=== PATIENT | female | born 1975 | race Two or more races ===

== ENCOUNTER 2017-05-03 15:35 | Inpatient (IN) | payer OTHER ==
[2017-05-03 17:49] VITALS: BMI 26.9
--- NOTE | 2017-05-03 19:00 | HP ---
Admission [facility] Chief Complaint: "I am here for rehab, I want to get better. I wan to be normal be off all off this stuff." Allergies/Adverse Reactions: Allergies Allergy/AdvReac Type Severity Reaction Status Date / Time divalproex sodium Allergy Severe Difficulty Verified 05/03/17 17:43 [From Depakote] Breathing pregabalin [From Lyrica] Allergy Severe Rash Verified 03/25/15 13:06 tramadol Allergy Severe Verified 03/25/15 13:06 History of Present Illness: 41 yo female with hx cocaine and nicotine dependence and occasional IV heroin dependence is here seeking rehab. PMHX: Fibromyalgia, Trigeminal neuralgia, Sciatica right lower extremity , Hep C, depression, asthma, Bipolar, mood disorder, anxiety, panic attacks. Last detox completed at [facility] 04/29/17. Denies hx of overdose. Reports last psychiatric admission was 4 months ago for suicide attempt by trying to attempt suicide. Patient currently denies suicide homicidal ideation. Longest period of sobriety 8 months. Currently attends out patient [facility] currently on 180 mg, last medicated . Exam Limitations: No Limitations - Ebola screening Have you traveled outside of the country in the last 21 days: No Have you had contact with anyone from an Ebola affected area: No Have you been sick,other than usual withdrawal symptoms: No Do you have a fever: No - Review of Systems Constitutional: Changes in sleep EENT: reports: Blurred Vision (wears glasses) Respiratory: reports: Wheezing Cardiac: reports: No Symptoms Reported GI: reports: Constipated, Poor Fluid Intake : reports: No Symptoms Reported Musculoskeletal: reports: No Symptoms Reported Integumentary: reports: No Symptoms Reported Neuro: reports: Seizure (last seizure 8 months ago) Endocrine: reports: No Symptoms Reported Hematology: reports: Anemia Psychiatric: reports: Orientated x3, Anxious Other Systems: Reviewed and Negative Patient History - Patient Medical History Hx Anemia: Yes (ON SUPLEMWNTS) Hx Asthma: Yes (Pt is on MDI) Hx Chronic Obstructive Pulmonary Disease (COPD): No Hx Cancer: No Hx Cardiac Disorders: No Hx Congestive Heart Failure: No Hx Hypertension: Yes (pt has a hx of HTN but is not meds.GOT OFF THE MED BY HER PMD PER PT.) Hx Hypercholesterolemia: No Hx Pacemaker: No HX Cerebrovascular Accident: No Hx Seizures: Yes (klonopin related seizure 8 months ago ) Hx Dementia: No Hx Diabetes: No Hx Gastrointestinal Disorders: No Hx Liver Disease: Yes (Hep C ) Hx Genitourinary Disorders: No Hx Sexually Transmitted Disorders: No Hx Renal Disease (ESRD): No Hx Thyroid Disease: No Hx Human Immunodeficiency Virus (HIV): No (NEGATIVE HX) Hx Hepatitis C: No Hx Depression: Yes Hx Suicide Attempt: Yes (Pt tried to overdose at age 17 yrs.) Hx Bipolar Disorder: Yes Hx Schizophrenia: No - Patient Surgical History Past Surgical History: Yes Hx Neurologic Surgery: No Hx Cataract Extraction: No Hx Cardiac Surgery: No Hx Lung Surgery: No Hx Breast Surgery: No Hx Breast Biopsy: No Hx Abdominal Surgery: No Hx Appendectomy: No Hx Cholecystectomy: No Hx Genitourinary Surgery: No Hx Section: No Hx Orthopedic Surgery: No Hx Hysterectomy: No Other Surgical History: Pt had sx for a pilonidal cyst. Anesthesia Reaction: No - PPD History Previous Implant?: Yes Documented Results: Negative w/proof Date: 03/27/15 PPD to be Administered?: Yes - Reproductive History Patient is a Female of Child Bearing Age (11 -55 yrs old): Yes Last Menstrual Period: 04/26/17 Patient : No - Smoking Cessation Smoking history: Current every day smoker Have you smoked in the past 12 months: Yes Aproximately how many cigarettes per day: 20 Hx Chewing Tobacco Use: No Initiated information on smoking cessation: Yes 'Breaking Loose' booklet given: 05/03/17 - Substances Abused Cocaine Route: Inhalation Frequency: Daily Amount used: $40-50 Age of first use: 39 Date of Last Use: 05/01/17 Family Disease History - Family Disease History Family Disease History: Diabetes: Mother (HTN), CA: Grandparent (GFATHER- ), Other: Father (HTN,LIVER CIRRHOSIS,DEPRESSION,DRUG ADDICTION- ), Mother Admission Physical Exam [facility] - Vital Signs Vital Signs: Vital Signs - 24 hr 05/03/17 17:43 Temperature 98.4 F Pulse Rate 61 Respiratory 18 Rate Blood Pressure 131/81 - Physical General Appearance: Yes: No Apparent Distress, Nourished, Appropriately Dressed , Anxious HEENTM: Yes: EOMI, Hearing grossly Normal, Normal ENT Inspection, Normocephalic , Normal Voice, Pharynx Normal, Tm's normal Respiratory: Yes: Chest Non-Tender, Lungs Clear, Normal Breath Sounds, No Respiratory Distress, No Accessory Muscle Use Neck: Yes: No masses,lesions,Nodules, Trachea in good position Breast: Yes: Breast Exam Deferred Cardiology: Yes: Regular Rhythm, Regular Rate Abdominal: Yes: Normal Bowel Sounds, Non Tender, Flat, Soft Genitourinary: Yes: Within Normal Limits Back: Yes: Normal Inspection Musculoskeletal: Yes: full range of Motion, Gait Steady, Pelvis Stable Extremities: Yes: Normal Capillary Refill, Normal Inspection, Normal Range of Motion, Non-Tender Neurological: Yes: 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 manager II-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 NML intact, Fully Oriented, Alert, Motor Strength 5/5, Normal Mood/Affect Integumentary: Yes: Normal Color, Dry, Warm Lymphatic: Yes: Within Normal Limits - Diagnostic (1) Anemia Current Visit: Yes Status: Chronic Qualifiers: Anemia type: unspecified type Qualified Code(s): D64.9 - Anemia, unspecified (2) Fibromyalgia Current Visit: Yes Status: Chronic (3) Trigeminal neuralgia Current Visit: Yes Status: Chronic (4) Sciatica of right side Current Visit: Yes Status: Chronic (5) Difficulty sleeping Current Visit: Yes Status: Acute (6) Psychiatric disorder Current Visit: Yes Status: Suspected (7) HTN (hypertension) Current Visit: Yes Status: Chronic Qualifiers: Hypertension type: essential hypertension Qualified Code(s): I10 - Essential (primary) hypertension (8) Asthma Current Visit: Yes Status: Chronic Qualifiers: Asthma severity: moderate Asthma complication type: uncomplicated Qualified Code(s): J45.20 - Mild intermittent asthma, uncomplicated (9) Cocaine dependence, uncomplicated Current Visit: Yes Status: Chronic (10) Methadone maintenance therapy patient Current Visit: Yes Status: Chronic Comment: on 180 mg Methadone, dose pending verification (11) Nicotine dependence Current Visit: Yes Status: Chronic Qualifiers: Nicotine product type: cigarettes Substance use status: uncomplicated Qualified Code(s): F17.210 - Nicotine dependence, cigarettes, uncomplicated (12) Constipation Current Visit: Yes Status: Acute [facility] Breath Alcohol Content Breath Alcohol Content: 0 Urine Pregancy Test - Result Urine Test Results: Negative- NO Line Present Urine Drug Screen - Results Drug Screen Negative: No Urine Drug Screen Results: EMILIO-Cocaine, BZO-Benzodiazepines, MTD-Methadone, TCA- Tricyclic Antidepress Inpatient Rehab Admission - Initial Determination Are CD services needed?: Yes Free of communicable disease: Yes Not in need of hospitalization: Yes - Rehab Admission Criteria Previous failed treatment: Yes Poor recovery environment: Yes Comorbidities: Yes Lacks judgement: Yes Patient is meeting Inpatient Rehab admission criteria:: Yes
[2017-05-03] MEDS ORDERED: LOPERAMIDE HCL 2 MG CAPSULE PO PRN (19:17)
[2017-05-03] MEDS ORDERED: guaiFENesin/D-METHORPHAN HB 10 ML UNIT-DOSE CUPS PO PRN (19:17)
[2017-05-03] MEDS ORDERED: P-EPHED 60MG/TRIPROLIDI 2.5MG TABLET PO PRN (19:17)
[2017-05-03] MEDS ORDERED: MENTHOL/PHENOL 1 EACH UD MM PRN (19:17)
[2017-05-03] MEDS ORDERED: MAGNESIUM CITRATE 300 ML BOTTLE PO PRN (19:17)
[2017-05-03] MEDS ORDERED: ALBUTEROL SO4 18 GM HFA INHALER IH PRN (19:18)
[2017-05-03] MEDS ORDERED: ALBUTEROL SO4 2.5/IPRATROPIUM 0.5 INH SOL 3 ML VIAL.NEB. NEB PRN (19:26)
[2017-05-03] MEDS ORDERED: TUBERCULIN PPD 5 TU/0.1ML VIAL ID ONE (22:25)
[2017-05-03 22:40] LABS: URINE APPEARANCE SLCLOUDY; URINE BILIRUBIN NEGATIVE (NEGATIVE); URINE BLOOD NEGATIVE (NEGATIVE); URINE COLOR DKYELLOW; URINE GLUCOSE (UA) NEGATIVE (NEGATIVE); URINE KETONE NEGATIVE (NEGATIVE); URINE LEUK ESTERASE TRACE (NEGATIVE); URINE NITRITE NEGATIVE (NEGATIVE); URINE PROTEIN NEGATIVE (NEGATIVE)
[2017-05-03 23:00] LABS: EPI CELLS RARE /HPF (FEW); URINE MUCUS MANY
[2017-05-03] MEDS: levETIRAcetam 500 MG TABLET (FP) PO SCH (23:21)
[2017-05-03] MEDS: QUEtiapine FUMARATE 300 MG TABLET PO SCH (23:21)
[2017-05-03] MEDS: MIRTAZAPINE 30 MG TABLET (FP) PO SCH (23:22)
[2017-05-03] MEDS: DOCUSATE SODIUM 100 MG CAPSULE (FP) PO SCH (23:22)
[2017-05-03] MEDS: NICOTINE POLACRILEX 2 MG GUM BC PRN (23:23)
[2017-05-03] MEDS: BUDESONIDE/FORMETEROL FUMARATE 160/4.5 mcg INHALER IH SCH (23:23)
[2017-05-03] MEDS: THIAMINE HCL 100 MG TABLET (FP) PO SCH (23:24)
[2017-05-04] MEDS: DOCUSATE SODIUM 100 MG CAPSULE (FP) PO SCH ×3 (06:25→21:05)
[2017-05-04] MEDS ORDERED: METHADONE HCL 40 MG DISPERSABLE TABLET PO ONE (07:34)
[2017-05-04] MEDS ORDERED: METHADONE 160 MG, METHADONE 10 MG PO ONE (09:00)
[2017-05-04] MEDS ORDERED: PT OWN MED DRAWER 7, Y5N ONE ×3 (09:03→21:08)
[2017-05-04] MEDS: levETIRAcetam 500 MG TABLET (FP) PO SCH ×2 (09:53→21:05)
[2017-05-04] MEDS: PRENATAL VITAMINS W/ FOLIC ACID TABLET (FP) PO SCH (09:53)
[2017-05-04] MEDS: NICOTINE 21 MG/24 HOURS TOPICAL PATCH TD SCH (09:53)
[2017-05-04] MEDS: NICOTINE POLACRILEX 2 MG GUM BC PRN ×4 (09:54→21:07)
[2017-05-04 10:25] LABS: HEMATOCRIT 34.2 % (32.4-45.2); HEMOGLOBIN 11.6 GM/dL (10.7-15.3); MCH 31.3 pg (25.7-33.7); MCHC 33.9 g/dl (32.0-36.0); MEAN CELL VOLUME 92.5 fl (80-96); MEAN PLT VOLUME 8.9 fl (7.5-11.1); PLATELET COUNT 239 K/MM3 (134-434); RDW 14.7 % (11.6-15.6); WHITE BLOOD COUNT 3.7 K/mm3 (4.0-10.0)
[2017-05-04 10:27] LABS: CHLORIDE 107 mmol/L (98-107); POTASSIUM 4.3 mmol/L (3.5-5.1); SODIUM 139 mmol/L (136-145)
[2017-05-04 10:42] LABS: ALBUMIN 3.6 g/dl (3.4-5.0); ALK PHOS 45 U/L (45-117); ANION GAP 5 (8-16); BILIRUBIN,TOTAL 0.4 mg/dL (0.2-1.0); BLOOD UREA NITROGEN 12 mg/dL (7-18); CALCIUM 8.5 mg/dL (8.5-10.1); CO2 27 mmol/L (21-32); CREATININE 0.8 mg/dL (0.55-1.02); GLUCOSE,RANDOM 99 mg/dL (74-106); SGOT/AST 37 U/L (15-37); SGPT/ALT 55 U/L (12-78); TOT PROT 6.8 g/dl (6.4-8.2)
[2017-05-04] MEDS: BUDESONIDE/FORMETEROL FUMARATE 160/4.5 mcg INHALER IH SCH ×2 (10:56→21:07)
--- NOTE | 2017-05-04 12:01 | EKG ---
Test Reason : Blood Pressure : / mmHG Vent. Rate : 058 BPM Atrial Rate : 058 BPM P-R Int : 116 ms QRS Dur : 096 ms QT Int : 472 ms P-R-T Axes : 047 052 048 degrees QTc Int : 463 ms SINUS BRADYCARDIA OTHERWISE NORMAL ECG NO PREVIOUS ECGS AVAILABLE Confirmed by MD Nicanor, Catrachito ([id number]) on 05/04/2017 12:01:02 PM Referred By: Confirmed By:Catrachito Vick MD
[2017-05-04] MEDS: MAG HYDROX/AL HYDROX/SIMETH 30 ML UNIT-DOSE CUP PO PRN (15:52)
[2017-05-04] MEDS: QUEtiapine FUMARATE 300 MG TABLET PO SCH (21:04)
[2017-05-04] MEDS: MIRTAZAPINE 30 MG TABLET (FP) PO SCH (21:08)
[2017-05-04] MEDS: THIAMINE HCL 100 MG TABLET (FP) PO SCH (21:08)
[2017-05-04] MEDS ORDERED: MIRTAZAPINE 30 MG TABLET (FP) PO SCH (22:00)
[2017-05-04] MEDS ORDERED: QUEtiapine FUMARATE 300 MG TABLET PO SCH (22:00)
[2017-05-05] MEDS: MAG HYDROX/AL HYDROX/SIMETH 30 ML UNIT-DOSE CUP PO PRN ×2 (01:35→09:37)
[2017-05-05] MEDS ORDERED: METHADONE HCL 10 MG TABLET ONE (04:07)
[2017-05-05] MEDS ORDERED: METHADONE HCL 40 MG DISPERSABLE TABLET ONE (04:08)
[2017-05-05] MEDS ORDERED: METHADONE 160 MG, METHADONE 10 MG PO ONE (06:00)
[2017-05-05] MEDS: DOCUSATE SODIUM 100 MG CAPSULE (FP) PO SCH ×3 (06:26→21:54)
[2017-05-05] MEDS: NICOTINE POLACRILEX 2 MG GUM BC PRN ×4 (06:28→17:43)
[2017-05-05] MEDS ORDERED: METHADONE HCL 10 MG TABLET PO ONE (07:35)
[2017-05-05] MEDS ORDERED: PT OWN MED DRAWER 7, Y5N ONE ×3 (09:21→21:57)
--- NOTE | 2017-05-05 09:46 | HP ---
Psychiatrist Admission - Data Date of interview: 05/05/17 Admission source: [facility] Identifying data: This is the first admission to [address] [place] [address] for this 41 years old female mother of 2 ,domiciled,unemployed. Medical History: Significant for Anemia,Fibromialgia. Psychiatric History: Patient is poor historia,reports being dx with Bipolar disorder about 5-6 years ago.She reports 2 psychiatric hospitalizations a few years ago due to severe depression.last psychiatric admission was 4 months ago due to suicidal attempt.She reports first suicidal attempt (DOD) at 17 years old.She stopped to see her psychiatrsit and obtained psychotropic medications from her PCP until recently.Patient is staill complaining of anxiety,mood swings ,difficulties to fall asleep.Current medications:Seroquel 300 mg po hs and Remeron 45 mg po hs,Clonopin 1 mg po prn for anxiety. Physical/Sexual Abuse/Trauma History: not willing to discuss at this time Vital Signs: Vital Signs - 24 hr 05/05/17 05/05/17 03:30 07:29 Temperature 98.1 F Pulse Rate 74 Respiratory 16 18 Rate Blood Pressure 105/64 Allergies/Adverse Reactions: Allergies Allergy/AdvReac Type Severity Reaction Status Date / Time divalproex sodium Allergy Severe Difficulty Verified 05/03/17 17:43 [From Depakote] Breathing pregabalin [From Lyrica] Allergy Severe Rash Verified 03/25/15 13:06 tramadol Allergy Severe Verified 03/25/15 13:06 Date of last physical exam: 05/03/17 Concur with the findings of this exam: Yes - Substance Abuse/Tx History Hx Alcohol Use: No Hx Substance Use: Yes (benzo since 37 yo,12 mg daily,cocaine since 31,heroin since 36 yo,4 bags da) Substance Use Type: Alcohol, Cocaine, Heroin, Tranquilizers Hx Substance Use Treatment: Yes (,last det 04/29/17 [facility]) Mental Status Exam - Mental Status Exam Alert and Oriented to: Time, Place, Person Cognitive Function: Grossly Intact Patient Appearance: Unkempt Mood: Nervous Affect: Labile Patient Behavior: Cooperative Speech Pattern: Clear Voice Loudness: Normal Thought Process: Goal Oriented Thought Disorder: Not Present Hallucinations: Denies Suicidal Ideation: Denies Homicidal Ideation: Denies Insight/Judgement: Fair Sleep: Difficulty falling asleep Appetite: Good Muscle strength/Tone: Normal Psychiatric Findings - Problem List ([place] 1, 2,3) (1) Anemia Current Visit: Yes Status: Chronic Qualifiers: Anemia type: unspecified type Qualified Code(s): D64.9 - Anemia, unspecified (2) Asthma Current Visit: Yes Status: Chronic Qualifiers: Asthma severity: moderate Asthma complication type: uncomplicated (3) Fibromyalgia Current Visit: Yes Status: Chronic (4) HTN (hypertension) Current Visit: Yes Status: Chronic Qualifiers: Hypertension type: essential hypertension Qualified Code(s): I10 - Essential (primary) hypertension (5) Methadone maintenance therapy patient Current Visit: Yes Status: Chronic Comment: on 180 mg Methadone, dose pending verification (6) Cocaine dependence Current Visit: Yes Status: Chronic (7) Bipolar II disorder Current Visit: Yes Status: Chronic (8) Opioid dependence on agonist therapy Current Visit: Yes Status: Chronic - Initial Treatment Plan Initial Treatment Plan: Continue Seroquel 300 mg po hs,Remeron 45 mg po hs,add Belsomra 10 mg po hs prn for insomnia.Will monitor progress.
[2017-05-05] MEDS: PRENATAL VITAMINS W/ FOLIC ACID TABLET (FP) PO SCH (10:23)
[2017-05-05] MEDS: levETIRAcetam 500 MG TABLET (FP) PO SCH ×2 (10:23→21:54)
[2017-05-05] MEDS: NICOTINE 21 MG/24 HOURS TOPICAL PATCH TD SCH (10:23)
[2017-05-05] MEDS: BUDESONIDE/FORMETEROL FUMARATE 160/4.5 mcg INHALER IH SCH ×2 (10:24→21:57)
[2017-05-05] MEDS: MAGNESIUM HYDROX 2400MG/30ML ORAL SUSPENSION 30 ML CUP PO PRN (11:58)
[2017-05-05] MEDS: RANITIDINE HCL 150 MG TABLET (FP) PO SCH ×2 (13:36→21:54)
[2017-05-05] MEDS: COLLOIDAL OATMEAL 1 BAR EACH TP PRN (13:38)
[2017-05-05] MEDS: FLUTICASONE PROP 0.05% 16 GM NASAL SPRAY NS SCH (15:17)
[2017-05-05] MEDS: hydrOXYzine PAMOATE 50 MG CAPSULE (FP) PO PRN (17:44)
[2017-05-05] MEDS: THIAMINE HCL 100 MG TABLET (FP) PO SCH (21:54)
[2017-05-05] MEDS: QUEtiapine FUMARATE 300 MG TABLET PO SCH (21:58)
[2017-05-05] MEDS: MIRTAZAPINE 30 MG TABLET (FP) PO SCH (21:59)
[2017-05-05] MEDS: SUVOREXANT 10 MG TABLET PO PRN (21:59)
[2017-05-06] MEDS ORDERED: METHADONE HCL 10 MG TABLET PO SCH (06:00)
[2017-05-06] MEDS ORDERED: METHADONE HCL 40 MG DISPERSABLE TABLET ONE (06:19)
[2017-05-06] MEDS ORDERED: METHADONE HCL 10 MG TABLET ONE (06:19)
[2017-05-06] MEDS: METHADONE 160 MG, METHADONE 20 MG PO SCH (06:23)
[2017-05-06] MEDS: DOCUSATE SODIUM 100 MG CAPSULE (FP) PO SCH ×3 (06:24→21:31)
[2017-05-06] MEDS: NICOTINE POLACRILEX 2 MG GUM BC PRN ×6 (06:25→21:34)
[2017-05-06] MEDS: hydrOXYzine PAMOATE 50 MG CAPSULE (FP) PO PRN ×3 (08:44→17:03)
[2017-05-06] MEDS: FLUTICASONE PROP 0.05% 16 GM NASAL SPRAY NS SCH (10:08)
[2017-05-06] MEDS: levETIRAcetam 500 MG TABLET (FP) PO SCH ×2 (10:09→21:32)
[2017-05-06] MEDS: NICOTINE 21 MG/24 HOURS TOPICAL PATCH TD SCH (10:09)
[2017-05-06] MEDS: BUDESONIDE/FORMETEROL FUMARATE 160/4.5 mcg INHALER IH SCH ×2 (10:10→22:38)
[2017-05-06] MEDS: PRENATAL VITAMINS W/ FOLIC ACID TABLET (FP) PO SCH (10:10)
[2017-05-06] MEDS: RANITIDINE HCL 150 MG TABLET (FP) PO SCH ×2 (10:10→21:31)
[2017-05-06] MEDS: THIAMINE HCL 100 MG TABLET (FP) PO SCH (21:31)
[2017-05-06] MEDS: QUEtiapine FUMARATE 300 MG TABLET PO SCH (21:31)
[2017-05-06] MEDS: MIRTAZAPINE 30 MG TABLET (FP) PO SCH (21:32)
[2017-05-06] MEDS: SODIUM CHLORIDE NASAL SPRAY 44 ML BOTTLE NS PRN (21:33)
[2017-05-06] MEDS: SUVOREXANT 10 MG TABLET PO PRN (21:36)
[2017-05-06] MEDS: IBUPROFEN 400 MG TABLET (FP) PO PRN (22:38)
[2017-05-07] MEDS ORDERED: METHADONE HCL 10 MG TABLET ONE (05:58)
[2017-05-07] MEDS ORDERED: METHADONE HCL 40 MG DISPERSABLE TABLET ONE (05:59)
[2017-05-07] MEDS: DOCUSATE SODIUM 100 MG CAPSULE (FP) PO SCH ×3 (06:20→21:37)
[2017-05-07] MEDS: hydrOXYzine PAMOATE 50 MG CAPSULE (FP) PO PRN ×4 (06:20→20:08)
[2017-05-07] MEDS: NICOTINE POLACRILEX 2 MG GUM BC PRN ×4 (06:20→20:08)
[2017-05-07] MEDS: METHADONE 160 MG, METHADONE 20 MG PO SCH (06:21)
[2017-05-07] MEDS ORDERED: PT OWN MED DRAWER 7, Y5N ONE ×2 (08:47→10:35)
[2017-05-07] MEDS: RANITIDINE HCL 150 MG TABLET (FP) PO SCH ×2 (10:31→21:37)
[2017-05-07] MEDS: levETIRAcetam 500 MG TABLET (FP) PO SCH ×2 (10:31→21:37)
[2017-05-07] MEDS: BUDESONIDE/FORMETEROL FUMARATE 160/4.5 mcg INHALER IH SCH ×2 (10:31→21:35)
[2017-05-07] MEDS: NICOTINE 21 MG/24 HOURS TOPICAL PATCH TD SCH (10:31)
[2017-05-07] MEDS: PRENATAL VITAMINS W/ FOLIC ACID TABLET (FP) PO SCH (10:31)
[2017-05-07] MEDS: SODIUM CHLORIDE NASAL SPRAY 44 ML BOTTLE NS PRN ×2 (10:35→21:35)
[2017-05-07] MEDS: FLUTICASONE PROP 0.05% 16 GM NASAL SPRAY NS SCH (10:41)
[2017-05-07] MEDS: MAG HYDROX/AL HYDROX/SIMETH 30 ML UNIT-DOSE CUP PO PRN (11:16)
[2017-05-07] MEDS: IBUPROFEN 400 MG TABLET (FP) PO PRN (20:06)
[2017-05-07] MEDS: MIRTAZAPINE 30 MG TABLET (FP) PO SCH (21:35)
[2017-05-07] MEDS: SUVOREXANT 10 MG TABLET PO PRN (21:35)
[2017-05-07] MEDS: QUEtiapine FUMARATE 300 MG TABLET PO SCH (21:37)
[2017-05-07] MEDS: THIAMINE HCL 100 MG TABLET (FP) PO SCH (21:37)
[2017-05-08] MEDS ORDERED: METHADONE HCL 10 MG TABLET ONE (03:27)
[2017-05-08] MEDS ORDERED: METHADONE HCL 40 MG DISPERSABLE TABLET ONE (03:28)
[2017-05-08] MEDS: DOCUSATE SODIUM 100 MG CAPSULE (FP) PO SCH ×3 (06:16→21:03)
[2017-05-08] MEDS: hydrOXYzine PAMOATE 50 MG CAPSULE (FP) PO PRN ×4 (06:16→21:08)
[2017-05-08] MEDS: METHADONE 160 MG, METHADONE 20 MG PO SCH (06:17)
[2017-05-08] MEDS: NICOTINE POLACRILEX 2 MG GUM BC PRN ×5 (06:17→21:07)
[2017-05-08] MEDS: SODIUM CHLORIDE NASAL SPRAY 44 ML BOTTLE NS PRN ×2 (10:23→21:07)
[2017-05-08] MEDS: FLUTICASONE PROP 0.05% 16 GM NASAL SPRAY NS SCH (10:23)
[2017-05-08] MEDS: NICOTINE 21 MG/24 HOURS TOPICAL PATCH TD SCH (10:23)
[2017-05-08] MEDS: PRENATAL VITAMINS W/ FOLIC ACID TABLET (FP) PO SCH (10:24)
[2017-05-08] MEDS: RANITIDINE HCL 150 MG TABLET (FP) PO SCH ×2 (10:24→21:03)
[2017-05-08] MEDS: levETIRAcetam 500 MG TABLET (FP) PO SCH ×2 (10:24→21:03)
[2017-05-08] MEDS: BUDESONIDE/FORMETEROL FUMARATE 160/4.5 mcg INHALER IH SCH ×2 (10:24→21:03)
[2017-05-08] MEDS: IBUPROFEN 400 MG TABLET (FP) PO PRN (16:59)
[2017-05-08] MEDS: COLLOIDAL OATMEAL 1 BAR EACH TP PRN (17:00)
[2017-05-08] MEDS: MAG HYDROX/AL HYDROX/SIMETH 30 ML UNIT-DOSE CUP PO PRN (17:06)
[2017-05-08] MEDS: QUEtiapine FUMARATE 300 MG TABLET PO SCH (21:03)
[2017-05-08] MEDS: THIAMINE HCL 100 MG TABLET (FP) PO SCH (21:03)
[2017-05-08] MEDS: SUVOREXANT 10 MG TABLET PO PRN (21:06)
[2017-05-08] MEDS: MIRTAZAPINE 30 MG TABLET (FP) PO SCH (21:09)
[2017-05-09] MEDS ORDERED: METHADONE HCL 10 MG TABLET ONE (03:56)
[2017-05-09] MEDS ORDERED: METHADONE HCL 40 MG DISPERSABLE TABLET ONE (03:56)
[2017-05-09] MEDS: METHADONE 160 MG, METHADONE 20 MG PO SCH (06:35)
[2017-05-09] MEDS: hydrOXYzine PAMOATE 50 MG CAPSULE (FP) PO PRN ×3 (06:36→17:08)
[2017-05-09] MEDS: NICOTINE POLACRILEX 2 MG GUM BC PRN ×5 (06:36→21:25)
[2017-05-09] MEDS: DOCUSATE SODIUM 100 MG CAPSULE (FP) PO SCH ×3 (06:36→21:21)
[2017-05-09] MEDS: IBUPROFEN 400 MG TABLET (FP) PO PRN (07:13)
[2017-05-09] MEDS: MAGNESIUM HYDROX 2400MG/30ML ORAL SUSPENSION 30 ML CUP PO PRN (07:14)
[2017-05-09] MEDS ORDERED: levETIRAcetam 500 MG TABLET (FP) PO ONE (07:17)
--- NOTE | 2017-05-09 07:18 | PN ---
[facility] Progress Note Note: give keppra 500 mg po now for keppra level of 6.9
[2017-05-09] MEDS ORDERED: PT OWN MED DRAWER 7, Y5N ONE (08:55)
[2017-05-09] MEDS: levETIRAcetam 500 MG TABLET (FP) PO SCH ×2 (10:16→21:21)
[2017-05-09] MEDS: PRENATAL VITAMINS W/ FOLIC ACID TABLET (FP) PO SCH (10:16)
[2017-05-09] MEDS: BUDESONIDE/FORMETEROL FUMARATE 160/4.5 mcg INHALER IH SCH ×2 (10:17→21:22)
[2017-05-09] MEDS: RANITIDINE HCL 150 MG TABLET (FP) PO SCH ×2 (10:17→21:22)
[2017-05-09] MEDS: NICOTINE 21 MG/24 HOURS TOPICAL PATCH TD SCH (10:18)
[2017-05-09] MEDS: SODIUM CHLORIDE NASAL SPRAY 44 ML BOTTLE NS PRN ×2 (10:18→21:25)
[2017-05-09] MEDS: FLUTICASONE PROP 0.05% 16 GM NASAL SPRAY NS SCH (10:19)
[2017-05-09] MEDS: ACETAMINOPHEN 325 MG TABLET (FP) PO PRN (11:23)
[2017-05-09] MEDS ORDERED: SUVOREXANT 10 MG TABLET PO PRN (12:18)
[2017-05-09] MEDS: MAG HYDROX/AL HYDROX/SIMETH 30 ML UNIT-DOSE CUP PO PRN (17:37)
[2017-05-09] MEDS: THIAMINE HCL 100 MG TABLET (FP) PO SCH (21:21)
[2017-05-09] MEDS: QUEtiapine FUMARATE 300 MG TABLET PO SCH (21:21)
[2017-05-09] MEDS: MIRTAZAPINE 30 MG TABLET (FP) PO SCH (21:22)
[2017-05-09] MEDS: SUVOREXANT 10 MG TABLET PO PRN (21:24)
[2017-05-10] MEDS: hydrOXYzine PAMOATE 50 MG CAPSULE (FP) PO PRN ×4 (01:13→17:09)
[2017-05-10] MEDS: NICOTINE POLACRILEX 2 MG GUM BC PRN ×5 (01:14→21:12)
[2017-05-10] MEDS ORDERED: METHADONE HCL 10 MG TABLET ONE (03:15)
[2017-05-10] MEDS ORDERED: METHADONE HCL 40 MG DISPERSABLE TABLET ONE (03:16)
[2017-05-10] MEDS: METHADONE 160 MG, METHADONE 20 MG PO SCH (06:20)
[2017-05-10] MEDS: DOCUSATE SODIUM 100 MG CAPSULE (FP) PO SCH ×3 (06:21→21:09)
[2017-05-10] MEDS: IBUPROFEN 400 MG TABLET (FP) PO PRN ×2 (06:21→18:49)
[2017-05-10] MEDS ORDERED: PT OWN MED DRAWER 7, Y5N ONE (08:44)
[2017-05-10] MEDS: PRENATAL VITAMINS W/ FOLIC ACID TABLET (FP) PO SCH (09:16)
[2017-05-10] MEDS: RANITIDINE HCL 150 MG TABLET (FP) PO SCH ×2 (09:16→21:10)
[2017-05-10] MEDS: levETIRAcetam 500 MG TABLET (FP) PO SCH ×2 (09:16→21:10)
[2017-05-10] MEDS: NICOTINE 21 MG/24 HOURS TOPICAL PATCH TD SCH (09:17)
[2017-05-10] MEDS: BUDESONIDE/FORMETEROL FUMARATE 160/4.5 mcg INHALER IH SCH ×2 (09:17→21:13)
[2017-05-10] MEDS: FLUTICASONE PROP 0.05% 16 GM NASAL SPRAY NS SCH (09:18)
[2017-05-10] MEDS: THIAMINE HCL 100 MG TABLET (FP) PO SCH (21:09)
[2017-05-10] MEDS: QUEtiapine FUMARATE 300 MG TABLET PO SCH (21:10)
[2017-05-10] MEDS: MIRTAZAPINE 30 MG TABLET (FP) PO SCH (21:10)
[2017-05-10] MEDS: SUVOREXANT 10 MG TABLET PO PRN (21:12)
[2017-05-11] MEDS: hydrOXYzine PAMOATE 50 MG CAPSULE (FP) PO PRN ×3 (04:42→16:00)
[2017-05-11] MEDS: NICOTINE POLACRILEX 2 MG GUM BC PRN ×2 (04:43→06:49)
[2017-05-11] MEDS ORDERED: METHADONE HCL 40 MG DISPERSABLE TABLET ONE (05:59)
[2017-05-11] MEDS ORDERED: METHADONE HCL 10 MG TABLET ONE (05:59)
[2017-05-11] MEDS: DOCUSATE SODIUM 100 MG CAPSULE (FP) PO SCH ×3 (06:12→21:46)
[2017-05-11] MEDS: METHADONE 160 MG, METHADONE 20 MG PO SCH (06:13)
[2017-05-11] MEDS: MAGNESIUM HYDROX 2400MG/30ML ORAL SUSPENSION 30 ML CUP PO PRN (06:49)
[2017-05-11] MEDS ORDERED: PT OWN MED DRAWER 7, Y5N ONE (09:07)
[2017-05-11] MEDS: NICOTINE 21 MG/24 HOURS TOPICAL PATCH TD SCH (09:46)
[2017-05-11] MEDS: PRENATAL VITAMINS W/ FOLIC ACID TABLET (FP) PO SCH (09:46)
[2017-05-11] MEDS: BUDESONIDE/FORMETEROL FUMARATE 160/4.5 mcg INHALER IH SCH ×2 (09:46→21:47)
[2017-05-11] MEDS: RANITIDINE HCL 150 MG TABLET (FP) PO SCH ×2 (09:46→21:45)
[2017-05-11] MEDS: SODIUM CHLORIDE NASAL SPRAY 44 ML BOTTLE NS PRN ×2 (09:47→21:47)
[2017-05-11] MEDS: levETIRAcetam 500 MG TABLET (FP) PO SCH ×2 (09:47→21:45)
[2017-05-11] MEDS: COLLOIDAL OATMEAL 1 BAR EACH TP PRN (09:49)
[2017-05-11] MEDS: FLUTICASONE PROP 0.05% 16 GM NASAL SPRAY NS SCH (09:49)
[2017-05-11] MEDS: NICOTINE POLACRILEX 4 MG GUM BUC PRN ×4 (12:30→21:47)
[2017-05-11] MEDS: IBUPROFEN 400 MG TABLET (FP) PO PRN (12:36)
[2017-05-11] MEDS: ACETAMINOPHEN 325 MG TABLET (FP) PO PRN ×2 (15:58→21:22)
--- NOTE | 2017-05-11 16:04 | PN ---
[facility] Progress Note (SOAP) Subjective: patietn c/o rash underarms, worried she is Objective: 05/11/17 16:03 Vital Signs - 24 hr 05/11/17 05/11/17 05/11/17 00:30 03:30 06:11 Temperature 97.8 F Pulse Rate 71 Respiratory 17 18 18 Rate Blood Pressure 111/70 round dermatitisunder both arms Assessment: 05/11/17 16:04 prenancy test neg, contact dermatitis - hydrocortisone cream
[2017-05-11] MEDS: THIAMINE HCL 100 MG TABLET (FP) PO SCH (21:44)
[2017-05-11] MEDS: MIRTAZAPINE 30 MG TABLET (FP) PO SCH (21:45)
[2017-05-11] MEDS: QUEtiapine FUMARATE 300 MG TABLET PO SCH (21:45)
[2017-05-12] MEDS: NICOTINE POLACRILEX 4 MG GUM BUC PRN ×4 (03:18→17:26)
[2017-05-12] MEDS: hydrOXYzine PAMOATE 50 MG CAPSULE (FP) PO PRN ×3 (03:18→14:56)
[2017-05-12] MEDS ORDERED: METHADONE HCL 40 MG DISPERSABLE TABLET ONE (03:34)
[2017-05-12] MEDS ORDERED: METHADONE HCL 10 MG TABLET ONE (03:34)
[2017-05-12] MEDS: METHADONE 160 MG, METHADONE 20 MG PO SCH (06:18)
[2017-05-12] MEDS: IBUPROFEN 400 MG TABLET (FP) PO PRN ×2 (06:19→19:38)
[2017-05-12] MEDS: DOCUSATE SODIUM 100 MG CAPSULE (FP) PO SCH ×3 (06:19→21:55)
[2017-05-12] MEDS: FLUTICASONE PROP 0.05% 16 GM NASAL SPRAY NS SCH (10:17)
[2017-05-12] MEDS: NICOTINE 21 MG/24 HOURS TOPICAL PATCH TD SCH (10:17)
[2017-05-12] MEDS: PRENATAL VITAMINS W/ FOLIC ACID TABLET (FP) PO SCH (10:18)
[2017-05-12] MEDS: RANITIDINE HCL 150 MG TABLET (FP) PO SCH ×2 (10:18→21:56)
[2017-05-12] MEDS: BUDESONIDE/FORMETEROL FUMARATE 160/4.5 mcg INHALER IH SCH ×2 (10:18→21:57)
[2017-05-12] MEDS: levETIRAcetam 500 MG TABLET (FP) PO SCH ×2 (10:18→21:56)
[2017-05-12] MEDS: ACETAMINOPHEN 325 MG TABLET (FP) PO PRN (10:20)
--- NOTE | 2017-05-12 14:14 | PN ---
Psychiatric Progress Note Vital Signs: Vital Signs Period Temp Pulse Resp BP Sys/Wesley Pulse Ox Last 24 Hr 97.8 F 73 16-18 121/62 Date of Session: 05/12/17 Chief Complaint:: Abebe still depressed and feeling down." Current Medications: Active Medications Generic Name Dose Route Start Last Admin Trade Name Freq PRN Reason Stop Dose Admin Acetaminophen 650 mg 05/03/17 19:17 05/12/17 10:20 Tylenol - PO 650 mg Q4H PRN Administration FEVER Al Hydroxide/Mg Hydroxide 30 ml 05/03/17 19:17 05/09/17 17:37 Mylanta Oral Suspension - PO 30 ml Q6H PRN Administration DYSPEPSIA Albuterol Sulfate 2 puff 05/03/17 19:18 Ventolin Hfa Inhaler - IH Q4H PRN SHORT OF BREATH/WHEEZING Albuterol/Ipratropium 1 amp 05/03/17 19:26 Duoneb - NEB Q6H PRN SHORTNESS OF BREATH Budesonide/Formoterol Fumarate 1 puff 05/03/17 22:00 05/12/17 10:18 Symbicort 160/4.5mcg - IH 1 puff BID SANDY Administration Colloidal Oatmeal 1 applic 05/05/17 12:38 05/11/17 09:49 Aveeno Soap - TP 1 bar DAILY PRN Administration HYGEINE Docusate Sodium 100 mg 05/03/17 22:00 05/12/17 13:05 Colace - PO 100 mg TID SANDY Administration Escitalopram Oxalate 5 mg 05/12/17 14:00 Lexapro - PO DAILY SANDY Eucalyptus/Menthol/Phenol/Sorbitol 1 each 05/03/17 19:17 Cepastat Lozenge - MM Q4H PRN SORE THROAT Fluticasone Propionate 2 spray 05/05/17 13:15 05/12/17 10:17 Flonase - NS Not Given DAILY SANDY Guaifenesin 10 ml 05/03/17 19:17 Robitussin Dm - PO Q6H PRN COUGH Hydrocortisone 1 applic 05/11/17 16:04 Hytone 0.5% Ointment - TP DAILY PRN FOR ITCHING Hydroxyzine Pamoate 50 mg 05/03/17 19:17 05/12/17 10:20 Vistaril - PO 50 mg Q4H PRN Administration AGITATION Ibuprofen 400 mg 05/03/17 19:17 05/12/17 06:19 Motrin - PO 400 mg Q6H PRN Administration Pain level 4-6 Levetiracetam 500 mg 05/03/17 22:00 05/12/17 10:18 Keppra - PO 500 mg BID SANDY Administration Loperamide HCl 4 mg 05/03/17 19:17 Imodium - PO Q6H PRN DIARRHEA Magnesium Citrate 300 ml 05/03/17 19:17 05/06/17 08:46 Citroma - PO 300 ml Q48H PRN Administration CONSTIPATION Magnesium Hydroxide 30 ml 05/03/17 19:17 05/11/17 06:49 Milk Of Magnesia - PO 30 ml DAILY PRN Administration CONSTIPATION Methadone HCl 160 mg/ 180 mg 05/06/17 06:00 05/12/17 06:18 Methadone HCl 20 mg PO 180 mg DAILY@0600 SANDY Administration Mirtazapine 45 mg 05/03/17 23:15 05/11/17 21:45 Remeron - PO 45 mg HS SANDY Administration Nicotine 21 mg 05/04/17 10:00 05/12/17 10:17 Nicoderm Patch - TD 21 mg DAILY SANDY Administration Nicotine Polacrilex 4 mg 05/11/17 07:54 05/12/17 13:05 Nicorette Gum - BUC 4 mg Q2H PRN Administration NICOTINE REPLACEMENT RX Multivit/Folic Acid/Iron 1 tab 05/04/17 10:00 05/12/17 10:18 Vitamins (Sjr) - PO 1 tab DAILY SANDY Administration Pseudoephedrine/Triprolidine 1 combo 05/03/17 19:17 Actifed - PO TID PRN NASAL CONGESTION Quetiapine Fumarate 300 mg 05/05/17 22:00 05/11/17 21:45 Seroquel - PO 300 mg HS SANDY Administration Ranitidine HCl 150 mg 05/05/17 13:15 05/12/17 10:18 Zantac - PO 150 mg BID SANDY Administration Sodium Chloride 2 spray 05/06/17 09:36 05/11/17 21:47 [place] Nasal [place] - NS 2 spray BID PRN Administration NASAL CONGESTION Thiamine HCl 100 mg 05/03/17 22:00 05/11/17 21:44 Vitamin B1 - PO 100 mg HS SANDY Administration Current Side Effect: No Lab tests ordered: No Lab tests reviewed: Yes Provider note:: Chart was revuewed,patient was seen today to address her issues -ongoing sleeping difficulties,depression,mood instability.Properties of Lexapro and other antidepressants has been discussed including side effects and benefits as well as dose adjustment.Start Lexapro 5 mg po daily,Continue Seroquel 300 mg po hs,Remeron 45 mg po hs,Belsomra 10 mg po hs prn for insomnia. Supportive therapy provided. Total face to face time:: 25 Mental Status Exam - Mental Status Exam Alert and Oriented to: Time, Place, Person Cognitive Function: Grossly Intact Patient Appearance: Well Groomed Mood: Depressed, Sad Affect: Mood Congruent, Labile Patient Behavior: Cooperative Speech Pattern: Clear Voice Loudness: Normal Thought Process: Goal Oriented Thought Disorder: Not Present Hallucinations: Denies Homicidal Ideation: Denies Insight/Judgement: Fair Sleep: Difficulty falling asleep Appetite: Good Muscle strength/Tone: Normal Gait/Station: Normal Psychiatric Treatment Plan - Problem List (1) Anemia Current Visit: Yes Qualifiers: Anemia type: unspecified type Qualified Code(s): D64.9 - Anemia, unspecified (2) Asthma Current Visit: Yes Qualifiers: Asthma severity: moderate Asthma complication type: uncomplicated (3) Fibromyalgia Current Visit: Yes (4) HTN (hypertension) Current Visit: Yes Qualifiers: Hypertension type: essential hypertension Qualified Code(s): I10 - Essential (primary) hypertension (5) Methadone maintenance therapy patient Current Visit: Yes Comment: on 180 mg Methadone, dose pending verification (6) Cocaine dependence Current Visit: Yes (7) Bipolar II disorder Current Visit: Yes (8) Opioid dependence on agonist therapy Current Visit: Yes
[2017-05-12] MEDS: ESCITALOPRAM OXALATE 10 MG TABLET (FP) PO SCH (14:54)
[2017-05-12] MEDS: THIAMINE HCL 100 MG TABLET (FP) PO SCH (21:55)
[2017-05-12] MEDS: MIRTAZAPINE 30 MG TABLET (FP) PO SCH (21:56)
[2017-05-12] MEDS: QUEtiapine FUMARATE 300 MG TABLET PO SCH (21:56)
[2017-05-12] MEDS: SUVOREXANT 10 MG TABLET PO PRN (21:58)
[2017-05-13] MEDS ORDERED: METHADONE HCL 10 MG TABLET ONE (03:28)
[2017-05-13] MEDS ORDERED: METHADONE HCL 40 MG DISPERSABLE TABLET ONE (03:28)
[2017-05-13] MEDS: METHADONE 160 MG, METHADONE 20 MG PO SCH (06:25)
[2017-05-13] MEDS: DOCUSATE SODIUM 100 MG CAPSULE (FP) PO SCH ×3 (06:27→21:42)
[2017-05-13] MEDS: hydrOXYzine PAMOATE 50 MG CAPSULE (FP) PO PRN ×3 (06:28→17:12)
[2017-05-13] MEDS: NICOTINE POLACRILEX 4 MG GUM BUC PRN ×5 (06:28→21:44)
[2017-05-13] MEDS: levETIRAcetam 500 MG TABLET (FP) PO SCH ×2 (09:36→21:42)
[2017-05-13] MEDS: NICOTINE 21 MG/24 HOURS TOPICAL PATCH TD SCH (09:36)
[2017-05-13] MEDS: PRENATAL VITAMINS W/ FOLIC ACID TABLET (FP) PO SCH (09:36)
[2017-05-13] MEDS: HYDROCORTISONE 0.5% TOPICAL OINTMENT TUBE TP PRN (09:37)
[2017-05-13] MEDS: RANITIDINE HCL 150 MG TABLET (FP) PO SCH ×2 (09:37→21:42)
[2017-05-13] MEDS: FLUTICASONE PROP 0.05% 16 GM NASAL SPRAY NS SCH (09:37)
[2017-05-13] MEDS: BUDESONIDE/FORMETEROL FUMARATE 160/4.5 mcg INHALER IH SCH ×2 (09:37→21:45)
[2017-05-13] MEDS: ESCITALOPRAM OXALATE 10 MG TABLET (FP) PO SCH (10:13)
[2017-05-13] MEDS ORDERED: PT OWN MED DRAWER 7, Y5N ONE (17:34)
[2017-05-13] MEDS: SODIUM CHLORIDE NASAL SPRAY 44 ML BOTTLE NS PRN (17:38)
[2017-05-13] MEDS: COLLOIDAL OATMEAL 1 BAR EACH TP PRN (18:28)
[2017-05-13] MEDS: THIAMINE HCL 100 MG TABLET (FP) PO SCH (21:42)
[2017-05-13] MEDS: QUEtiapine FUMARATE 300 MG TABLET PO SCH (21:42)
[2017-05-13] MEDS: SUVOREXANT 10 MG TABLET PO PRN (21:43)
[2017-05-13] MEDS: MIRTAZAPINE 15 MG TABLET (FP) PO SCH (21:44)
[2017-05-14] MEDS ORDERED: METHADONE HCL 40 MG DISPERSABLE TABLET ONE (03:16)
[2017-05-14] MEDS ORDERED: METHADONE HCL 10 MG TABLET ONE (03:16)
[2017-05-14] MEDS: METHADONE 160 MG, METHADONE 20 MG PO SCH (06:06)
[2017-05-14] MEDS: IBUPROFEN 400 MG TABLET (FP) PO PRN (06:07)
[2017-05-14] MEDS: DOCUSATE SODIUM 100 MG CAPSULE (FP) PO SCH ×3 (06:07→21:09)
[2017-05-14] MEDS: hydrOXYzine PAMOATE 50 MG CAPSULE (FP) PO PRN ×3 (06:07→14:35)
[2017-05-14] MEDS: NICOTINE POLACRILEX 4 MG GUM BUC PRN ×4 (06:08→17:06)
[2017-05-14] MEDS: NICOTINE 21 MG/24 HOURS TOPICAL PATCH TD SCH (10:15)
[2017-05-14] MEDS: ESCITALOPRAM OXALATE 10 MG TABLET (FP) PO SCH (10:16)
[2017-05-14] MEDS: levETIRAcetam 500 MG TABLET (FP) PO SCH ×2 (10:17→21:09)
[2017-05-14] MEDS: PRENATAL VITAMINS W/ FOLIC ACID TABLET (FP) PO SCH (10:17)
[2017-05-14] MEDS: RANITIDINE HCL 150 MG TABLET (FP) PO SCH ×2 (10:17→21:10)
[2017-05-14] MEDS: BUDESONIDE/FORMETEROL FUMARATE 160/4.5 mcg INHALER IH SCH ×2 (10:18→21:13)
[2017-05-14] MEDS: FLUTICASONE PROP 0.05% 16 GM NASAL SPRAY NS SCH (10:18)
[2017-05-14] MEDS: SODIUM CHLORIDE NASAL SPRAY 44 ML BOTTLE NS PRN (10:18)
[2017-05-14] MEDS: MIRTAZAPINE 15 MG TABLET (FP) PO SCH (21:09)
[2017-05-14] MEDS: THIAMINE HCL 100 MG TABLET (FP) PO SCH (21:10)
[2017-05-14] MEDS: QUEtiapine FUMARATE 300 MG TABLET PO SCH (21:10)
[2017-05-14] MEDS: SUVOREXANT 10 MG TABLET PO PRN (21:12)
[2017-05-14] MEDS ORDERED: PT OWN MED DRAWER 7, Y5N ONE (21:14)
[2017-05-15] MEDS ORDERED: METHADONE HCL 10 MG TABLET ONE (05:56)
[2017-05-15] MEDS ORDERED: METHADONE HCL 40 MG DISPERSABLE TABLET ONE (05:57)
[2017-05-15] MEDS: hydrOXYzine PAMOATE 50 MG CAPSULE (FP) PO PRN ×4 (06:15→20:10)
[2017-05-15] MEDS: METHADONE 160 MG, METHADONE 20 MG PO SCH (06:15)
[2017-05-15] MEDS: DOCUSATE SODIUM 100 MG CAPSULE (FP) PO SCH ×3 (06:15→21:43)
[2017-05-15] MEDS ORDERED: PT OWN MED DRAWER 7, Y5N ONE (08:58)
[2017-05-15] MEDS: BUDESONIDE/FORMETEROL FUMARATE 160/4.5 mcg INHALER IH SCH ×2 (10:30→21:45)
[2017-05-15] MEDS: RANITIDINE HCL 150 MG TABLET (FP) PO SCH ×2 (10:30→21:43)
[2017-05-15] MEDS: levETIRAcetam 500 MG TABLET (FP) PO SCH ×2 (10:30→21:43)
[2017-05-15] MEDS: PRENATAL VITAMINS W/ FOLIC ACID TABLET (FP) PO SCH (10:30)
[2017-05-15] MEDS: ESCITALOPRAM OXALATE 10 MG TABLET (FP) PO SCH (10:30)
[2017-05-15] MEDS: HYDROCORTISONE 0.5% TOPICAL OINTMENT TUBE TP PRN (10:31)
[2017-05-15] MEDS: NICOTINE 21 MG/24 HOURS TOPICAL PATCH TD SCH (10:31)
[2017-05-15] MEDS: FLUTICASONE PROP 0.05% 16 GM NASAL SPRAY NS SCH (10:32)
[2017-05-15] MEDS: NICOTINE POLACRILEX 4 MG GUM BUC PRN ×3 (10:32→20:11)
[2017-05-15] MEDS: MAGNESIUM HYDROX 2400MG/30ML ORAL SUSPENSION 30 ML CUP PO PRN (15:56)
[2017-05-15] MEDS: MIRTAZAPINE 15 MG TABLET (FP) PO SCH (21:43)
[2017-05-15] MEDS: QUEtiapine FUMARATE 300 MG TABLET PO SCH (21:43)
[2017-05-15] MEDS: THIAMINE HCL 100 MG TABLET (FP) PO SCH (21:43)
[2017-05-15] MEDS: SUVOREXANT 10 MG TABLET PO PRN (21:45)
[2017-05-16] MEDS: ACETAMINOPHEN 325 MG TABLET (FP) PO PRN ×2 (05:21→21:49)
[2017-05-16] MEDS ORDERED: METHADONE HCL 10 MG TABLET ONE (05:51)
[2017-05-16] MEDS ORDERED: METHADONE HCL 40 MG DISPERSABLE TABLET ONE (05:51)
[2017-05-16] MEDS: DOCUSATE SODIUM 100 MG CAPSULE (FP) PO SCH ×3 (06:08→21:50)
[2017-05-16] MEDS: METHADONE 160 MG, METHADONE 20 MG PO SCH (06:08)
[2017-05-16] MEDS: hydrOXYzine PAMOATE 50 MG CAPSULE (FP) PO PRN ×3 (06:09→17:02)
[2017-05-16] MEDS: NICOTINE POLACRILEX 4 MG GUM BUC PRN ×4 (07:12→17:03)
[2017-05-16] MEDS ORDERED: PT OWN MED DRAWER 7, Y5N ONE (09:03)
[2017-05-16] MEDS: RANITIDINE HCL 150 MG TABLET (FP) PO SCH ×2 (10:17→21:50)
[2017-05-16] MEDS: FLUTICASONE PROP 0.05% 16 GM NASAL SPRAY NS SCH (10:17)
[2017-05-16] MEDS: PRENATAL VITAMINS W/ FOLIC ACID TABLET (FP) PO SCH (10:17)
[2017-05-16] MEDS: levETIRAcetam 500 MG TABLET (FP) PO SCH ×2 (10:17→21:50)
[2017-05-16] MEDS: BUDESONIDE/FORMETEROL FUMARATE 160/4.5 mcg INHALER IH SCH ×2 (10:18→21:51)
[2017-05-16] MEDS: NICOTINE 21 MG/24 HOURS TOPICAL PATCH TD SCH (10:18)
[2017-05-16] MEDS: ESCITALOPRAM OXALATE 10 MG TABLET (FP) PO SCH (10:19)
[2017-05-16] MEDS: SUVOREXANT 10 MG TABLET PO SCH (21:49)
[2017-05-16] MEDS: THIAMINE HCL 100 MG TABLET (FP) PO SCH (21:49)
[2017-05-16] MEDS: QUEtiapine FUMARATE 300 MG TABLET PO SCH (21:50)
[2017-05-16] MEDS: MIRTAZAPINE 15 MG TABLET (FP) PO SCH (21:50)
[2017-05-17] MEDS: NICOTINE POLACRILEX 4 MG GUM BUC PRN ×4 (05:40→17:05)
[2017-05-17] MEDS: ACETAMINOPHEN 325 MG TABLET (FP) PO PRN ×2 (05:40→13:56)
[2017-05-17] MEDS ORDERED: METHADONE HCL 10 MG TABLET ONE (05:54)
[2017-05-17] MEDS ORDERED: METHADONE HCL 40 MG DISPERSABLE TABLET ONE (05:54)
[2017-05-17] MEDS: METHADONE 160 MG, METHADONE 20 MG PO SCH (06:13)
[2017-05-17] MEDS: DOCUSATE SODIUM 100 MG CAPSULE (FP) PO SCH ×3 (06:14→21:31)
[2017-05-17] MEDS: hydrOXYzine PAMOATE 50 MG CAPSULE (FP) PO PRN ×3 (06:15→21:31)
[2017-05-17] MEDS: PRENATAL VITAMINS W/ FOLIC ACID TABLET (FP) PO SCH (10:17)
[2017-05-17] MEDS: ESCITALOPRAM OXALATE 10 MG TABLET (FP) PO SCH (10:17)
[2017-05-17] MEDS: levETIRAcetam 500 MG TABLET (FP) PO SCH ×2 (10:18→21:31)
[2017-05-17] MEDS: NICOTINE 21 MG/24 HOURS TOPICAL PATCH TD SCH (10:18)
[2017-05-17] MEDS: BUDESONIDE/FORMETEROL FUMARATE 160/4.5 mcg INHALER IH SCH ×2 (10:18→21:33)
[2017-05-17] MEDS: RANITIDINE HCL 150 MG TABLET (FP) PO SCH ×2 (10:18→21:31)
[2017-05-17] MEDS: FLUTICASONE PROP 0.05% 16 GM NASAL SPRAY NS SCH (10:18)
[2017-05-17] MEDS ORDERED: PT OWN MED DRAWER 7, Y5N ONE ×2 (10:20→10:51)
[2017-05-17] MEDS: SODIUM CHLORIDE NASAL SPRAY 44 ML BOTTLE NS PRN (10:21)
--- NOTE | 2017-05-17 17:08 | PN ---
Psychiatric Progress Note Vital Signs: Vital Signs Period Temp Pulse Resp BP Sys/Wesley Pulse Ox Last 24 Hr 98.2 F 71 17-18 108/67 Date of Session: 05/17/17 Chief Complaint:: Dishcarge visit Current Medications: Active Medications Generic Name Dose Route Start Last Admin Trade Name Freq PRN Reason Stop Dose Admin Acetaminophen 650 mg 05/03/17 19:17 05/17/17 13:56 Tylenol - PO 650 mg Q4H PRN Administration FEVER Al Hydroxide/Mg Hydroxide 30 ml 05/03/17 19:17 05/09/17 17:37 Mylanta Oral Suspension - PO 30 ml Q6H PRN Administration DYSPEPSIA Albuterol Sulfate 2 puff 05/03/17 19:18 Ventolin Hfa Inhaler - IH Q4H PRN SHORT OF BREATH/WHEEZING Albuterol/Ipratropium 1 amp 05/03/17 19:26 Duoneb - NEB Q6H PRN SHORTNESS OF BREATH Budesonide/Formoterol Fumarate 1 puff 05/03/17 22:00 05/17/17 10:18 Symbicort 160/4.5mcg - IH 1 puff BID SANDY Administration Colloidal Oatmeal 1 applic 05/05/17 12:38 05/13/17 18:28 Aveeno Soap - TP 1 bar DAILY PRN Administration HYGEINE Docusate Sodium 100 mg 05/03/17 22:00 05/17/17 13:57 Colace - PO 100 mg TID SANDY Administration Escitalopram Oxalate 5 mg 05/12/17 14:45 05/17/17 10:17 Lexapro - PO 5 mg DAILY SANDY Administration Eucalyptus/Menthol/Phenol/Sorbitol 1 each 05/03/17 19:17 Cepastat Lozenge - MM Q4H PRN SORE THROAT Fluticasone Propionate 2 spray 05/05/17 13:15 05/17/17 10:18 Flonase - NS Not Given DAILY SANDY Guaifenesin 10 ml 05/03/17 19:17 Robitussin Dm - PO Q6H PRN COUGH Hydrocortisone 1 applic 05/11/17 16:04 05/15/17 10:31 Hytone 0.5% Ointment - TP 1 applic DAILY PRN Administration FOR ITCHING Hydroxyzine Pamoate 50 mg 05/03/17 19:17 05/17/17 13:56 Vistaril - PO 50 mg Q4H PRN Administration AGITATION Ibuprofen 400 mg 05/03/17 19:17 05/14/17 06:07 Motrin - PO 400 mg Q6H PRN Administration Pain level 4-6 Levetiracetam 500 mg 05/03/17 22:00 05/17/17 10:18 Keppra - PO 500 mg BID SANDY Administration Loperamide HCl 4 mg 05/03/17 19:17 Imodium - PO Q6H PRN DIARRHEA Magnesium Citrate 300 ml 05/03/17 19:17 05/06/17 08:46 Citroma - PO 300 ml Q48H PRN Administration CONSTIPATION Magnesium Hydroxide 30 ml 05/03/17 19:17 05/15/17 15:56 Milk Of Magnesia - PO 30 ml DAILY PRN Administration CONSTIPATION Methadone HCl 160 mg/ 180 mg 05/06/17 06:00 05/17/17 06:13 Methadone HCl 20 mg PO 180 mg DAILY@0600 SANDY Administration Mirtazapine 45 mg 05/13/17 22:00 05/16/17 21:50 Remeron - PO 45 mg HS SANDY Administration Nicotine 21 mg 05/04/17 10:00 05/17/17 10:18 Nicoderm Patch - TD 21 mg DAILY SANDY Administration Nicotine Polacrilex 4 mg 05/11/17 07:54 05/17/17 13:57 Nicorette Gum - BUC 4 mg Q2H PRN Administration NICOTINE REPLACEMENT RX Multivit/Folic Acid/Iron 1 tab 05/04/17 10:00 05/17/17 10:17 Vitamins (Sjr) - PO 1 tab DAILY SANDY Administration Pseudoephedrine/Triprolidine 1 combo 05/03/17 19:17 Actifed - PO TID PRN NASAL CONGESTION Quetiapine Fumarate 300 mg 05/05/17 22:00 05/16/17 21:50 Seroquel - PO 300 mg HS SANDY Administration Ranitidine HCl 150 mg 05/05/17 13:15 05/17/17 10:18 Zantac - PO 150 mg BID SANDY Administration Sodium Chloride 2 spray 05/06/17 09:36 05/17/17 10:21 [place] Nasal [place] - NS 2 spray BID PRN Administration NASAL CONGESTION Thiamine HCl 100 mg 05/03/17 22:00 05/16/17 21:49 Vitamin B1 - PO 100 mg HS SANDY Administration Current Side Effect: No Lab tests ordered: No Lab tests reviewed: Yes Provider note:: Patient will complete this program tomorrow 05/18/17.She has met her treatment goals and will continue to address her issues on outpatient basis.Patient reports finding that current medications help to cope with anxiety ,depression,mood instability. Psychiatric Treatment Plan - Problem List (1) Anemia Current Visit: Yes Qualifiers: Anemia type: unspecified type Qualified Code(s): D64.9 - Anemia, unspecified (2) Asthma Current Visit: Yes Qualifiers: Asthma severity: moderate Asthma complication type: uncomplicated (3) Fibromyalgia Current Visit: Yes (4) HTN (hypertension) Current Visit: Yes Qualifiers: Hypertension type: essential hypertension Qualified Code(s): I10 - Essential (primary) hypertension (5) Methadone maintenance therapy patient Current Visit: Yes Comment: on 180 mg Methadone, dose pending verification (6) Cocaine dependence Current Visit: Yes (7) Bipolar II disorder Current Visit: Yes (8) Opioid dependence on agonist therapy Current Visit: Yes
[2017-05-17] MEDS: QUEtiapine FUMARATE 300 MG TABLET PO SCH (21:31)
[2017-05-17] MEDS: MIRTAZAPINE 15 MG TABLET (FP) PO SCH (21:31)
[2017-05-17] MEDS: SUVOREXANT 10 MG TABLET PO SCH (21:31)
[2017-05-17] MEDS: THIAMINE HCL 100 MG TABLET (FP) PO SCH (21:32)
[2017-05-18] MEDS ORDERED: METHADONE HCL 10 MG TABLET ONE (03:22)
[2017-05-18] MEDS ORDERED: METHADONE HCL 40 MG DISPERSABLE TABLET ONE (03:23)
[2017-05-18] MEDS: METHADONE 160 MG, METHADONE 20 MG PO SCH (06:07)
[2017-05-18] MEDS: hydrOXYzine PAMOATE 50 MG CAPSULE (FP) PO PRN (06:08)
[2017-05-18] MEDS: DOCUSATE SODIUM 100 MG CAPSULE (FP) PO SCH (06:08)
[2017-05-18] MEDS: NICOTINE POLACRILEX 4 MG GUM BUC PRN (06:09)
[2017-05-18 06:45] VITALS: BP 117/70; PULSE 80; TEMP 98.1
[2017-05-18] MEDS ORDERED: PT OWN MED DRAWER 7, Y5N ONE (08:51)
[2017-05-18] MEDS: NICOTINE 21 MG/24 HOURS TOPICAL PATCH TD SCH (09:07)
[2017-05-18] MEDS: levETIRAcetam 500 MG TABLET (FP) PO SCH (09:08)
[2017-05-18] MEDS: BUDESONIDE/FORMETEROL FUMARATE 160/4.5 mcg INHALER IH SCH (09:08)
[2017-05-18] MEDS: RANITIDINE HCL 150 MG TABLET (FP) PO SCH (09:08)
[2017-05-18] MEDS: ESCITALOPRAM OXALATE 10 MG TABLET (FP) PO SCH (09:09)
[2017-05-18] MEDS: PRENATAL VITAMINS W/ FOLIC ACID TABLET (FP) PO SCH (09:09)
[2017-05-18] MEDS: ACETAMINOPHEN 325 MG TABLET (FP) PO PRN (09:11)
== END 2017-05-18 09:30 | disposition home or self-care (01) | DRG 772 ==
LOC: YASAS 15:35 → Y3E 18:41
PROVIDERS: ADMIT Psychiatry & Neurology Psychiatry; ATTEND Psychiatry & Neurology Psychiatry
PROC: HZ42ZZZ Group Counseling for Substance Abuse Treatment, Cognitive-Behavioral (ICD-10-PCS; principal; 2017-05-03)
DX: F10.20 Alcohol dependence, uncomplicated (principal); F13.20 Sedative, hypnotic or anxiolytic dependence, uncomplicated; F10.230 Alcohol dependence with withdrawal, uncomplicated; F14.20 Cocaine dependence, uncomplicated; F31.81 Bipolar II disorder; I10 Essential (primary) hypertension; J45.909 Unspecified asthma, uncomplicated; D64.9 Anemia, unspecified; M79.7 Fibromyalgia
CPT/HCPCS: 36415; 80053; 81003; 81015; 85027; 86593; 87389; 93005; 93010

== ENCOUNTER 2018-09-23 15:50 | Inpatient (IN) | payer OTHER ==
--- NOTE | 2018-09-23 21:41 | HP ---
CIWA Score Nausea/Vomitin-No Nausea/No Vomiting Muscle Tremors: None Anxiety: 1-Mildly Anxious Agitation: 1-Slight > Activity Paroxysmal Sweats: No Perspiration Orientation: 1-Uncertain about Date Tacttile Disturbances: 0-None Auditory Disturbances: 0-None Visual Disturbances: 1-Very Mild Sensitivity Headache: 1-Very Mild CIWA-Ar Total Score: 5 - Admission Criteria OASAS Guidelines: Admission for Medically Managed Detox: Requires at least one of the followin. CIWA greater than 12 2. Seizures within the past 24 hours 3. Delirium tremens within the past 24 hours 4. Hallucinations within the past 24 hours 5. Acute intervention needed for co occurring medical disorder 6. Acute intervention needed for co occurring psychiatric disorder 7. Severe withdrawal that cannot be handled at a lower level of care (continued vomiting, continued diarrhea, abnormal vital signs) requiring intravenous medication and/or fluids 8. Patient presents the following: Acute intervention needed for co-occurring med or psych disorder Admission Criteria Met: Admission criteria met Admission ROS S - [facility] Chief Complaint: c/o worsening withdrawal sx's. seeking detox Allergies/Adverse Reactions: Allergies Allergy/AdvReac Type Severity Reaction Status Date / Time divalproex sodium Allergy Severe Difficulty Verified 09/23/18 18:56 [From Depakote] Breathing pregabalin [From Lyrica] Allergy Severe Rash Verified 09/23/18 18:56 tramadol Allergy Severe Verified 09/23/18 18:56 History of Present Illness: 43 y.o. female with hx/o alcoholism, opioid and cocaine dependence here for detox. client is self referred. previous admissions noted. [facility] is on [facility] mg daily. ldm today pending verification. she reports she drinking alcohol daily. last drink a few hours ago due to onset of withdrawal sx's. 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 denies any significant period of clean time except when in txment. client reports relapsing approx a 1week later after last admission which was in rehab due to of spouse. deies si/hi/avh. domiciled, welfare, denies legals pmhx- fibromyalgia, trigeminal nerve pain, seizure psych-bipolar, depression, anxiety Exam Limitations: No Limitations - Ebola screening Have you traveled outside of the country in the last 21 days: No Have you had contact with anyone from an Ebola affected area: No Have you been sick,other than usual withdrawal symptoms: No Do you have a fever: No - Review of Systems Constitutional: Chills, Loss of Appetite, Malaise, Night Sweats, Changes in sleep EENT: reports: No Symptoms Reported Respiratory: reports: No Symptoms reported Cardiac: reports: No Symptoms Reported GI: reports: Poor Appetite : reports: No Symptoms Reported Musculoskeletal: reports: Joint Pain Integumentary: reports: Flushing Neuro: reports: Headache, Seizure (hx/o) Endocrine: reports: No Symptoms Reported Hematology: reports: Anemia Psychiatric: reports: Orientated x3, Agitated (irritable), Depressed (denies si/ hi) Other Systems: Reviewed and Negative Patient History - Patient Medical History Hx Anemia: Yes Hx Asthma: Yes Hx Chronic Obstructive Pulmonary Disease (COPD): No Hx Cancer: No Hx Cardiac Disorders: No Hx Congestive Heart Failure: No Hx Hypertension: No Hx Hypercholesterolemia: No Hx Pacemaker: No HX Cerebrovascular Accident: No Hx Seizures: Yes (ON SEIZURE MEDICATION) Hx Dementia: No Hx Diabetes: No Hx Gastrointestinal Disorders: No Hx Liver Disease: Yes (Hep C ) Hx Genitourinary Disorders: No Hx Sexually Transmitted Disorders: No Hx Renal Disease (ESRD): No Hx Thyroid Disease: No Hx Human Immunodeficiency Virus (HIV): No Hx Hepatitis C: No Hx Depression: Yes Hx Suicide Attempt: Yes (X2 CUTTING WRIST) Hx Bipolar Disorder: Yes Hx Schizophrenia: No Other Medical History: trigeminal nerve pain, - Patient Surgical History Past Surgical History: Yes Hx Neurologic Surgery: No Hx Cataract Extraction: No Hx Cardiac Surgery: No Hx Lung Surgery: No Hx Breast Surgery: No Hx Breast Biopsy: No Hx Abdominal Surgery: No Hx Appendectomy: No Hx Cholecystectomy: No Hx Genitourinary Surgery: No Hx Section: No Hx Orthopedic Surgery: No Hx Hysterectomy: No Other Surgical History: Pt had sx for a pilonidal cyst. Anesthesia Reaction: No - PPD History Previous Implant?: Yes Documented Results: Negative w/proof Implanted On Prior [facility] Admission?: Yes Date: 05/05/17 Results: 0mm PPD to be Administered?: Yes - Reproductive History Patient is a Female of Child Bearing Age (11 -55 yrs old): Yes Last Menstrual Period: 04/26/17 (irreg does not recall last lmp) LMP comment: depo Patient : Yes (neg [facility]) - Smoking Cessation Smoking history: Current every day smoker Have you smoked in the past 12 months: Yes Aproximately how many cigarettes per day: 20 Cigars Per Day: 0 Hx Chewing Tobacco Use: No Initiated information on smoking cessation: Yes 'Breaking Loose' booklet given: 09/23/18 - Substance & Tx. History Hx Alcohol Use: Yes Hx Substance Use: Yes Substance Use Type: Alcohol, Cocaine, Prescribed (mmtp) Hx Substance Use Treatment: Yes ([facility]) - Substances abused Cocaine Substance route: Smoking Frequency: Daily Amount used: 5 bags Age of first use: 41 Date of last use: 09/23/18 Alcohol Substance route: Oral Frequency: Daily Amount used: 1pint of vodka Age of first use: 40 Date of last use: 09/23/18 Family Disease History - Family Disease History Family Disease History: Diabetes: Mother (HTN), CA: Grandparent (GFATHER- ), Other: Father (HTN,LIVER CIRRHOSIS,DEPRESSION,DRUG ADDICTION- ), Mother Admission Physical Exam [facility] - Vital Signs Vital Signs: Vital Signs - 24 hr 09/23/18 18:55 Temperature 97.7 F Pulse Rate 66 Respiratory 16 Rate Blood Pressure 132/77 - Physical General Appearance: Yes: Mild Distress, Irritable, Anxious HEENTM: Yes: EOMI, Normocephalic, Normal Voice, ALICE, Pharynx Normal, Other ( dry mucus membranes) Respiratory: Yes: Chest Non-Tender, Lungs Clear, Normal Breath Sounds, No Respiratory Distress, No Accessory Muscle Use Neck: Yes: No masses,lesions,Nodules, Supple, Trachea in good position Breast: Yes: Breast Exam Deferred Cardiology: Yes: Regular Rhythm, Regular Rate, S1, S2 Abdominal: Yes: Non Tender, Soft, Increased Bowel Sounds Genitourinary: Yes: Within Normal Limits Back: Yes: Normal Inspection Musculoskeletal: Yes: full range of Motion, Gait Steady Extremities: Yes: Normal Capillary Refill, Normal Range of Motion, Non-Tender Neurological: Yes: Fully Oriented, Alert, Motor Strength 5/5, Depressed Affect Integumentary: Yes: Dry, Cold, Other (scattered bruising to ble) Lymphatic: Yes: Within Normal Limits - Diagnostic (1) Difficulty sleeping Current Visit: No Status: Acute (2) Asthma Current Visit: No Status: Chronic Qualifiers: Asthma severity: moderate Asthma complication type: uncomplicated (3) Bipolar II disorder Current Visit: No Status: Chronic (4) Cocaine dependence, uncomplicated Current Visit: No Status: Chronic (5) Fibromyalgia Current Visit: No Status: Chronic (6) HTN (hypertension) Current Visit: No Status: Chronic Qualifiers: Hypertension type: essential hypertension Qualified Code(s): I10 - Essential (primary) hypertension (7) History of anemia Current Visit: No Status: Chronic (8) Methadone maintenance therapy patient Current Visit: No Status: Chronic Comment: on 180 mg Methadone, dose pending verification (9) Nicotine dependence Current Visit: No Status: Chronic Qualifiers: Nicotine product type: cigarettes Substance use status: uncomplicated Qualified Code(s): F17.210 - Nicotine dependence, cigarettes, uncomplicated (10) Trigeminal neuralgia Current Visit: No Status: Chronic (11) At risk for dehydration due to poor fluid intake Current Visit: Yes Status: Acute (12) Dry mucous membranes Current Visit: Yes Status: Acute Cleared for Admission S - Detox or Rehab [facility] Level of Care: Medically Managed Detox Regimen/Protocol: Librium Claeared for Rehab Admission: No Breathalyzer - Breathalyzer Breathalyzer: 0 Urine Drug Screen - Test Device Lot number: [id number] Expiration date: 06/29/19 - Control Is test valid?: Yes - Results Drug screen NEGATIVE: No (TCA) Urine drug screen results: EMILIO-Cocaine, MOP-Opiates, MTD-Methadone Inpatient Rehab Admission - Rehab Decision to Admit Inpatient rehab admission?: No
[2018-09-23] MEDS ORDERED: MAGNESIUM HYDROX 2400MG/30ML ORAL SUSPENSION 30 ML CUP PO PRN (21:47)
[2018-09-23] MEDS ORDERED: BISMUTH SUBSALICYLATE 524 MG/30 ML UD PO PRN (21:47)
[2018-09-23] MEDS ORDERED: DICYCLOMINE HCL 10 MG CAPSULE PO PRN (21:47)
[2018-09-23] MEDS ORDERED: chlordiazePOXIDE HCL 25 MG CAPSULE PO PRN (21:47)
[2018-09-23] MEDS ORDERED: guaiFENesin 200 MG/10 ML 10 ML UNIT-DOSE CUPS PO PRN (21:47)
[2018-09-23] MEDS ORDERED: MENTHOL/PHENOL 1 EACH UD MM PRN (21:47)
[2018-09-23] MEDS ORDERED: MAGNESIUM CITRATE 300 ML BOTTLE PO PRN (21:47)
[2018-09-23] MEDS ORDERED: ONDANSETRON *ODT* 4 MG TABLET SL PRN (21:47)
[2018-09-23] MEDS ORDERED: ACETAMINOPHEN 325 MG TABLET (FP) PO PRN (21:47)
[2018-09-23] MEDS ORDERED: ALBUTEROL SO4 2.5/IPRATROPIUM 0.5 INH SOL 3 ML VIAL.NEB. NEB PRN (21:50)
[2018-09-23] MEDS: MELATONIN 5 MG TABLETS PO PRN (22:55)
[2018-09-23] MEDS: levETIRAcetam 500 MG TABLET (FP) PO SCH (22:55)
[2018-09-23] MEDS: THIAMINE HCL 100 MG TABLET (FP) PO SCH (22:56)
[2018-09-23] MEDS: chlordiazePOXIDE HCL 25 MG CAPSULE PO SCH (22:56)
[2018-09-23] MEDS: BUDESONIDE/FORMETEROL FUMARATE 160/4.5 mcg INHALER IH SCH (23:02)
[2018-09-23] MEDS: hydrOXYzine PAMOATE 25 MG CAPSULE (FP) PO PRN (23:06)
[2018-09-23] MEDS: ALBUTEROL SO4 8 GM HFA INHALER IH PRN (23:06)
[2018-09-24] MEDS: chlordiazePOXIDE HCL 25 MG CAPSULE PO SCH ×4 (05:50→22:12)
[2018-09-24] MEDS: levETIRAcetam 500 MG TABLET (FP) PO SCH ×2 (10:07→22:13)
[2018-09-24] MEDS: NICOTINE 21 MG/24 HOURS TOPICAL PATCH TD SCH (10:07)
[2018-09-24] MEDS: PRENATAL VITAMINS W/ FOLIC ACID TABLET (FP) PO SCH (10:07)
[2018-09-24] MEDS: BUDESONIDE/FORMETEROL FUMARATE 160/4.5 mcg INHALER IH SCH ×2 (10:07→23:49)
[2018-09-24 10:49] LABS: URINE APPEARANCE TURBID; URINE BILIRUBIN NEGATIVE (NEGATIVE); URINE COLOR DK YELLOW; URINE GLUCOSE (UA) NEGATIVE (NEGATIVE); URINE KETONE NEGATIVE (NEGATIVE); URINE LEUK ESTERASE NEGATIVE (NEGATIVE); URINE NITRITE NEGATIVE (NEGATIVE); URINE PROTEIN TRACE (NEGATIVE); URINE UROBILINOGEN 0.2 mg/dL (0.2-1.0)
[2018-09-24] MEDS ORDERED: METHADONE HCL 10 MG TABLET PO ONE (12:13)
--- NOTE | 2018-09-24 12:19 | PN ---
[facility] Progress Note Note: As per RN, unable to verify methadone dose 190mg po daily as [facility] at [facility] via [phone]. Methadone 20mg po once ordered and nursing staff will verify 09/25/18. Explained to pt and pt agreed to wait for her dose to be verified tomorrow.
--- NOTE | 2018-09-24 12:52 | PN ---
S CIWA - CIWA Score Nausea/Vomitin-No Nausea/No Vomiting Muscle Tremors: 2 Anxiety: 3 Agitation: 0-Normal Activity Paroxysmal Sweats: 3 Orientation: 0-Oriented Tacttile Disturbances: 0-None Auditory Disturbances: 0-None Visual Disturbances: 0-None Headache: 2-Mild CIWA-Ar Total Score: 10 [facility] Progress Note (SOAP) Subjective: c/o sweats, anxiety, headache, and shakes. Objective: 09/24/18 12:51 Vital Signs 09/24/18 09/24/18 06:00 09:38 Temperature 98.1 F 97.9 F Pulse Rate 56 L 66 Respiratory 18 18 Rate Blood Pressure 102/67 137/73 Labs pending. Assessment: AOX3, in no respiratory distress. Full ROM, ambulating in the unit. Withdrawal symptoms. Plan: continue detox.
[2018-09-24 13:08] LABS: HEMATOCRIT 32.3 % (32.4-45.2); HEMOGLOBIN 10.9 GM/dL (10.7-15.3); MCH 31.5 pg (25.7-33.7); MCHC 33.7 g/dl (32.0-36.0); MEAN CELL VOLUME 93.4 fl (80-96); MEAN PLT VOLUME 8.8 fl (7.5-11.1); PLATELET COUNT 236 K/MM3 (134-434); RBC 3.46 M/mm3 (3.60-5.2); RDW 14.6 % (11.6-15.6); WHITE BLOOD COUNT 4.7 K/mm3 (4.0-10.0)
[2018-09-24 13:15] LABS: ALBUMIN 3.5 g/dl (3.4-5.0); BILIRUBIN,TOTAL 0.3 mg/dL (0.2-1); BLOOD UREA NITROGEN 11.5 mg/dL (7-18); CREATININE 0.8 mg/dL (0.55-1.3); POTASSIUM 3.9 mmol/L (3.5-5.1); TOT PROT 6.9 g/dl (6.4-8.2)
[2018-09-24] MEDS: P-EPHED 60MG/TRIPROLIDI 2.5MG TABLET PO PRN (13:48)
[2018-09-24] MEDS: METHOCARBAMOL 500 MG TABLET PO PRN (13:49)
[2018-09-24] MEDS: IBUPROFEN 400 MG TABLET (FP) PO PRN (17:33)
[2018-09-24] MEDS: NICOTINE POLACRILEX 2 MG GUM BUC PRN ×2 (17:36→22:14)
--- NOTE | 2018-09-24 17:47 | CONSULT ---
[facility] Psychiatric Consult - Data Date of interview: 09/24/18 Admission source: [facility] Identifying data: Readmission to [facility] for this 43 y/o female self- referred for detoxification (cocaine, alcohol). Interviewed at [address] [place] [address]. Patient is single, a mother of two, domiciled, unemployed and supported by relatives. Substance Abuse History: Confirmed by patient in this interview. Details in current [facility] report as follows : Smoking history: Current every day smoker. Have you smoked in the past 12 months: Yes. Aproximately how many cigarettes per day: 20. Cigars Per Day: 0. Hx Chewing Tobacco Use: No. Initiated information on smoking cessation: Yes. 'Breaking Loose' booklet given: . - Substance & Tx. History. Hx Alcohol Use: Yes. Hx Substance Use: Yes. Substance Use Type: Alcohol, Cocaine, Prescribed (mmtp). Hx Substance Use Treatment: Yes ([facility]). - Substances abused. Cocaine. Substance route: Smoking. Frequency: Daily. Amount used: 5 bags. Age of first use: 41. Date of last use: 09/23/18. Alcohol. Substance route: Oral. Frequency: Daily. Amount used: 1pint of vodka. Age of first use: 40. Date of last use: 09/23/18 Medical History: Remarkable for a history of anenia, bronchial asthma, hypertension, fibromyalgia, antecedent of surgery for excision of pilonidal cyst and a history of withdrawal-related seizures. Psychiatric History: Patient endorses a history of 2-3 psychiatric hospitalizations ([facility], [facility]). Reportedly diagnosed with Bipolar Disorder. Ms Hylton is currently seeing a private psychiatrist, Dr Adamson in [facility], for medication management (remeron 45 mg/hs + seroquel 300 mg/bid + klonopin 2 mg/tid + gabapentin 600 mg/tid). Confirmed by refills of 09/02 + 09/19/18 at [facility]. Patient admits to three suicde attempts (self-mutilation). Physical/Sexual Abuse/Trauma History: Patient denies. Additional Comment: Urine drug screen results: EMILIO-Cocaine, MOP-Opiates, MTD- Methadone. Noted. Mental Status Exam - Mental Status Exam Alert and Oriented to: Time, Place, Person Cognitive Function: Good Patient Appearance: Well Groomed (overweight) Mood: Nervous, Anxious Affect: Mood Congruent Patient Behavior: Fatigued, Appropriate, Cooperative Speech Pattern: Clear, Appropriate Voice Loudness: Normal Thought Process: Goal Oriented Thought Disorder: Not Present Hallucinations: Denies Suicidal Ideation: Denies Homicidal Ideation: Denies Insight/Judgement: Poor Sleep: Poorly, Difficulty falling asleep Appetite: Good Gait/Station: Normal Psychiatric Findings - Problem List ([facility] 1, 2,3) (1) Alcohol dependence Current Visit: Yes Status: Chronic (2) Cocaine dependence Current Visit: Yes Status: Chronic (3) Nicotine dependence Current Visit: Yes Status: Chronic Qualifiers: Nicotine product type: cigarettes Substance use status: uncomplicated Qualified Code(s): F17.210 - Nicotine dependence, cigarettes, uncomplicated (4) Bipolar II disorder Current Visit: Yes Status: Chronic Comment: As per self-report. (5) Insomnia Current Visit: Yes Status: Chronic - Initial Treatment Plan Initial Treatment Plan: Psychoeducation. Sleep hygiene. Detoxification. Resumed : seroquel 300 mg po hs (reduced for prevention of oversedation) + remeron 15 mg po hs (also reduced to reduced potential for hypotension). Patient is made aware. Side effects/benefits discussed. Patient gave verbal consent to MD. MARROQUIN meetings. Observation.
[2018-09-24] MEDS: THIAMINE HCL 100 MG TABLET (FP) PO SCH (22:13)
[2018-09-24] MEDS: QUEtiapine FUMARATE 300 MG TABLET PO SCH (22:13)
[2018-09-24] MEDS: MIRTAZAPINE 15 MG TABLET (FP) PO SCH (22:13)
[2018-09-24] MEDS: ALBUTEROL SO4 8 GM HFA INHALER IH PRN (22:15)
[2018-09-25] MEDS: ACETAMINOPHEN 325 MG TABLET (FP) PO PRN (04:48)
[2018-09-25] MEDS: P-EPHED 60MG/TRIPROLIDI 2.5MG TABLET PO PRN ×2 (04:49→14:30)
[2018-09-25] MEDS: chlordiazePOXIDE HCL 25 MG CAPSULE PO SCH ×4 (05:40→22:19)
[2018-09-25] MEDS: NICOTINE POLACRILEX 2 MG GUM BUC PRN ×4 (05:43→22:21)
[2018-09-25] MEDS ORDERED: METHADONE HCL 10 MG TABLET PO ONE (08:52)
[2018-09-25] MEDS: PRENATAL VITAMINS W/ FOLIC ACID TABLET (FP) PO SCH (10:18)
[2018-09-25] MEDS: levETIRAcetam 500 MG TABLET (FP) PO SCH ×2 (10:18→22:19)
[2018-09-25] MEDS: BUDESONIDE/FORMETEROL FUMARATE 160/4.5 mcg INHALER IH SCH ×2 (10:18→22:18)
[2018-09-25] MEDS: NICOTINE 21 MG/24 HOURS TOPICAL PATCH TD SCH (10:18)
[2018-09-25] MEDS: hydrOXYzine PAMOATE 25 MG CAPSULE (FP) PO PRN (10:18)
[2018-09-25] MEDS: METHOCARBAMOL 500 MG TABLET PO PRN ×2 (10:19→17:04)
[2018-09-25] MEDS: MAG HYDROX/AL HYDROX/SIMETH 30 ML UNIT-DOSE CUP PO PRN (12:21)
--- NOTE | 2018-09-25 16:32 | PN ---
[facility] Progress Note (SOAP) Subjective: Headache, nausea, interrupted sleep Objective: 09/25/18 16:31 Last Vital Signs Temp Pulse Resp BP Pulse Ox 98.2 F 66 18 112/69 09/25/18 13:45 09/25/18 13:45 09/25/18 13:45 09/25/18 13:45 Laboratory Tests 09/24/18 09/24/18 09/24/18 08:50 10:40 10:40 WBC 4.7 RBC 3.46 L Hgb 10.9 Hct 32.3 L MCV 93.4 MCH 31.5 MCHC 33.7 RDW 14.6 Plt Count 236 MPV 8.8 Sodium 140 Potassium 3.9 Chloride 109 H Carbon Dioxide 25 Anion Gap 5 L BUN 11.5 Creatinine 0.8 Est GFR (CKD-EPI)AfAm 106.13 Est GFR (CKD-EPI)NonAf 91.57 Random Glucose 110 H Calcium 9.0 Total Bilirubin 0.3 AST 20 ALT 41 Alkaline Phosphatase 51 Total Protein 6.9 Albumin 3.5 Urine Color Dk yellow Urine Appearance Turbid Urine pH 5.0 Ur Specific [place] 1.044 H Urine Protein Trace Urine Glucose (UA) Negative Urine Ketones Negative Urine Blood Negative Urine Nitrite Negative Urine Bilirubin Negative Urine Urobilinogen 0.2 Ur Leukocyte Esterase Negative RPR Titer 09/24/18 10:40 WBC RBC Hgb Hct MCV MCH MCHC RDW Plt Count MPV Sodium Potassium Chloride Carbon Dioxide Anion Gap BUN Creatinine Est GFR (CKD-EPI)AfAm Est GFR (CKD-EPI)NonAf Random Glucose Calcium Total Bilirubin AST ALT Alkaline Phosphatase Total Protein Albumin Urine Color Urine Appearance Urine pH Ur Specific [place] Urine Protein Urine Glucose (UA) Urine Ketones Urine Blood Urine Nitrite Urine Bilirubin Urine Urobilinogen Ur Leukocyte Esterase RPR Titer Nonreactive Labs reviewed Assessment: 09/25/18 16:32 Withdrawal sxs Plan: Continue detox Encouraged PO water hydration
[2018-09-25] MEDS: MIRTAZAPINE 15 MG TABLET (FP) PO SCH (22:18)
[2018-09-25] MEDS: THIAMINE HCL 100 MG TABLET (FP) PO SCH (22:19)
[2018-09-25] MEDS: QUEtiapine FUMARATE 300 MG TABLET PO SCH (22:19)
[2018-09-26] MEDS ORDERED: chlordiazePOXIDE HCL 10 MG CAPSULE PO PRN
[2018-09-26] MEDS: hydrOXYzine PAMOATE 25 MG CAPSULE (FP) PO PRN (01:27)
[2018-09-26] MEDS: METHOCARBAMOL 500 MG TABLET PO PRN ×2 (01:27→15:06)
[2018-09-26] MEDS: IBUPROFEN 400 MG TABLET (FP) PO PRN (01:28)
[2018-09-26] MEDS: NICOTINE POLACRILEX 2 MG GUM BUC PRN ×6 (01:29→22:27)
[2018-09-26] MEDS: P-EPHED 60MG/TRIPROLIDI 2.5MG TABLET PO PRN (01:29)
[2018-09-26] MEDS: chlordiazePOXIDE HCL 10 MG CAPSULE PO SCH ×4 (05:28→22:24)
[2018-09-26] MEDS: ACETAMINOPHEN 325 MG TABLET (FP) PO PRN (05:28)
[2018-09-26] MEDS ORDERED: METHADONE HCL 10 MG TABLET PO ONE (08:24)
[2018-09-26] MEDS ORDERED: METHADONE 160 MG, METHADONE 30 MG PO ONE (08:45)
[2018-09-26] MEDS ORDERED: METHADONE HCL 10 MG TABLET ONE (08:57)
[2018-09-26] MEDS ORDERED: METHADONE HCL 40 MG DISPERSABLE TABLET ONE (08:58)
[2018-09-26] MEDS: NICOTINE 21 MG/24 HOURS TOPICAL PATCH TD SCH (09:02)
[2018-09-26] MEDS: levETIRAcetam 500 MG TABLET (FP) PO SCH ×2 (09:02→22:25)
[2018-09-26] MEDS: PRENATAL VITAMINS W/ FOLIC ACID TABLET (FP) PO SCH (09:03)
[2018-09-26] MEDS: MAG HYDROX/AL HYDROX/SIMETH 30 ML UNIT-DOSE CUP PO PRN ×2 (09:04→15:05)
[2018-09-26] MEDS: BUDESONIDE/FORMETEROL FUMARATE 160/4.5 mcg INHALER IH SCH ×2 (10:34→22:26)
[2018-09-26] MEDS: RANITIDINE HCL 150 MG TABLET (FP) PO SCH ×2 (12:09→22:23)
[2018-09-26] MEDS ORDERED: GABAPENTIN 100 MG CAPSULE (FP) PO SCH (14:00)
--- NOTE | 2018-09-26 14:27 | PN ---
[facility] CIWA - CIWA Score Nausea/Vomitin-No Nausea/No Vomiting Muscle Tremors: 2 Anxiety: 2 Agitation: 2 Paroxysmal Sweats: 2 Orientation: 0-Oriented Tacttile Disturbances: 0-None Auditory Disturbances: 0-None Visual Disturbances: 0-None Headache: 0-None Present CIWA-Ar Total Score: 8 [facility] Progress Note (SOAP) Subjective: acid reflux interrupted sleep body aches nerve pain face and joints Objective: 09/26/18 14:28 Vital Signs Temperature 97.7 F 09/26/18 13:30 Pulse Rate 76 09/26/18 13:30 Respiratory Rate 20 09/26/18 13:30 Blood Pressure 105/60 09/26/18 13:30 O2 Sat by Pulse Oximetry (%) aaox3 ambulating no acute distress Assessment: 09/26/18 14:28 withdrawal sx Plan: continue detox increase fluids zantac 150mg bid gabapentin 100mg tid and pt has an order for gabapentin for 600mg and it was confirmed with her outside pharmacy. pt will continue with 100mg tid dose while under our care. pt agreed.
[2018-09-26] MEDS: SODIUM CHLORIDE NASAL SPRAY 44 ML BOTTLE NS PRN (16:29)
[2018-09-26] MEDS: MIRTAZAPINE 15 MG TABLET (FP) PO SCH (22:23)
[2018-09-26] MEDS: GABAPENTIN 100 MG CAPSULE (FP) PO SCH (22:25)
[2018-09-26] MEDS: QUEtiapine FUMARATE 300 MG TABLET PO SCH (22:25)
[2018-09-26] MEDS: THIAMINE HCL 100 MG TABLET (FP) PO SCH (22:25)
[2018-09-26] MEDS: MELATONIN 5 MG TABLETS PO PRN (22:26)
[2018-09-26] MEDS: ALBUTEROL SO4 8 GM HFA INHALER IH PRN (22:26)
[2018-09-27] MEDS ORDERED: METHADONE HCL 10 MG TABLET ONE (05:23)
[2018-09-27] MEDS ORDERED: METHADONE HCL 40 MG DISPERSABLE TABLET ONE (05:23)
[2018-09-27] MEDS ORDERED: METHADONE HCL 40 MG DISPERSABLE TABLET PO SCH (06:00)
[2018-09-27] MEDS: GABAPENTIN 100 MG CAPSULE (FP) PO SCH ×3 (06:01→22:09)
[2018-09-27] MEDS: METHADONE 160 MG, METHADONE 30 MG PO SCH (06:01)
[2018-09-27] MEDS: chlordiazePOXIDE HCL 10 MG CAPSULE PO SCH ×2 (06:02→17:46)
[2018-09-27] MEDS: NICOTINE POLACRILEX 2 MG GUM BUC PRN ×4 (06:02→22:11)
[2018-09-27] MEDS: levETIRAcetam 500 MG TABLET (FP) PO SCH ×2 (10:28→22:10)
[2018-09-27] MEDS: PRENATAL VITAMINS W/ FOLIC ACID TABLET (FP) PO SCH (10:28)
[2018-09-27] MEDS: RANITIDINE HCL 150 MG TABLET (FP) PO SCH ×2 (10:28→22:09)
[2018-09-27] MEDS: NICOTINE 21 MG/24 HOURS TOPICAL PATCH TD SCH (10:29)
[2018-09-27] MEDS: BUDESONIDE/FORMETEROL FUMARATE 160/4.5 mcg INHALER IH SCH ×2 (10:29→22:10)
[2018-09-27] MEDS: P-EPHED 60MG/TRIPROLIDI 2.5MG TABLET PO PRN ×2 (10:30→17:46)
[2018-09-27] MEDS: SODIUM CHLORIDE NASAL SPRAY 44 ML BOTTLE NS PRN (10:30)
--- NOTE | 2018-09-27 11:32 | PN ---
S CIWA - CIWA Score Nausea/Vomitin-No Nausea/No Vomiting Muscle Tremors: 2 Anxiety: 1-Mildly Anxious Agitation: 1-Slight > Activity Paroxysmal Sweats: 1-Minimal Palms Moist Orientation: 0-Oriented Tacttile Disturbances: 0-None Auditory Disturbances: 0-None Visual Disturbances: 0-None Headache: 0-None Present CIWA-Ar Total Score: 5 [facility] Progress Note (SOAP) Subjective: acid reflux Objective: 09/27/18 11:31 Vital Signs Temperature 99.0 F 09/27/18 09:23 Pulse Rate 76 09/27/18 09:23 Respiratory Rate 18 09/27/18 09:23 Blood Pressure 105/60 09/27/18 09:23 O2 Sat by Pulse Oximetry (%) aaox3 ambulating no acute distress Assessment: 09/27/18 11:31 mild withdrawal sx Plan: continue detox increase fluids d/c in am
[2018-09-27] MEDS ORDERED: POLYETHYLENE GLYCOL 3350 119 GM BTL PO ONE (14:39)
[2018-09-27] MEDS: ACETAMINOPHEN 325 MG TABLET (FP) PO PRN (17:46)
[2018-09-27] MEDS: MELATONIN 5 MG TABLETS PO PRN (22:09)
[2018-09-27] MEDS: MIRTAZAPINE 15 MG TABLET (FP) PO SCH (22:10)
[2018-09-27] MEDS: THIAMINE HCL 100 MG TABLET (FP) PO SCH (22:10)
[2018-09-27] MEDS: QUEtiapine FUMARATE 300 MG TABLET PO SCH (22:11)
[2018-09-27] MEDS: POLYETHYLENE GLYCOL 3350 119 GM BTL PO SCH (22:11)
[2018-09-28] MEDS ORDERED: METHADONE HCL 10 MG TABLET ONE (04:56)
[2018-09-28] MEDS ORDERED: METHADONE HCL 40 MG DISPERSABLE TABLET ONE (04:56)
[2018-09-28] MEDS ORDERED: chlordiazePOXIDE HCL 10 MG CAPSULE PO ONE (05:00)
[2018-09-28] MEDS: METHADONE 160 MG, METHADONE 30 MG PO SCH (06:12)
[2018-09-28] MEDS: GABAPENTIN 100 MG CAPSULE (FP) PO SCH ×2 (06:15→13:30)
[2018-09-28] MEDS: ACETAMINOPHEN 325 MG TABLET (FP) PO PRN (06:15)
[2018-09-28] MEDS: P-EPHED 60MG/TRIPROLIDI 2.5MG TABLET PO PRN ×2 (06:18→12:22)
[2018-09-28] MEDS: MAG HYDROX/AL HYDROX/SIMETH 30 ML UNIT-DOSE CUP PO PRN (08:09)
--- NOTE | 2018-09-28 09:45 | DS ---
[facility] Detox Discharge Summary Admission Date: 09/23/18 Discharge Date: 09/28/18 - History Present History: Alcohol Dependence, Cocaine Dependence, Sedative Dependence - Physical Exam Results Vital Signs: Vital Signs Temperature 98.1 F 09/28/18 09:34 Pulse Rate 85 09/28/18 09:34 Respiratory Rate 16 09/28/18 09:34 Blood Pressure 122/66 09/28/18 09:34 O2 Sat by Pulse Oximetry (%) Pertinent Admission Physical Exam Findings: pt arrived in withdrawals Laboratory Tests 09/24/18 09/24/18 09/24/18 08:50 10:40 10:40 WBC 4.7 RBC 3.46 L Hgb 10.9 Hct 32.3 L MCV 93.4 MCH 31.5 MCHC 33.7 RDW 14.6 Plt Count 236 MPV 8.8 Sodium 140 Potassium 3.9 Chloride 109 H Carbon Dioxide 25 Anion Gap 5 L BUN 11.5 Creatinine 0.8 Est GFR (CKD-EPI)AfAm 106.13 Est GFR (CKD-EPI)NonAf 91.57 Random Glucose 110 H Calcium 9.0 Total Bilirubin 0.3 AST 20 ALT 41 Alkaline Phosphatase 51 Total Protein 6.9 Albumin 3.5 Urine Color Dk yellow Urine Appearance Turbid Urine pH 5.0 Ur Specific [place] 1.044 H Urine Protein Trace Urine Glucose (UA) Negative Urine Ketones Negative Urine Blood Negative Urine Nitrite Negative Urine Bilirubin Negative Urine Urobilinogen 0.2 Ur Leukocyte Esterase Negative RPR Titer 09/24/18 10:40 WBC RBC Hgb Hct MCV MCH MCHC RDW Plt Count MPV Sodium Potassium Chloride Carbon Dioxide Anion Gap BUN Creatinine Est GFR (CKD-EPI)AfAm Est GFR (CKD-EPI)NonAf Random Glucose Calcium Total Bilirubin AST ALT Alkaline Phosphatase Total Protein Albumin Urine Color Urine Appearance Urine pH Ur Specific [place] Urine Protein Urine Glucose (UA) Urine Ketones Urine Blood Urine Nitrite Urine Bilirubin Urine Urobilinogen Ur Leukocyte Esterase RPR Titer Nonreactive today pt is aaox3 ambulating no s/s of withdrawal sx - Treatment Hospital Course: Detox Protocol Followed, Detoxed Safely, Responded well, Discharged Condition Good, Rehab Referral Accepted Patient has Accepted a Rehab Referral to: referral to [facility] rehab - Medication Discharge Medications: Ambulatory Orders Quetiapine Fumarate [Seroquel -] 600 mg PO HS #60 tablet 01/25/16 hydrOXYzine PAMOATE [Vistaril -] 50 mg PO DAILY 05/03/17 Mirtazapine [Remeron -] 45 mg PO HS #30 tablet 05/17/17 Albuterol Sulfate Inhaler - [Ventolin HFA Inhaler -] 2 puff IH Q4H PRN #1 inhaler 05/18/17 Budesonide/Formeterol Fumarate [SYMBICORT 160/4.5mcg -] 1 puff IH BID #1 inhaler 05/18/17 Escitalopram Oxalate [Lexapro -] 5 mg PO DAILY #30 tablet 05/18/17 levETIRAcetam [Keppra -] 500 mg PO BID #60 tablet 05/18/17 Clonazepam [Klonopin] 2 mg PO TID 09/23/18 Quetiapine Fumarate [Seroquel -] 300 mg PO HS #30 tablet 09/23/18 Spiriva Respimat 1 puff PO BID 09/23/18 - Diagnosis (1) Alcohol dependence Current Visit: Yes Status: Chronic Qualifiers: Substance use status: uncomplicated Qualified Code(s): F10.20 - Alcohol dependence, uncomplicated (2) Bipolar II disorder Current Visit: Yes Status: Chronic (3) Cocaine dependence Current Visit: Yes Status: Chronic Qualifiers: Substance use status: uncomplicated Qualified Code(s): F14.20 - Cocaine dependence, uncomplicated (4) Insomnia Current Visit: Yes Status: Chronic (5) Nicotine dependence Current Visit: Yes Status: Chronic Qualifiers: Nicotine product type: cigarettes Substance use status: uncomplicated Qualified Code(s): F17.210 - Nicotine dependence, cigarettes, uncomplicated (6) Opioid dependence on agonist therapy Current Visit: Yes Status: Chronic (7) Constipation Current Visit: No Status: Acute (8) Sedative/hypnotic withdrawal without complication Current Visit: Yes Status: Chronic (9) Asthma Current Visit: No Status: Chronic Qualifiers: Asthma severity: moderate Asthma complication type: uncomplicated (10) Fibromyalgia Current Visit: Yes Status: Chronic (11) HTN (hypertension) Current Visit: Yes Status: Chronic Qualifiers: Hypertension type: essential hypertension Qualified Code(s): I10 - Essential (primary) hypertension (12) Methadone maintenance therapy patient Current Visit: Yes Status: Chronic (13) Psychiatric disorder Current Visit: No Status: Suspected - AMA Did Patient Leave Against Medical Advice: No
[2018-09-28] MEDS: RANITIDINE HCL 150 MG TABLET (FP) PO SCH ×2 (10:13→10:15)
[2018-09-28] MEDS: levETIRAcetam 500 MG TABLET (FP) PO SCH (10:14)
[2018-09-28] MEDS: POLYETHYLENE GLYCOL 3350 119 GM BTL PO SCH (10:14)
[2018-09-28] MEDS: PRENATAL VITAMINS W/ FOLIC ACID TABLET (FP) PO SCH (10:14)
[2018-09-28] MEDS: NICOTINE 21 MG/24 HOURS TOPICAL PATCH TD SCH (10:14)
[2018-09-28] MEDS: BUDESONIDE/FORMETEROL FUMARATE 160/4.5 mcg INHALER IH SCH (10:14)
[2018-09-28] MEDS: METHOCARBAMOL 500 MG TABLET PO PRN (10:15)
[2018-09-28 13:22] VITALS: BP 100/70; PULSE 73; TEMP 97.7
== END 2018-09-28 13:36 | disposition other institution (70) | DRG 773 ==
LOC: YASAS 15:50 → Y6N 22:22
PROVIDERS: ADMIT Surgery; ATTEND Surgery
PROC: HZ2ZZZZ Detoxification Services for Substance Abuse Treatment (ICD-10-PCS; principal; 2018-09-23)
DX: F10.230 Alcohol dependence with withdrawal, uncomplicated (principal); F11.20 Opioid dependence, uncomplicated; F14.20 Cocaine dependence, uncomplicated; F17.210 Nicotine dependence, cigarettes, uncomplicated; F31.81 Bipolar II disorder; F99 Mental disorder, not otherwise specified; G50.0 Trigeminal neuralgia; I10 Essential (primary) hypertension; G47.00 Insomnia, unspecified; K59.00 Constipation, unspecified; J45.909 Unspecified asthma, uncomplicated; M79.7 Fibromyalgia; D64.9 Anemia, unspecified; G40.909 Epilepsy, unspecified, not intractable, without status epilepticus; R63.8 Other symptoms and signs concerning food and fluid intake; R68.2 Dry mouth, unspecified; Z91.5 Personal history of self-harm
CPT/HCPCS: 36415; 80053; 81003; 85027; 86593; Q0162

== ENCOUNTER 2018-09-28 15:13 | Inpatient (IN) | payer OTHER ==
[2018-09-28] MEDS ORDERED: guaiFENesin 200 MG/10 ML 10 ML UNIT-DOSE CUPS PO PRN (15:48)
[2018-09-28] MEDS ORDERED: LOPERAMIDE HCL 2 MG CAPSULE PO PRN (15:48)
--- NOTE | 2018-09-28 15:48 | HP ---
[facility] Rehab Assess/Revision - Admission History Admitted to Rehab from: [facility] - Findings Detox History & Physical reviewed: Yes Concur with findings: Yes Inpatient Rehab Admission - Rehab Decision to Admit Inpatient rehab admission?: Yes - Initial Determination Are CD services needed?: Yes Free of communicable disease: Yes Not in need of hospitalization: Yes - Rehab Admission Criteria Previous failed treatment: Yes Poor recovery environment: Yes Comorbidities: Yes Lacks judgement: Yes Patient is meeting Inpatient Rehab admission criteria:: Yes
[2018-09-28 16:52] VITALS: BMI 27.6
--- NOTE | 2018-09-28 16:55 | CONSULT ---
[facility] Psychiatric Consult - Data Date of interview: 09/28/18 Admission source: Transfer from [address] [place] [address].
--- NOTE | 2018-09-28 19:28 | PN ---
[facility] Progress Note Note: Psychiatry Attending's note : Called by LAWRENCE Bowles to enter medications orders. Ms Hylton is now at [facility]. Patient is already known to this expert medical writer. See my note of 09/24/18. Mild anxiety endorsed by patient. Otherwise mental status is stable. Ms Hylton is asking for clonazepam. Prescribed by her psychiatrist in the community. Will address this issue with medical staff. In the meantime, will resume seroquel 300 mg po hs. Patient is in agreement with this intervention.
[2018-09-28] MEDS: BUDESONIDE/FORMETEROL FUMARATE 160/4.5 mcg INHALER IH SCH (21:34)
[2018-09-28] MEDS: THIAMINE HCL 100 MG TABLET (FP) PO SCH (21:34)
[2018-09-28] MEDS: QUEtiapine FUMARATE 300 MG TABLET PO SCH (21:34)
[2018-09-28] MEDS: levETIRAcetam 500 MG TABLET (FP) PO SCH (21:35)
[2018-09-28] MEDS: MIRTAZAPINE 15 MG TABLET (FP) PO SCH (21:35)
[2018-09-28] MEDS: hydrOXYzine PAMOATE 50 MG CAPSULE (FP) PO PRN (21:36)
[2018-09-28] MEDS: MELATONIN 5 MG TABLETS PO PRN (21:36)
[2018-09-28] MEDS: NICOTINE POLACRILEX 4 MG GUM BUC PRN (21:38)
[2018-09-28] MEDS ORDERED: SPIRIVA RESPIMAT PO SCH (22:00)
[2018-09-28] MEDS ORDERED: SPIRIVA RESPIMAT IH SCH (22:00)
[2018-09-29] MEDS: NICOTINE POLACRILEX 4 MG GUM BUC PRN ×6 (02:56→21:39)
[2018-09-29] MEDS ORDERED: METHADONE HCL 40 MG DISPERSABLE TABLET PO SCH (06:00)
[2018-09-29] MEDS ORDERED: METHADONE HCL 10 MG TABLET ONE (06:04)
[2018-09-29] MEDS ORDERED: METHADONE HCL 40 MG DISPERSABLE TABLET ONE (06:04)
[2018-09-29] MEDS: METHADONE 160 MG, METHADONE 30 MG PO SCH (06:21)
[2018-09-29] MEDS: IBUPROFEN 400 MG TABLET (FP) PO PRN ×2 (06:22→21:36)
[2018-09-29] MEDS: P-EPHED 60MG/TRIPROLIDI 2.5MG TABLET PO PRN ×3 (06:22→21:37)
[2018-09-29] MEDS: hydrOXYzine PAMOATE 50 MG CAPSULE (FP) PO PRN ×4 (06:22→21:36)
[2018-09-29] MEDS ORDERED: PT OWN MED DRAWER 7, Y5N ONE ×2 (08:31→20:36)
[2018-09-29] MEDS: levETIRAcetam 500 MG TABLET (FP) PO SCH ×2 (09:44→21:32)
[2018-09-29] MEDS: NICOTINE 21 MG/24 HOURS TOPICAL PATCH TD SCH (09:44)
[2018-09-29] MEDS: PRENATAL VITAMINS W/ FOLIC ACID TABLET (FP) PO SCH (09:44)
[2018-09-29] MEDS: TIOTROPIUM BROMIDE 2.5 MCG (SPIRIVA) RESPIMAT INHALER IH SCH (09:45)
[2018-09-29] MEDS: BUDESONIDE/FORMETEROL FUMARATE 160/4.5 mcg INHALER IH SCH ×2 (09:45→21:33)
[2018-09-29] MEDS: MAG HYDROX/AL HYDROX/SIMETH 30 ML UNIT-DOSE CUP PO PRN (09:48)
[2018-09-29] MEDS ORDERED: ESCITALOPRAM OXALATE 10 MG TABLET (FP) PO SCH (10:00)
[2018-09-29] MEDS: GABAPENTIN 300 MG CAPSULE (FP) PO SCH ×2 (13:00→21:30)
[2018-09-29] MEDS: MIRTAZAPINE 15 MG TABLET (FP) PO SCH (21:30)
[2018-09-29] MEDS: THIAMINE HCL 100 MG TABLET (FP) PO SCH (21:32)
[2018-09-29] MEDS: QUEtiapine FUMARATE 300 MG TABLET PO SCH (21:32)
[2018-09-30] MEDS ORDERED: METHADONE HCL 10 MG TABLET ONE (03:04)
[2018-09-30] MEDS ORDERED: METHADONE HCL 40 MG DISPERSABLE TABLET ONE (03:04)
[2018-09-30] MEDS: METHADONE 160 MG, METHADONE 30 MG PO SCH (06:25)
[2018-09-30] MEDS: P-EPHED 60MG/TRIPROLIDI 2.5MG TABLET PO PRN ×2 (06:25→13:14)
[2018-09-30] MEDS: MAG HYDROX/AL HYDROX/SIMETH 30 ML UNIT-DOSE CUP PO PRN (06:25)
[2018-09-30] MEDS: GABAPENTIN 300 MG CAPSULE (FP) PO SCH ×3 (06:25→21:26)
[2018-09-30] MEDS: hydrOXYzine PAMOATE 50 MG CAPSULE (FP) PO PRN ×2 (06:25→13:11)
[2018-09-30] MEDS: NICOTINE POLACRILEX 4 MG GUM BUC PRN ×5 (06:29→21:29)
[2018-09-30] MEDS: COLLOIDAL OATMEAL 1 BAR EACH TP PRN (08:32)
[2018-09-30] MEDS: PRENATAL VITAMINS W/ FOLIC ACID TABLET (FP) PO SCH (09:46)
[2018-09-30] MEDS: NICOTINE 21 MG/24 HOURS TOPICAL PATCH TD SCH (09:46)
[2018-09-30] MEDS: levETIRAcetam 500 MG TABLET (FP) PO SCH ×2 (09:46→21:26)
[2018-09-30] MEDS: BUDESONIDE/FORMETEROL FUMARATE 160/4.5 mcg INHALER IH SCH ×2 (09:47→21:27)
[2018-09-30] MEDS: TIOTROPIUM BROMIDE 2.5 MCG (SPIRIVA) RESPIMAT INHALER IH SCH (09:47)
[2018-09-30] MEDS ORDERED: PT OWN MED DRAWER 7, Y5N ONE ×2 (09:48→21:28)
[2018-09-30] MEDS: SODIUM CHLORIDE NASAL SPRAY 44 ML BOTTLE NS PRN ×2 (09:48→09:50)
[2018-09-30] MEDS: RANITIDINE HCL 150 MG TABLET (FP) PO SCH ×2 (10:41→21:26)
[2018-09-30] MEDS: IBUPROFEN 400 MG TABLET (FP) PO PRN (13:14)
--- NOTE | 2018-09-30 15:23 | CONSULT ---
[facility] Psychiatric Consult - Data Date of interview: 09/30/18 Admission source: Transfer from [address] [place] [address] Identifying data: Admission to [address] for this 43 y/o female who completed detoxification (cocaine, alcohol) on [address] [place] [address] and sought rehabilitation for consolidation of sobriety + management of bipolar disorder. Patient is single, a mother of two, domiciled, unemployed and supported by relatives. Substance Abuse History: Rediscussed in this session. Details as follows : Smoking history: Current every day smoker. Have you smoked in the past 12 months: Yes. Aproximately how many cigarettes per day: 20. Cigars Per Day: 0. Hx Chewing Tobacco Use: No. Initiated information on smoking cessation: Yes. 'Breaking Loose' booklet given: 09/23/18. - Substance & Tx. History. Hx Alcohol Use: Yes. Hx Substance Use: Yes. Substance Use Type: Alcohol, Cocaine , Prescribed (mmtp). Hx Substance Use Treatment: Yes ([facility]). - Substances abused. Cocaine. Substance route: Smoking. Frequency: Daily. Amount used : 5 bags. Age of first use: 41. Date of last use: 09/23/18. Alcohol. Substance route: Oral. Frequency: Daily. Amount used: 1pint of vodka. Age of first use: 40. Date of last use: 09/23/18 Medical History: Remarkable for a history of anemia, bronchial asthma, hypertension, fibromyalgia, antecedent of surgery for excision of pilonidal cyst and a history of withdrawal-related seizures. Psychiatric History: No additional information since encounter of 09/24/18. Patient endorses a history of 2-3 psychiatric hospitalizations ([facility], [facility]). Reportedly diagnosed with Bipolar Disorder. Ms Hylton is currently seeing a private psychiatrist, Dr Adamson in [facility], for medication management (remeron 45 mg/hs + seroquel 300 mg/bid + klonopin 2 mg/ tid + gabapentin 600 mg/tid). Confirmed by refills of 09/02 + 09/19/18 at [facility]. Patient admits to three suicde attempts (self-mutilation). Physical/Sexual Abuse/Trauma History: Patient denies. Additional Comment: Urine drug screen results: EMILIO-Cocaine, MOP-Opiates, MTD- Methadone. Noted on admission from [facility]. Mental Status Exam - Mental Status Exam Alert and Oriented to: Time, Place, Person Cognitive Function: Good Patient Appearance: Well Groomed Mood: Nervous, Anxious Affect: Appropriate, Normal Range Patient Behavior: Restless, Cooperative Speech Pattern: Clear, Appropriate Voice Loudness: Normal Thought Process: Intact, Goal Oriented Thought Disorder: Not Present Hallucinations: Denies Suicidal Ideation: Denies Homicidal Ideation: Denies Insight/Judgement: Fair Sleep: Fair Appetite: Good Gait/Station: Normal Psychiatric Findings - Problem List (Gordon 1, 2,3) (1) Alcohol dependence Current Visit: Yes Status: Chronic (2) Opioid dependence on agonist therapy Current Visit: Yes Status: Chronic (3) Benzodiazepine dependence Current Visit: Yes Status: Suspected (4) Cocaine dependence Current Visit: Yes Status: Chronic Qualifiers: Substance use status: uncomplicated Qualified Code(s): F14.20 - Cocaine dependence, uncomplicated (5) Nicotine dependence Current Visit: Yes Status: Chronic Qualifiers: Nicotine product type: cigarettes Substance use status: uncomplicated Qualified Code(s): F17.210 - Nicotine dependence, cigarettes, uncomplicated (6) Bipolar II disorder Current Visit: Yes Status: Chronic Comment: As per self-report. (7) Insomnia Current Visit: Yes Status: Chronic - Initial Treatment Plan Initial Treatment Plan: Case revisited with medical PUBLIC HEALTH ANALYST [place]. In view of long standing exposure to a benzodiazepine (6 mg/day of clonazepam prescribed by patient's OPD psychiatrist, continuation of that medication is warranted for prevention of complications; taper suggested). Psychoeducation. Sleep hygiene. Motivational counseling for maintenance of sobriety. Support. AA/NA meetings. Psychotherapy. Clonazepam is resumed at a lesser dose (0.5 mg po tid). Side effects/benefits discussed with patient. Medical team is monitoring the patient for recurrence of seizures. Ms Hylton is agreeable with this plan of care. Gave verbal consent to MD. Chavarria.
--- NOTE | 2018-09-30 15:58 | PN ---
[facility] Progress Note Note: Patient is 43 year old female initially admitted to detox for Alcohol withdrawal symptoms and is currently on MMTP. Patient also has h/o seizure disorder and states she seized in past after not taking Klonipin. Seizures currently treated by [facility]. Patient seen by Dr. Smyth for consultation for anxiety and medication reconciliation. DUR below shows Patient has active prescription for Klonipin 2mg TID with last prescription date 09/01/2018. After consultation with Dr. Smyth, psychiatrist recommended that patient should be maintained on lower dose of Klonipin 0.5mg TID to reduce risk of seizure reoccurrence and to manage symptoms of anxiety. Power Plant Operator spoke with patient whom states she feels anxious and restless since admission to rehab. Patient denies SI/HI but was pacing during conversation in room. Power Plant Operator agrees with recommendation to continue lower dose of klonipin and medication ordered. Dr. Wilson updated on patient status and agrees with plan of care. Others' Prescriptions Patient Name: Marisela Hylton Date: 1975 Address: [address] [place] [address] Sex: Female Rx Written Rx Dispensed Drug Quantity Days Supply Prescriber Name 09/01/2018 09/02/2018 clonazepam 2 mg tablet 90 30 Juan Diego Chappell MD 07/30/2018 08/01/2018 clonazepam 2 mg tablet 90 30 Juan Diego Chappell MD 07/02/2018 07/02/2018 clonazepam 2 mg tablet 90 30 Juan Diego Chappell MD 06/04/2018 06/06/2018 clonazepam 2 mg tablet 90 30 Juan Diego Chappell MD 05/12/2018 05/12/2018 clonazepam 1 mg tablet 60 30 José Mackay MD 03/03/2018 03/15/2018 clonazepam 1 mg tablet 60 30 Woody Leary 02/18/2018 03/02/2018 clonazepam 1 mg tablet 28 14 Ifeoma Meyer MD 01/26/2018 02/01/2018 clonazepam 1 mg tablet 60 30 Pacannuayan, Sarah 12/08/2017 12/08/2017 clonazepam 1 mg tablet 60 30 Pacannuayan, Sarah 07/13/2017 10/16/2017 lyrica 25 mg capsule 90 30 José Mackay MD Patient Name: Marisela Hylton Vital Signs (72 hours) 09/29/18 09/29/18 09/29/18 00:30 03:30 07:12 Temperature 98.5 F Pulse Rate 78 Respiratory 18 18 18 Rate Blood Pressure 104/64 09/30/18 09/30/18 09/30/18 00:30 03:30 07:26 Temperature 97.5 F L Pulse Rate 93 H Respiratory 18 18 20 Rate Blood Pressure 106/69
[2018-09-30] MEDS: THIAMINE HCL 100 MG TABLET (FP) PO SCH (21:25)
[2018-09-30] MEDS: clonazePAM 0.5 MG TABLET PO SCH (21:25)
[2018-09-30] MEDS: MIRTAZAPINE 15 MG TABLET (FP) PO SCH (21:26)
[2018-09-30] MEDS: MAGNESIUM HYDROX 2400MG/30ML ORAL SUSPENSION 30 ML CUP PO PRN (21:29)
[2018-09-30] MEDS: QUEtiapine FUMARATE 300 MG TABLET PO SCH (21:29)
[2018-10-01] MEDS: NICOTINE POLACRILEX 4 MG GUM BUC PRN ×6 (02:17→21:40)
[2018-10-01] MEDS ORDERED: METHADONE HCL 10 MG TABLET ONE (04:11)
[2018-10-01] MEDS ORDERED: METHADONE HCL 40 MG DISPERSABLE TABLET ONE (04:11)
[2018-10-01] MEDS: clonazePAM 0.5 MG TABLET PO SCH ×3 (06:01→21:37)
[2018-10-01] MEDS: METHADONE 160 MG, METHADONE 30 MG PO SCH (06:02)
[2018-10-01] MEDS: GABAPENTIN 300 MG CAPSULE (FP) PO SCH ×3 (06:02→21:38)
[2018-10-01] MEDS: levETIRAcetam 500 MG TABLET (FP) PO SCH ×2 (09:32→21:38)
[2018-10-01] MEDS: NICOTINE 21 MG/24 HOURS TOPICAL PATCH TD SCH (09:32)
[2018-10-01] MEDS: RANITIDINE HCL 150 MG TABLET (FP) PO SCH ×2 (09:32→21:37)
[2018-10-01] MEDS: PRENATAL VITAMINS W/ FOLIC ACID TABLET (FP) PO SCH (09:32)
[2018-10-01] MEDS: ALBUTEROL SO4 8 GM HFA INHALER IH PRN (09:34)
[2018-10-01] MEDS: hydrOXYzine PAMOATE 50 MG CAPSULE (FP) PO PRN ×2 (09:36→16:51)
[2018-10-01] MEDS: BUDESONIDE/FORMETEROL FUMARATE 160/4.5 mcg INHALER IH SCH ×2 (10:47→22:23)
[2018-10-01] MEDS: TIOTROPIUM BROMIDE 2.5 MCG (SPIRIVA) RESPIMAT INHALER IH SCH (10:47)
[2018-10-01] MEDS: MAGNESIUM CITRATE 300 ML BOTTLE PO PRN (13:53)
[2018-10-01] MEDS: IBUPROFEN 400 MG TABLET (FP) PO PRN (16:51)
[2018-10-01] MEDS: THIAMINE HCL 100 MG TABLET (FP) PO SCH (21:37)
[2018-10-01] MEDS: MIRTAZAPINE 15 MG TABLET (FP) PO SCH (21:37)
[2018-10-01] MEDS: QUEtiapine FUMARATE 300 MG TABLET PO SCH (21:38)
[2018-10-02] MEDS: hydrOXYzine PAMOATE 50 MG CAPSULE (FP) PO PRN ×3 (02:51→16:48)
[2018-10-02] MEDS: NICOTINE POLACRILEX 4 MG GUM BUC PRN ×4 (02:51→21:23)
[2018-10-02] MEDS ORDERED: METHADONE HCL 10 MG TABLET ONE (04:06)
[2018-10-02] MEDS ORDERED: METHADONE HCL 40 MG DISPERSABLE TABLET ONE (04:07)
[2018-10-02] MEDS: clonazePAM 0.5 MG TABLET PO SCH ×3 (06:14→21:20)
[2018-10-02] MEDS: METHADONE 160 MG, METHADONE 30 MG PO SCH (06:14)
[2018-10-02] MEDS: GABAPENTIN 300 MG CAPSULE (FP) PO SCH ×3 (06:14→21:22)
[2018-10-02] MEDS: levETIRAcetam 500 MG TABLET (FP) PO SCH ×2 (09:47→21:21)
[2018-10-02] MEDS: NICOTINE 21 MG/24 HOURS TOPICAL PATCH TD SCH (09:47)
[2018-10-02] MEDS: PRENATAL VITAMINS W/ FOLIC ACID TABLET (FP) PO SCH (09:47)
[2018-10-02] MEDS: RANITIDINE HCL 150 MG TABLET (FP) PO SCH ×2 (09:47→21:22)
[2018-10-02] MEDS: TIOTROPIUM BROMIDE 2.5 MCG (SPIRIVA) RESPIMAT INHALER IH SCH (09:49)
[2018-10-02] MEDS: MAGNESIUM HYDROX 2400MG/30ML ORAL SUSPENSION 30 ML CUP PO PRN (09:50)
[2018-10-02] MEDS ORDERED: PT OWN MED DRAWER 7, Y5N ONE (09:52)
[2018-10-02] MEDS: BUDESONIDE/FORMETEROL FUMARATE 160/4.5 mcg INHALER IH SCH ×2 (10:26→21:23)
[2018-10-02] MEDS: IBUPROFEN 400 MG TABLET (FP) PO PRN (13:09)
[2018-10-02] MEDS: MAG HYDROX/AL HYDROX/SIMETH 30 ML UNIT-DOSE CUP PO PRN (13:09)
[2018-10-02] MEDS: MIRTAZAPINE 15 MG TABLET (FP) PO SCH (21:21)
[2018-10-02] MEDS: THIAMINE HCL 100 MG TABLET (FP) PO SCH (21:21)
[2018-10-02] MEDS: QUEtiapine FUMARATE 300 MG TABLET PO SCH (21:23)
[2018-10-03] MEDS: IBUPROFEN 400 MG TABLET (FP) PO PRN (00:47)
[2018-10-03] MEDS: NICOTINE POLACRILEX 4 MG GUM BUC PRN ×8 (00:47→22:23)
[2018-10-03] MEDS: hydrOXYzine PAMOATE 50 MG CAPSULE (FP) PO PRN ×3 (00:47→16:42)
[2018-10-03] MEDS: MAG HYDROX/AL HYDROX/SIMETH 30 ML UNIT-DOSE CUP PO PRN ×2 (00:47→08:56)
[2018-10-03] MEDS ORDERED: METHADONE HCL 10 MG TABLET ONE (03:17)
[2018-10-03] MEDS ORDERED: METHADONE HCL 40 MG DISPERSABLE TABLET ONE (03:17)
[2018-10-03] MEDS: METHADONE 160 MG, METHADONE 30 MG PO SCH (06:13)
[2018-10-03] MEDS: GABAPENTIN 300 MG CAPSULE (FP) PO SCH ×3 (06:14→21:08)
[2018-10-03] MEDS: clonazePAM 0.5 MG TABLET PO SCH ×3 (06:14→21:07)
[2018-10-03] MEDS: MAGNESIUM HYDROX 2400MG/30ML ORAL SUSPENSION 30 ML CUP PO PRN (06:17)
[2018-10-03] MEDS: PRENATAL VITAMINS W/ FOLIC ACID TABLET (FP) PO SCH (09:41)
[2018-10-03] MEDS: levETIRAcetam 500 MG TABLET (FP) PO SCH ×2 (09:41→21:08)
[2018-10-03] MEDS: RANITIDINE HCL 150 MG TABLET (FP) PO SCH ×2 (09:41→21:08)
[2018-10-03] MEDS: NICOTINE 21 MG/24 HOURS TOPICAL PATCH TD SCH (09:41)
[2018-10-03] MEDS: TIOTROPIUM BROMIDE 2.5 MCG (SPIRIVA) RESPIMAT INHALER IH SCH (09:42)
[2018-10-03] MEDS: BUDESONIDE/FORMETEROL FUMARATE 160/4.5 mcg INHALER IH SCH ×2 (09:42→21:55)
[2018-10-03] MEDS: P-EPHED 60MG/TRIPROLIDI 2.5MG TABLET PO PRN (09:43)
[2018-10-03] MEDS: SODIUM CHLORIDE NASAL SPRAY 44 ML BOTTLE NS PRN (09:44)
[2018-10-03] MEDS: MAGNESIUM CITRATE 300 ML BOTTLE PO PRN (11:53)
[2018-10-03] MEDS: COLLOIDAL OATMEAL 1 BAR EACH TP PRN (13:23)
[2018-10-03] MEDS: ACETAMINOPHEN 325 MG TABLET (FP) PO PRN (16:42)
[2018-10-03] MEDS: ALBUTEROL SO4 8 GM HFA INHALER IH PRN (16:44)
[2018-10-03] MEDS: THIAMINE HCL 100 MG TABLET (FP) PO SCH (21:07)
[2018-10-03] MEDS: MIRTAZAPINE 15 MG TABLET (FP) PO SCH (21:08)
[2018-10-03] MEDS: QUEtiapine FUMARATE 300 MG TABLET PO SCH (21:54)
[2018-10-04] MEDS ORDERED: METHADONE HCL 10 MG TABLET ONE (04:14)
[2018-10-04] MEDS ORDERED: METHADONE HCL 40 MG DISPERSABLE TABLET ONE (04:14)
[2018-10-04] MEDS: GABAPENTIN 300 MG CAPSULE (FP) PO SCH ×3 (05:55→21:03)
[2018-10-04] MEDS: METHADONE 160 MG, METHADONE 30 MG PO SCH (05:55)
[2018-10-04] MEDS: clonazePAM 0.5 MG TABLET PO SCH ×3 (05:55→21:03)
[2018-10-04] MEDS: PRENATAL VITAMINS W/ FOLIC ACID TABLET (FP) PO SCH (09:56)
[2018-10-04] MEDS: levETIRAcetam 500 MG TABLET (FP) PO SCH ×2 (09:56→21:02)
[2018-10-04] MEDS: RANITIDINE HCL 150 MG TABLET (FP) PO SCH ×2 (09:56→21:05)
[2018-10-04] MEDS: NICOTINE 21 MG/24 HOURS TOPICAL PATCH TD SCH (09:56)
[2018-10-04] MEDS: hydrOXYzine PAMOATE 50 MG CAPSULE (FP) PO PRN ×4 (09:57→23:05)
[2018-10-04] MEDS: BUDESONIDE/FORMETEROL FUMARATE 160/4.5 mcg INHALER IH SCH ×2 (09:58→22:04)
[2018-10-04] MEDS: TIOTROPIUM BROMIDE 2.5 MCG (SPIRIVA) RESPIMAT INHALER IH SCH (09:59)
[2018-10-04] MEDS: NICOTINE POLACRILEX 4 MG GUM BUC PRN ×5 (09:59→23:03)
[2018-10-04] MEDS: MENTHOL/PHENOL 1 EACH UD MM PRN (11:55)
--- NOTE | 2018-10-04 14:13 | PN ---
[facility] Progress Note (SOAP) Subjective: Patient with raised lesions inner aspect of upper and lower lip. Denies hx of genital herpes, has unprotected sex. Denies pain, states that the lesions have been there for several days, but are increasing in number. RPR negative, last HIV test 04/2017. Objective: scattered postules on inner aspect of upper and lower lips. 10/04/18 14:16 Assessment: Herpes simplex 10/04/18 14:16 Plan: Valtrex ordered, HIV test ordered.
[2018-10-04] MEDS: IBUPROFEN 400 MG TABLET (FP) PO PRN (16:37)
[2018-10-04] MEDS: valACYclovir HCL 500 MG TABLET (FP) PO SCH (21:02)
[2018-10-04] MEDS: MIRTAZAPINE 15 MG TABLET (FP) PO SCH (21:04)
[2018-10-04] MEDS: THIAMINE HCL 100 MG TABLET (FP) PO SCH (21:05)
[2018-10-04] MEDS: QUEtiapine FUMARATE 300 MG TABLET PO SCH (21:05)
[2018-10-05] MEDS ORDERED: METHADONE HCL 10 MG TABLET ONE (05:10)
[2018-10-05] MEDS ORDERED: METHADONE HCL 40 MG DISPERSABLE TABLET ONE (05:11)
[2018-10-05] MEDS: METHADONE 160 MG, METHADONE 30 MG PO SCH (06:32)
[2018-10-05] MEDS: clonazePAM 0.5 MG TABLET PO SCH ×3 (06:33→21:02)
[2018-10-05] MEDS: GABAPENTIN 300 MG CAPSULE (FP) PO SCH ×3 (06:33→21:02)
[2018-10-05] MEDS: NICOTINE POLACRILEX 4 MG GUM BUC PRN ×4 (06:37→21:04)
[2018-10-05] MEDS: NICOTINE 21 MG/24 HOURS TOPICAL PATCH TD SCH (09:51)
[2018-10-05] MEDS: BUDESONIDE/FORMETEROL FUMARATE 160/4.5 mcg INHALER IH SCH ×2 (09:51→22:06)
[2018-10-05] MEDS: TIOTROPIUM BROMIDE 2.5 MCG (SPIRIVA) RESPIMAT INHALER IH SCH (09:51)
[2018-10-05] MEDS: RANITIDINE HCL 150 MG TABLET (FP) PO SCH ×2 (09:51→21:03)
[2018-10-05] MEDS: levETIRAcetam 500 MG TABLET (FP) PO SCH ×2 (09:51→21:03)
[2018-10-05] MEDS: hydrOXYzine PAMOATE 50 MG CAPSULE (FP) PO PRN ×3 (09:51→21:04)
[2018-10-05] MEDS: PRENATAL VITAMINS W/ FOLIC ACID TABLET (FP) PO SCH (09:51)
[2018-10-05] MEDS: valACYclovir HCL 500 MG TABLET (FP) PO SCH ×2 (09:51→21:03)
[2018-10-05] MEDS: MIRTAZAPINE 15 MG TABLET (FP) PO SCH (21:02)
[2018-10-05] MEDS: THIAMINE HCL 100 MG TABLET (FP) PO SCH (21:02)
[2018-10-05] MEDS: QUEtiapine FUMARATE 300 MG TABLET PO SCH (21:03)
[2018-10-06] MEDS ORDERED: METHADONE HCL 10 MG TABLET ONE (05:50)
[2018-10-06] MEDS ORDERED: METHADONE HCL 40 MG DISPERSABLE TABLET ONE (05:51)
[2018-10-06] MEDS: METHADONE 160 MG, METHADONE 30 MG PO SCH (05:52)
[2018-10-06] MEDS: GABAPENTIN 300 MG CAPSULE (FP) PO SCH ×3 (05:52→21:32)
[2018-10-06] MEDS: clonazePAM 0.5 MG TABLET PO SCH ×3 (05:52→21:32)
[2018-10-06] MEDS: NICOTINE POLACRILEX 4 MG GUM BUC PRN ×4 (06:07→21:34)
[2018-10-06] MEDS: RANITIDINE HCL 150 MG TABLET (FP) PO SCH ×2 (09:31→21:32)
[2018-10-06] MEDS: valACYclovir HCL 500 MG TABLET (FP) PO SCH ×2 (09:31→21:32)
[2018-10-06] MEDS: hydrOXYzine PAMOATE 50 MG CAPSULE (FP) PO PRN ×3 (09:31→21:34)
[2018-10-06] MEDS: NICOTINE 21 MG/24 HOURS TOPICAL PATCH TD SCH (09:31)
[2018-10-06] MEDS: levETIRAcetam 500 MG TABLET (FP) PO SCH ×2 (09:31→21:32)
[2018-10-06] MEDS: PRENATAL VITAMINS W/ FOLIC ACID TABLET (FP) PO SCH (09:32)
[2018-10-06] MEDS: ACETAMINOPHEN 325 MG TABLET (FP) PO PRN (09:32)
[2018-10-06] MEDS: TIOTROPIUM BROMIDE 2.5 MCG (SPIRIVA) RESPIMAT INHALER IH SCH (09:35)
[2018-10-06] MEDS: BUDESONIDE/FORMETEROL FUMARATE 160/4.5 mcg INHALER IH SCH ×2 (09:35→21:33)
[2018-10-06] MEDS ORDERED: PT OWN MED DRAWER 7, Y5N ONE (11:11)
[2018-10-06] MEDS: COLLOIDAL OATMEAL 1 BAR EACH TP PRN (11:12)
[2018-10-06] MEDS: MIRTAZAPINE 15 MG TABLET (FP) PO SCH (21:33)
[2018-10-06] MEDS: QUEtiapine FUMARATE 300 MG TABLET PO SCH (21:33)
[2018-10-06] MEDS: THIAMINE HCL 100 MG TABLET (FP) PO SCH (22:06)
[2018-10-07] MEDS ORDERED: METHADONE HCL 40 MG DISPERSABLE TABLET ONE (05:50)
[2018-10-07] MEDS ORDERED: METHADONE HCL 10 MG TABLET ONE (05:50)
[2018-10-07] MEDS: METHADONE 160 MG, METHADONE 30 MG PO SCH (06:14)
[2018-10-07] MEDS: clonazePAM 0.5 MG TABLET PO SCH ×3 (06:15→21:10)
[2018-10-07] MEDS: GABAPENTIN 300 MG CAPSULE (FP) PO SCH ×3 (06:15→21:12)
[2018-10-07] MEDS: MENTHOL/PHENOL 1 EACH UD MM PRN ×2 (06:17→10:06)
[2018-10-07] MEDS: NICOTINE POLACRILEX 4 MG GUM BUC PRN ×6 (06:18→21:13)
[2018-10-07] MEDS: RANITIDINE HCL 150 MG TABLET (FP) PO SCH ×2 (09:56→21:10)
[2018-10-07] MEDS: levETIRAcetam 500 MG TABLET (FP) PO SCH ×2 (09:56→21:10)
[2018-10-07] MEDS: PRENATAL VITAMINS W/ FOLIC ACID TABLET (FP) PO SCH (09:56)
[2018-10-07] MEDS: NICOTINE 21 MG/24 HOURS TOPICAL PATCH TD SCH (09:56)
[2018-10-07] MEDS: hydrOXYzine PAMOATE 50 MG CAPSULE (FP) PO PRN ×3 (09:56→21:10)
[2018-10-07] MEDS: valACYclovir HCL 500 MG TABLET (FP) PO SCH ×2 (09:56→21:11)
[2018-10-07] MEDS: ALBUTEROL SO4 8 GM HFA INHALER IH PRN (09:57)
[2018-10-07] MEDS: TIOTROPIUM BROMIDE 2.5 MCG (SPIRIVA) RESPIMAT INHALER IH SCH (09:57)
[2018-10-07] MEDS: SODIUM CHLORIDE NASAL SPRAY 44 ML BOTTLE NS PRN (09:57)
[2018-10-07] MEDS: P-EPHED 60MG/TRIPROLIDI 2.5MG TABLET PO PRN (10:06)
[2018-10-07] MEDS: BUDESONIDE/FORMETEROL FUMARATE 160/4.5 mcg INHALER IH SCH ×2 (10:33→21:13)
[2018-10-07] MEDS: ACETAMINOPHEN 325 MG TABLET (FP) PO PRN ×2 (11:54→17:06)
[2018-10-07] MEDS: MIRTAZAPINE 15 MG TABLET (FP) PO SCH (21:10)
[2018-10-07] MEDS: QUEtiapine FUMARATE 300 MG TABLET PO SCH (21:11)
[2018-10-07] MEDS: THIAMINE HCL 100 MG TABLET (FP) PO SCH (22:10)
[2018-10-08] MEDS ORDERED: METHADONE HCL 40 MG DISPERSABLE TABLET ONE (04:08)
[2018-10-08] MEDS ORDERED: METHADONE HCL 10 MG TABLET ONE (04:08)
[2018-10-08] MEDS: METHADONE 160 MG, METHADONE 30 MG PO SCH (05:58)
[2018-10-08] MEDS: GABAPENTIN 300 MG CAPSULE (FP) PO SCH ×3 (05:58→21:01)
[2018-10-08] MEDS: clonazePAM 0.5 MG TABLET PO SCH ×3 (05:58→21:01)
[2018-10-08] MEDS: MENTHOL/PHENOL 1 EACH UD MM PRN ×4 (06:00→18:27)
[2018-10-08] MEDS: valACYclovir HCL 500 MG TABLET (FP) PO SCH ×2 (10:36→21:02)
[2018-10-08] MEDS: hydrOXYzine PAMOATE 50 MG CAPSULE (FP) PO PRN ×3 (10:36→21:04)
[2018-10-08] MEDS: PRENATAL VITAMINS W/ FOLIC ACID TABLET (FP) PO SCH (10:36)
[2018-10-08] MEDS: TIOTROPIUM BROMIDE 2.5 MCG (SPIRIVA) RESPIMAT INHALER IH SCH (10:36)
[2018-10-08] MEDS: levETIRAcetam 500 MG TABLET (FP) PO SCH ×2 (10:36→21:02)
[2018-10-08] MEDS: RANITIDINE HCL 150 MG TABLET (FP) PO SCH ×2 (10:36→21:06)
[2018-10-08] MEDS: NICOTINE 21 MG/24 HOURS TOPICAL PATCH TD SCH (10:36)
[2018-10-08] MEDS: BUDESONIDE/FORMETEROL FUMARATE 160/4.5 mcg INHALER IH SCH ×2 (10:36→21:02)
[2018-10-08] MEDS: NICOTINE POLACRILEX 4 MG GUM BUC PRN ×4 (10:37→21:07)
[2018-10-08] MEDS: P-EPHED 60MG/TRIPROLIDI 2.5MG TABLET PO PRN ×2 (14:12→21:04)
[2018-10-08] MEDS: MAGNESIUM HYDROX 2400MG/30ML ORAL SUSPENSION 30 ML CUP PO PRN (18:26)
[2018-10-08] MEDS: MIRTAZAPINE 15 MG TABLET (FP) PO SCH (21:02)
[2018-10-08] MEDS: THIAMINE HCL 100 MG TABLET (FP) PO SCH (21:02)
[2018-10-08] MEDS: QUEtiapine FUMARATE 300 MG TABLET PO SCH (21:03)
[2018-10-09] MEDS ORDERED: METHADONE HCL 40 MG DISPERSABLE TABLET ONE (03:23)
[2018-10-09] MEDS ORDERED: METHADONE HCL 10 MG TABLET ONE (03:23)
[2018-10-09] MEDS: clonazePAM 0.5 MG TABLET PO SCH ×3 (06:01→21:26)
[2018-10-09] MEDS: GABAPENTIN 300 MG CAPSULE (FP) PO SCH ×3 (06:01→21:27)
[2018-10-09] MEDS: METHADONE 160 MG, METHADONE 30 MG PO SCH (06:02)
[2018-10-09] MEDS: MAGNESIUM HYDROX 2400MG/30ML ORAL SUSPENSION 30 ML CUP PO PRN (06:02)
[2018-10-09] MEDS: hydrOXYzine PAMOATE 50 MG CAPSULE (FP) PO PRN ×4 (06:02→21:27)
[2018-10-09] MEDS: NICOTINE POLACRILEX 4 MG GUM BUC PRN ×6 (06:04→21:28)
[2018-10-09] MEDS: PRENATAL VITAMINS W/ FOLIC ACID TABLET (FP) PO SCH (09:36)
[2018-10-09] MEDS: NICOTINE 21 MG/24 HOURS TOPICAL PATCH TD SCH (09:36)
[2018-10-09] MEDS: RANITIDINE HCL 150 MG TABLET (FP) PO SCH ×2 (09:36→21:27)
[2018-10-09] MEDS: BUDESONIDE/FORMETEROL FUMARATE 160/4.5 mcg INHALER IH SCH ×2 (09:36→21:25)
[2018-10-09] MEDS: valACYclovir HCL 500 MG TABLET (FP) PO SCH ×2 (09:36→21:26)
[2018-10-09] MEDS: levETIRAcetam 500 MG TABLET (FP) PO SCH ×2 (09:36→21:26)
[2018-10-09] MEDS: TIOTROPIUM BROMIDE 2.5 MCG (SPIRIVA) RESPIMAT INHALER IH SCH (09:37)
[2018-10-09] MEDS: SODIUM CHLORIDE NASAL SPRAY 44 ML BOTTLE NS PRN (09:38)
[2018-10-09] MEDS: P-EPHED 60MG/TRIPROLIDI 2.5MG TABLET PO PRN ×2 (09:39→21:28)
[2018-10-09] MEDS: MIRTAZAPINE 15 MG TABLET (FP) PO SCH (21:26)
[2018-10-09] MEDS: THIAMINE HCL 100 MG TABLET (FP) PO SCH (21:26)
[2018-10-09] MEDS: QUEtiapine FUMARATE 300 MG TABLET PO SCH (21:27)
[2018-10-10] MEDS ORDERED: METHADONE HCL 10 MG TABLET ONE (02:47)
[2018-10-10] MEDS ORDERED: METHADONE HCL 40 MG DISPERSABLE TABLET ONE (02:47)
[2018-10-10] MEDS: COLLOIDAL OATMEAL 1 BAR EACH TP PRN (06:00)
[2018-10-10] MEDS: clonazePAM 0.5 MG TABLET PO SCH ×3 (06:01→21:31)
[2018-10-10] MEDS: METHADONE 160 MG, METHADONE 30 MG PO SCH (06:01)
[2018-10-10] MEDS: hydrOXYzine PAMOATE 50 MG CAPSULE (FP) PO PRN ×3 (06:01→16:55)
[2018-10-10] MEDS: GABAPENTIN 300 MG CAPSULE (FP) PO SCH ×3 (06:01→21:31)
[2018-10-10] MEDS: valACYclovir HCL 500 MG TABLET (FP) PO SCH ×2 (09:52→21:31)
[2018-10-10] MEDS: NICOTINE 21 MG/24 HOURS TOPICAL PATCH TD SCH (09:52)
[2018-10-10] MEDS: levETIRAcetam 500 MG TABLET (FP) PO SCH ×2 (09:52→21:30)
[2018-10-10] MEDS: RANITIDINE HCL 150 MG TABLET (FP) PO SCH ×2 (09:52→21:31)
[2018-10-10] MEDS: TIOTROPIUM BROMIDE 2.5 MCG (SPIRIVA) RESPIMAT INHALER IH SCH (09:52)
[2018-10-10] MEDS: PRENATAL VITAMINS W/ FOLIC ACID TABLET (FP) PO SCH (09:52)
[2018-10-10] MEDS: SODIUM CHLORIDE NASAL SPRAY 44 ML BOTTLE NS PRN (09:53)
[2018-10-10] MEDS: BUDESONIDE/FORMETEROL FUMARATE 160/4.5 mcg INHALER IH SCH ×2 (09:53→21:33)
[2018-10-10] MEDS: NICOTINE POLACRILEX 4 MG GUM BUC PRN ×4 (09:57→22:23)
[2018-10-10] MEDS: MENTHOL/PHENOL 1 EACH UD MM PRN ×2 (09:57→16:55)
[2018-10-10] MEDS: MIRTAZAPINE 15 MG TABLET (FP) PO SCH (21:30)
[2018-10-10] MEDS: ACETAMINOPHEN 325 MG TABLET (FP) PO PRN (21:31)
[2018-10-10] MEDS: QUEtiapine FUMARATE 300 MG TABLET PO SCH (21:31)
[2018-10-10] MEDS: THIAMINE HCL 100 MG TABLET (FP) PO SCH (21:32)
[2018-10-11] MEDS: NICOTINE POLACRILEX 4 MG GUM BUC PRN ×6 (03:50→21:03)
[2018-10-11] MEDS ORDERED: METHADONE HCL 40 MG DISPERSABLE TABLET ONE (04:29)
[2018-10-11] MEDS ORDERED: METHADONE HCL 10 MG TABLET ONE (04:29)
[2018-10-11] MEDS: hydrOXYzine PAMOATE 50 MG CAPSULE (FP) PO PRN ×4 (05:51→21:02)
[2018-10-11] MEDS: clonazePAM 0.5 MG TABLET PO SCH ×3 (05:52→21:01)
[2018-10-11] MEDS: GABAPENTIN 300 MG CAPSULE (FP) PO SCH ×3 (05:52→21:02)
[2018-10-11] MEDS: METHADONE 160 MG, METHADONE 30 MG PO SCH (05:52)
--- NOTE | 2018-10-11 09:52 | PN ---
[facility] Progress Note Note: Pt states she is not sleeping at night. Is on seroquel- but still only getting 6 hours of sleep/night. Pt has MH consult- pending from yesterday.
[2018-10-11] MEDS: PRENATAL VITAMINS W/ FOLIC ACID TABLET (FP) PO SCH (10:02)
[2018-10-11] MEDS: RANITIDINE HCL 150 MG TABLET (FP) PO SCH ×2 (10:02→21:03)
[2018-10-11] MEDS: NICOTINE 21 MG/24 HOURS TOPICAL PATCH TD SCH (10:02)
[2018-10-11] MEDS: valACYclovir HCL 500 MG TABLET (FP) PO SCH ×2 (10:02→21:03)
[2018-10-11] MEDS: levETIRAcetam 500 MG TABLET (FP) PO SCH ×2 (10:02→21:02)
[2018-10-11] MEDS: TIOTROPIUM BROMIDE 2.5 MCG (SPIRIVA) RESPIMAT INHALER IH SCH (10:03)
[2018-10-11] MEDS ORDERED: PT OWN MED DRAWER 7, Y5N ONE (10:04)
[2018-10-11] MEDS: MENTHOL/PHENOL 1 EACH UD MM PRN (10:05)
[2018-10-11] MEDS: P-EPHED 60MG/TRIPROLIDI 2.5MG TABLET PO PRN (10:06)
[2018-10-11] MEDS: BUDESONIDE/FORMETEROL FUMARATE 160/4.5 mcg INHALER IH SCH ×2 (10:25→21:04)
[2018-10-11] MEDS: MIRTAZAPINE 15 MG TABLET (FP) PO SCH (21:01)
[2018-10-11] MEDS: ACETAMINOPHEN 325 MG TABLET (FP) PO PRN (21:02)
[2018-10-11] MEDS: THIAMINE HCL 100 MG TABLET (FP) PO SCH (21:03)
[2018-10-11] MEDS: QUEtiapine FUMARATE 300 MG TABLET PO SCH (21:06)
[2018-10-12] MEDS ORDERED: METHADONE HCL 40 MG DISPERSABLE TABLET ONE (04:33)
[2018-10-12] MEDS ORDERED: METHADONE HCL 10 MG TABLET ONE (04:33)
[2018-10-12] MEDS: clonazePAM 0.5 MG TABLET PO SCH ×3 (05:53→21:00)
[2018-10-12] MEDS: GABAPENTIN 300 MG CAPSULE (FP) PO SCH ×3 (05:53→21:00)
[2018-10-12] MEDS: NICOTINE POLACRILEX 4 MG GUM BUC PRN ×5 (05:53→21:03)
[2018-10-12] MEDS: hydrOXYzine PAMOATE 50 MG CAPSULE (FP) PO PRN ×4 (05:53→21:01)
[2018-10-12] MEDS: METHADONE 160 MG, METHADONE 30 MG PO SCH (05:54)
[2018-10-12] MEDS: TIOTROPIUM BROMIDE 2.5 MCG (SPIRIVA) RESPIMAT INHALER IH SCH (09:27)
[2018-10-12] MEDS: BUDESONIDE/FORMETEROL FUMARATE 160/4.5 mcg INHALER IH SCH ×2 (09:27→22:17)
[2018-10-12] MEDS: ALBUTEROL SO4 8 GM HFA INHALER IH PRN (09:27)
[2018-10-12] MEDS ORDERED: PT OWN MED DRAWER 7, Y5N ONE (09:30)
[2018-10-12] MEDS: MAGNESIUM HYDROX 2400MG/30ML ORAL SUSPENSION 30 ML CUP PO PRN (09:31)
[2018-10-12] MEDS: PRENATAL VITAMINS W/ FOLIC ACID TABLET (FP) PO SCH (09:31)
[2018-10-12] MEDS: valACYclovir HCL 500 MG TABLET (FP) PO SCH ×2 (09:31→21:01)
[2018-10-12] MEDS: NICOTINE 21 MG/24 HOURS TOPICAL PATCH TD SCH (09:31)
[2018-10-12] MEDS: RANITIDINE HCL 150 MG TABLET (FP) PO SCH ×2 (09:31→21:00)
[2018-10-12] MEDS: levETIRAcetam 500 MG TABLET (FP) PO SCH ×2 (09:31→21:01)
[2018-10-12] MEDS: SODIUM CHLORIDE NASAL SPRAY 44 ML BOTTLE NS PRN (09:31)
[2018-10-12] MEDS: MENTHOL/PHENOL 1 EACH UD MM PRN (09:32)
[2018-10-12] MEDS: P-EPHED 60MG/TRIPROLIDI 2.5MG TABLET PO PRN ×2 (09:32→15:04)
[2018-10-12] MEDS: ACETAMINOPHEN 325 MG TABLET (FP) PO PRN (17:17)
[2018-10-12] MEDS: MIRTAZAPINE 15 MG TABLET (FP) PO SCH (21:00)
[2018-10-12] MEDS: THIAMINE HCL 100 MG TABLET (FP) PO SCH (21:00)
[2018-10-12] MEDS: QUEtiapine FUMARATE 300 MG TABLET PO SCH (21:01)
[2018-10-12] MEDS: MELATONIN 5 MG TABLETS PO PRN (21:02)
[2018-10-13] MEDS ORDERED: METHADONE HCL 40 MG DISPERSABLE TABLET ONE (06:04)
[2018-10-13] MEDS ORDERED: METHADONE HCL 10 MG TABLET ONE (06:04)
[2018-10-13] MEDS: clonazePAM 0.5 MG TABLET PO SCH ×3 (06:06→21:00)
[2018-10-13] MEDS: P-EPHED 60MG/TRIPROLIDI 2.5MG TABLET PO PRN (06:06)
[2018-10-13] MEDS: hydrOXYzine PAMOATE 50 MG CAPSULE (FP) PO PRN ×4 (06:06→21:00)
[2018-10-13] MEDS: METHADONE 160 MG, METHADONE 30 MG PO SCH (06:07)
[2018-10-13] MEDS: GABAPENTIN 300 MG CAPSULE (FP) PO SCH ×3 (06:10→21:00)
[2018-10-13] MEDS: NICOTINE POLACRILEX 4 MG GUM BUC PRN ×4 (06:11→21:02)
[2018-10-13] MEDS ORDERED: PT OWN MED DRAWER 7, Y5N ONE (08:49)
[2018-10-13] MEDS: levETIRAcetam 500 MG TABLET (FP) PO SCH ×2 (09:32→21:00)
[2018-10-13] MEDS: TIOTROPIUM BROMIDE 2.5 MCG (SPIRIVA) RESPIMAT INHALER IH SCH (09:32)
[2018-10-13] MEDS: RANITIDINE HCL 150 MG TABLET (FP) PO SCH ×2 (09:32→21:00)
[2018-10-13] MEDS: BUDESONIDE/FORMETEROL FUMARATE 160/4.5 mcg INHALER IH SCH ×2 (09:32→21:38)
[2018-10-13] MEDS: NICOTINE 21 MG/24 HOURS TOPICAL PATCH TD SCH (09:32)
[2018-10-13] MEDS: valACYclovir HCL 500 MG TABLET (FP) PO SCH ×2 (09:33→21:00)
[2018-10-13] MEDS: PRENATAL VITAMINS W/ FOLIC ACID TABLET (FP) PO SCH (09:34)
[2018-10-13] MEDS: MENTHOL/PHENOL 1 EACH UD MM PRN (09:35)
--- NOTE | 2018-10-13 10:40 | PN ---
[facility] Progress Note (SOAP) Subjective: Pt is a 43 y/o female admitted to rehab, completed treatment and scheduled for discharge tomorrow. Pt met with her counselor and has been referred to [facility] for CD aftercare/mmtp on [address], [place]. Pt reports she has a primary care provider, Dr. José Mackay at [facility] and has appointments for primary care on 11/06/18 and for liver clinic on 11/08/18. Pt denies s/h/i. Objective: 10/13/18 10:37 Vital Signs - 24 hr 10/13/18 10/13/18 10/13/18 00:30 03:30 06:59 Temperature 98.8 F Pulse Rate 92 H Respiratory 18 18 20 Rate Blood Pressure 111/64 Laboratory Tests 09/29/18 10/05/18 10/05/18 08:35 07:00 08:30 POC Glucometer Levetiracetam 8.0 L HIV 1&2 Ag/Ab, 4th Gen Non reactive HIV 1&2 Antibody Screen Cancelled HIV P24 Antigen Cancelled 10/06/18 10/07/18 05:48 06:11 POC Glucometer 99 107 Levetiracetam HIV 1&2 Ag/Ab, 4th Gen HIV 1&2 Antibody Screen HIV P24 Antigen Home Medications Medication Instructions Recorded hydrOXYzine PAMOATE [Vistaril -] 50 mg PO DAILY 05/03/17 Mirtazapine [Remeron -] 45 mg PO HS #30 tablet 05/17/17 Albuterol Sulfate Inhaler - 2 puff IH Q4H PRN #1 inhaler 05/18/17 [Ventolin HFA Inhaler -] Budesonide/Formeterol Fumarate 1 puff IH BID #1 inhaler 05/18/17 [SYMBICORT 160/4.5mcg -] levETIRAcetam [Keppra -] 500 mg PO BID #60 tablet 05/18/17 Clonazepam [Klonopin] 2 mg PO TID 09/23/18 Spiriva Respimat 1 puff PO BID 09/23/18 Quetiapine Fumarate [Seroquel -] 300 mg PO BID 09/28/18 General:Alert o x 3. Well nourished , well developed female. Cardiac:s1 s2, rrr Lungs:cta,mikie, Abdomen:soft, +bs,nt,nd Extremities/Skin:No edema/cyanosis;wnl Assessment: 10/13/18 10:39 Medically stable [facility] Inpatient Services Medical - Diagnosis (1) Alcohol dependence Qualifiers: Substance use status: uncomplicated Qualified Code(s): F10.20 - Alcohol dependence, uncomplicated Current Visit: Yes Status: Chronic (2) Cocaine dependence Qualifiers: Substance use status: uncomplicated Qualified Code(s): F14.20 - Cocaine dependence, uncomplicated Current Visit: Yes Status: Chronic (3) Nicotine dependence Qualifiers: Nicotine product type: cigarettes Substance use status: uncomplicated Qualified Code(s): F17.210 - Nicotine dependence, cigarettes, uncomplicated Current Visit: Yes Status: Chronic (4) Asthma Qualifiers: Asthma severity: moderate Asthma complication type: uncomplicated Current Visit: Yes Status: Chronic (5) Fibromyalgia Current Visit: Yes Status: Chronic (6) HTN (hypertension) Qualifiers: Hypertension type: essential hypertension Qualified Code(s): I10 - Essential (primary) hypertension Current Visit: Yes Status: Chronic (7) Methadone maintenance therapy patient Current Visit: Yes Status: Chronic (8) Psychiatric disorder Current Visit: Yes Status: Chronic Initialized on 10/13/18 10:40 - END OF NOTE Plan: D/c pt tomorrow Follow up with CD aftercare as recommended. Follow up with Primary care provider Dr. José Mackay within 1-2 weeks/or as scheduled after discharge.
[2018-10-13] MEDS: IBUPROFEN 400 MG TABLET (FP) PO PRN (11:52)
--- NOTE | 2018-10-13 15:26 | PN ---
[facility] Progress Note Note: Patient is scheduled for discharge tomorrow. Scripts for 30 days supply of medications(Seroquel 300 mg/hs, Remeron 45 mg/hs)will be electronically transmitted to [facility] at [address] [place] [address]
[2018-10-13] MEDS: MIRTAZAPINE 15 MG TABLET (FP) PO SCH (20:59)
[2018-10-13] MEDS: QUEtiapine FUMARATE 300 MG TABLET PO SCH (21:00)
[2018-10-13] MEDS: THIAMINE HCL 100 MG TABLET (FP) PO SCH (21:00)
[2018-10-14] MEDS ORDERED: METHADONE HCL 40 MG DISPERSABLE TABLET ONE (05:03)
[2018-10-14] MEDS ORDERED: METHADONE HCL 10 MG TABLET ONE (05:03)
[2018-10-14] MEDS ORDERED: PT OWN MED DRAWER 7, Y5N ONE (05:47)
[2018-10-14] MEDS: hydrOXYzine PAMOATE 50 MG CAPSULE (FP) PO PRN (05:48)
[2018-10-14] MEDS: METHADONE 160 MG, METHADONE 30 MG PO SCH (05:48)
[2018-10-14] MEDS: GABAPENTIN 300 MG CAPSULE (FP) PO SCH (05:48)
[2018-10-14] MEDS: NICOTINE POLACRILEX 4 MG GUM BUC PRN (05:48)
[2018-10-14] MEDS: clonazePAM 0.5 MG TABLET PO SCH (05:48)
[2018-10-14 07:58] VITALS: BP 130/68; PULSE 79; TEMP 94.6
[2018-10-14] MEDS: TIOTROPIUM BROMIDE 2.5 MCG (SPIRIVA) RESPIMAT INHALER IH SCH (09:16)
[2018-10-14] MEDS: NICOTINE 21 MG/24 HOURS TOPICAL PATCH TD SCH (09:16)
[2018-10-14] MEDS: RANITIDINE HCL 150 MG TABLET (FP) PO SCH (09:16)
[2018-10-14] MEDS: PRENATAL VITAMINS W/ FOLIC ACID TABLET (FP) PO SCH (09:16)
[2018-10-14] MEDS: levETIRAcetam 500 MG TABLET (FP) PO SCH (09:16)
[2018-10-14] MEDS: BUDESONIDE/FORMETEROL FUMARATE 160/4.5 mcg INHALER IH SCH (09:17)
--- NOTE | 2018-10-14 10:07 | PN ---
[facility] Progress Note Note: Patient treated by Dr. Juan Diego Chappell for anxiety and as per [facility] records was receiving Klonipin 2mg TID. During rehab admission, patient was seen by Dr. Smyth and doctor recommended patient be maintained on Klonipin 0.5mg tid due to hx of seizures. Dr. Wilson agreed with plan of care and medication was ordered. As per [facility]stop, last prescription filled 09/01/18. Patient has appt follow up with Dr. Chappell for next week 10/21/18. Patient ordered Klonipin 0.5mg TID #21/0 refills until patient is able to follow up with provider. Vital Signs Temperature 94.6 F L 10/14/18 06:30 Pulse Rate 79 10/14/18 06:30 Respiratory Rate 18 10/14/18 06:30 Blood Pressure 130/68 10/14/18 06:30 O2 Sat by Pulse Oximetry (%) Ambulatory Orders hydrOXYzine PAMOATE [Vistaril -] 50 mg PO DAILY 05/03/17 Albuterol Sulfate Inhaler - [Ventolin HFA Inhaler -] 2 puff IH Q4H PRN #1 inhaler 05/18/17 Budesonide/Formeterol Fumarate [SYMBICORT 160/4.5mcg -] 1 puff IH BID #1 inhaler 05/18/17 Clonazepam [Klonopin] 2 mg PO TID 09/23/18 Spiriva Respimat 1 puff PO BID 09/23/18 Mirtazapine [Remeron -] 45 mg PO HS #90 tablet 10/13/18 Quetiapine Fumarate [Seroquel -] 300 mg PO HS #30 tablet 10/13/18 levETIRAcetam [Keppra -] 500 mg PO BID #60 tablet 10/13/18 clonazePAM [Klonopin -] 0.5 mg PO TID #21 tablet MDD 1.5MG 10/14/18
== END 2018-10-14 09:25 | disposition home or self-care (01) | DRG 772 ==
LOC: YASAS 15:13 → Y3W 15:14
PROVIDERS: ADMIT Neuromusculoskeletal Medicine & OMM; ATTEND Neuromusculoskeletal Medicine & OMM
PROC: HZ42ZZZ Group Counseling for Substance Abuse Treatment, Cognitive-Behavioral (ICD-10-PCS; principal; 2018-09-28)
DX: F10.20 Alcohol dependence, uncomplicated (principal); F11.20 Opioid dependence, uncomplicated; F13.20 Sedative, hypnotic or anxiolytic dependence, uncomplicated; F14.20 Cocaine dependence, uncomplicated; F17.210 Nicotine dependence, cigarettes, uncomplicated; F99 Mental disorder, not otherwise specified; F31.81 Bipolar II disorder; I10 Essential (primary) hypertension; J45.909 Unspecified asthma, uncomplicated; M79.7 Fibromyalgia; B00.9 Herpesviral infection, unspecified; G47.00 Insomnia, unspecified
CPT/HCPCS: 36415; 80177; 82962; 87389

== ENCOUNTER 2019-05-03 13:51 | Inpatient (IN) | payer OTHER ==
--- NOTE | 2019-05-03 14:14 | [facility].RME ---
Substance Use & Tx History - Substance Use History Alcohol Substance amount: 1 pint vodka Frequency of use: Daily Substance route: Oral Date of Last Use: 05/03/19 Nicotine Substance amount: 1 pack Frequency of use: Daily Substance route: Smoking Date of Last Use: 05/03/19 Physical/Psych/Mental Status - Behavior General Behavior: Increased activity (restlessness, agitation) Eye Contact: Normal - Cooperativeness Cooperativeness: Cooperative - Thinking Thought Processes: Tight, Logical, Goal Directed Thought content: Future oriented - Physical Health Problems Is patient presently having any pain?: No Does patient presently have any injuries (include location): No Does patient currently have a fever: No Is patient : No CIWA Nausea/Vomitin-Mild Nausea/No Vomiting Muscle Tremors: 3 Anxiety: 3 Agitation: 3 Paroxysmal Sweats: 1-Minimal Palms Moist Orientation: 2-Disoriented Date<2 days Tacttile Disturbances: 0-None Auditory Disturbances: 0-None Visual Disturbances: 0-None Headache: 0-None Present (not yet in withdrawals due to last drink at 10:00am) CIWA-Ar Total Score: 13
[2019-05-03 16:59] VITALS: BMI 25.7
[2019-05-03] MEDS ORDERED: FLU VACCINE QUAD 60 MCG/0.5 ML (MDV 19-20) IM ONE (17:54)
--- NOTE | 2019-05-03 18:09 | HP ---
CIWA Score Nausea/Vomitin-No Nausea/No Vomiting Muscle Tremors: 3 Anxiety: 3 Agitation: 3 Paroxysmal Sweats: 1-Minimal Palms Moist Orientation: 2-Disoriented Date<2 days Tacttile Disturbances: 0-None Auditory Disturbances: 0-None Visual Disturbances: 0-None Headache: 3-Moderate (5/10) CIWA-Ar Total Score: 15 - Admission Criteria OASAS Guidelines: Admission for Medically Managed Detox: Requires at least one of the followin. CIWA greater than 12 2. Seizures within the past 24 hours 3. Delirium tremens within the past 24 hours 4. Hallucinations within the past 24 hours 5. Acute intervention needed for co occurring medical disorder 6. Acute intervention needed for co occurring psychiatric disorder 7. Severe withdrawal that cannot be handled at a lower level of care (continued vomiting, continued diarrhea, abnormal vital signs) requiring intravenous medication and/or fluids 8. Patient presents the following: CIWA greater than 12 Admission Criteria Met: Admission criteria met Admitting History and Physical - Past Medical History ...LMP: 04/26/17 ([facility] does not recall last lmp) ...: No - Smoking History Smoking history: Current every day smoker Have you smoked in the past 12 months: Yes Aproximately how many cigarettes per day: 20 - Alcohol/Substance Use Hx Alcohol Use: Yes Admission ROS [facility] Chief Complaint: C/O WITHDRAWAL SX'S Allergies/Adverse Reactions: Allergies Allergy/AdvReac Type Severity Reaction Status Date / Time divalproex sodium Allergy Severe Difficulty Verified 05/03/19 17:33 [From Depakote] Breathing pregabalin [From Lyrica] Allergy Severe Rash Verified 05/03/19 17:33 tramadol Allergy Severe Verified 05/03/19 17:33 History of Present Illness: 43 y.o. female with hx/o alcoholism, opioid and cocaine dependence here for detox. client is self referred. previous admissions noted. client is on mmtp at [facility] approach reports she is on 200 mg daily. ldm today pending verification. she reports she drinking alcohol daily. last drink a few hours ago due to onset of withdrawal sx's. +eye manager nicu, hx of seizures on keppra,. denies any significant period of clean time except when in txment. client reports relapsing approx a 1week later after last DC . deNies si/hi/avh. domiciled, welfare, denies legals pmhx- fibromyalgia, trigeminal nerve pain, seizure psych-bipolar, depression, anxiety Exam Limitations: No Limitations - Ebola screening Have you traveled outside of the country in the last 21 days: No Have you had contact with anyone from an Ebola affected area: No Have you been sick,other than usual withdrawal symptoms: No Do you have a fever: No - Review of Systems Constitutional: Loss of Appetite, Changes in sleep EENT: reports: Dental Problems (MISSING TEETH) Respiratory: reports: Shortness of Breath (2/2 ASTHMA) Cardiac: reports: No Symptoms Reported GI: reports: No Symptoms Reported : reports: No Symptoms Reported Musculoskeletal: reports: No Symptoms Reported Integumentary: reports: No Symptoms Reported Neuro: reports: Headache, Seizure (WITHDRAWAL), Unsteady Gait (STATES WALKS WITH CANE BUT DOES NOT HAVE IT WITH HER) Endocrine: reports: No Symptoms Reported Hematology: reports: Anemia (HX) Psychiatric: reports: Orientated x3, Anxious, Depressed Other Systems: Reviewed and Negative Patient History - Patient Medical History Hx Anemia: Yes Hx Asthma: Yes Hx Chronic Obstructive Pulmonary Disease (COPD): No Hx Cancer: No Hx Cardiac Disorders: No Hx Congestive Heart Failure: No Hx Hypertension: No Hx Hypercholesterolemia: No Hx Pacemaker: No HX Cerebrovascular Accident: No Hx Seizures: Yes (R/T WITHDRAWAL) Hx Dementia: No Hx Diabetes: No Hx Gastrointestinal Disorders: No Hx Liver Disease: Yes (Hep C ) Hx Genitourinary Disorders: No Hx Sexually Transmitted Disorders: No Hx Renal Disease (ESRD): No Hx Thyroid Disease: No Hx Human Immunodeficiency Virus (HIV): No Hx Hepatitis C: Yes (NO TXMENT) Hx Depression: Yes Hx Suicide Attempt: No Hx Bipolar Disorder: Yes Hx Schizophrenia: No Other Medical History: FIBROMYALGIA - Patient Surgical History Past Surgical History: Yes Hx Neurologic Surgery: No Hx Cataract Extraction: No Hx Cardiac Surgery: No Hx Lung Surgery: No Hx Breast Surgery: No Hx Breast Biopsy: No Hx Abdominal Surgery: No Hx Appendectomy: No Hx Cholecystectomy: No Hx Genitourinary Surgery: No Hx Section: No Hx Orthopedic Surgery: No Hx Hysterectomy: No Other Surgical History: Pt had sx for a pilonidal cyst. Anesthesia Reaction: No - PPD History Previous Implant?: Yes Documented Results: Negative w/proof Implanted On Prior [facility] Admission?: Yes Date: 05/05/17 Results: 0mm PPD to be Administered?: Yes - Reproductive History Patient is a Female of Child Bearing Age (11 -55 yrs old): Yes Last Menstrual Period: 04/25/18 LMP comment: SPOTTING ON DEPO Patient : No (NEG [facility]) - Smoking Cessation Smoking history: Current every day smoker Have you smoked in the past 12 months: Yes Aproximately how many cigarettes per day: 20 Cigars Per Day: 0 Hx Chewing Tobacco Use: No Initiated information on smoking cessation: Yes 'Breaking Loose' booklet given: 05/03/19 - Substance & Tx. History Hx Alcohol Use: Yes Hx Substance Use: Yes Substance Use Type: Alcohol, Prescribed (METHADONE) Hx Substance Use Treatment: Yes ([facility]) - Substances abused Cocaine Substance route: Inhalation Frequency: Daily Amount used: 20-30 dollars Age of first use: 30 Date of last use: 05/02/19 Alcohol Substance route: Oral Frequency: 3-6 times per week (3X) Amount used: 1 pint of vodka/ 1 can of beer. Age of first use: 17 Date of last use: 05/03/19 Admission Physical Exam S - Vital Signs Vital Signs: Vital Signs - 24 hr 05/03/19 05/03/19 16:55 17:39 Temperature 97.5 F L 97.5 F L Pulse Rate 56 L 56 L Respiratory 11 16 Rate Blood Pressure 97/61 97/61 - Physical General Appearance: Yes: Mild Distress, Irritable, Anxious HEENTM: Yes: EOMI, Normocephalic, Normal Voice, ALICE, Pharynx Normal Respiratory: Yes: Chest Non-Tender, Lungs Clear, Normal Breath Sounds, No Respiratory Distress, No Accessory Muscle Use Neck: Yes: No masses,lesions,Nodules, Supple, Trachea in good position Breast: Yes: Breasts Symetrical Cardiology: Yes: Regular Rhythm, Regular Rate, S1, S2 Abdominal: Yes: Non Tender, Soft, Increased Bowel Sounds Genitourinary: Yes: Within Normal Limits Back: Yes: Normal Inspection Musculoskeletal: Yes: full range of Motion, Gait Steady Extremities: Yes: Normal Capillary Refill, Normal Range of Motion, Non-Tender Neurological: Yes: Fully Oriented, Alert, Motor Strength 5/5 Integumentary: Yes: Dry, Warm Lymphatic: Yes: Within Normal Limits - Diagnostic (1) Alcohol dependence with withdrawal, uncomplicated Current Visit: Yes Status: Acute (2) At risk for dehydration due to poor fluid intake Current Visit: Yes Status: Acute (3) Asthma Current Visit: Yes Status: Chronic Qualifiers: Asthma severity: mild Asthma complication type: uncomplicated (4) Cocaine dependence Current Visit: Yes Status: Acute Qualifiers: Substance use status: uncomplicated Qualified Code(s): F14.20 - Cocaine dependence, uncomplicated (5) Fibromyalgia Current Visit: Yes Status: Chronic (6) Methadone maintenance therapy patient Current Visit: Yes Status: Chronic Comment: on 200 mg Methadone, dose pending verification (7) Nicotine dependence Current Visit: Yes Status: Chronic Qualifiers: Nicotine product type: cigarettes Substance use status: uncomplicated Qualified Code(s): F17.210 - Nicotine dependence, cigarettes, uncomplicated (8) Withdrawal seizures Current Visit: Yes Status: Suspected Comment: HX (9) HCV (hepatitis C virus) Current Visit: Yes Status: Chronic Qualifiers: Viral hepatitis chronicity: chronic (10) Lipoma of right upper extremity Current Visit: Yes Status: Chronic Cleared for Admission [facility] - Detox or Rehab [facility] Level of Care: Medically Managed Detox Regimen/Protocol: Librium Claeared for Rehab Admission: No Breathalyzer - Breathalyzer Breathalyzer: 0 Urine Drug Screen - Test Device Lot number: [id number] Expiration date: 01/28/21 - Control Is test valid?: Yes - Results Drug screen NEGATIVE: No ([facility]) Urine drug screen results: EMILIO-Cocaine, MTD-Methadone, BZO-Benzodiazepines Inpatient Rehab Admission - Rehab Decision to Admit Inpatient rehab admission?: No
[2019-05-03] MEDS ORDERED: ALBUTEROL SO4 HFA INHALER IH PRN (18:20)
[2019-05-03] MEDS ORDERED: ACETAMINOPHEN 325 MG TABLET (FP) PO PRN ×2 (18:22)
[2019-05-03] MEDS ORDERED: MENTHOL/PHENOL 1 EACH UD MM PRN (18:22)
[2019-05-03] MEDS ORDERED: guaiFENesin 200 MG/10 ML 10 ML UNIT-DOSE CUPS PO PRN (18:22)
[2019-05-03] MEDS ORDERED: IBUPROFEN 400 MG TABLET (FP) PO PRN (18:22)
[2019-05-03] MEDS ORDERED: DICYCLOMINE HCL 10 MG CAPSULE PO PRN (18:22)
[2019-05-03] MEDS ORDERED: P-EPHED 60MG/TRIPROLIDI 2.5MG TABLET PO PRN (18:22)
[2019-05-03] MEDS ORDERED: BISMUTH SUBSALICYLATE 524 MG/30 ML UD PO PRN (18:22)
[2019-05-03] MEDS ORDERED: ONDANSETRON *ODT* 4 MG TABLET SL ONE (18:22)
[2019-05-03] MEDS ORDERED: MAGNESIUM CITRATE 300 ML BOTTLE PO PRN (18:22)
[2019-05-03] MEDS: chlordiazePOXIDE HCL 10 MG CAPSULE PO PRN (19:10)
[2019-05-03] MEDS: BUDESONIDE/FORMETEROL FUMARATE 160/4.5 mcg INHALER IH SCH (22:31)
[2019-05-03] MEDS: hydrOXYzine PAMOATE 25 MG CAPSULE (FP) PO SCH (22:32)
[2019-05-03] MEDS: THIAMINE HCL 100 MG TABLET (FP) PO SCH (22:32)
[2019-05-03] MEDS: chlordiazePOXIDE HCL 25 MG CAPSULE PO SCH (22:32)
[2019-05-03] MEDS: levETIRAcetam 500 MG TABLET (FP) PO SCH (22:33)
[2019-05-03] MEDS: MELATONIN 5 MG TABLETS PO SCH (22:33)
[2019-05-03] MEDS: NICOTINE POLACRILEX 2 MG GUM BUC PRN (22:35)
[2019-05-04] MEDS: chlordiazePOXIDE HCL 25 MG CAPSULE PO SCH ×3 (05:56→22:18)
[2019-05-04] MEDS: hydrOXYzine PAMOATE 25 MG CAPSULE (FP) PO SCH ×5 (05:57→22:19)
[2019-05-04] MEDS ORDERED: METHADONE HCL 10 MG TABLET PO ONE (10:00)
[2019-05-04] MEDS ORDERED: METHADONE HCL 40 MG DISPERSABLE TABLET PO ONE (10:00)
[2019-05-04] MEDS: PRENATAL VITAMINS W/ FOLIC ACID TABLET (FP) PO SCH (10:05)
[2019-05-04] MEDS: NICOTINE 21 MG/24 HOURS TOPICAL PATCH TD SCH (10:05)
[2019-05-04] MEDS: levETIRAcetam 500 MG TABLET (FP) PO SCH ×2 (10:05→22:19)
[2019-05-04] MEDS: NICOTINE POLACRILEX 2 MG GUM BUC PRN (10:06)
[2019-05-04] MEDS: BUDESONIDE/FORMETEROL FUMARATE 160/4.5 mcg INHALER IH SCH ×2 (10:06→22:20)
--- NOTE | 2019-05-04 10:11 | CONSULT ---
[facility] Psychiatric Consult - Data Date of interview: 05/04/19 Admission source: [facility] Identifying data: Patient is a 43 year old single female, mother of two, unemployed, domiciled (resides with mother), and is not supported with financial assistance. This is one of multiple admissions for patient. Patient admitted to for alcohol and cocaine dependence. Substance Abuse History: Smoking Cessation. Smoking history: Current every day smoker. Have you smoked in the past 12 months: Yes. Aproximately how many cigarettes per day: 20. Cigars Per Day: 0. Hx Chewing Tobacco Use: No. Initiated information on smoking cessation: Yes. 'Breaking Loose' booklet given: 05/03/19. - Substance & Tx. History. Hx Alcohol Use: Yes. Hx Substance Use: Yes. Substance Use Type: Alcohol, Prescribed (METHADONE). Hx Substance Use Treatment: Yes ([facility]). - Substances abused. Cocaine. Substance route: Inhalation. Frequency: Daily. Amount used: 20-30 dollars. Age of first use: 30. Date of last use: 05/02/19. Alcohol. Substance route: Oral. Frequency: 3-6 times per week (3X). Amount used: 1 pint of vodka/ 1 can of beer. Age of first use: 17. Date of last use: 05/03/19 Medical History: Remarkable for a history of anemia, bronchial asthma, hypertension, fibromyalgia, antecedent of surgery for excision of pilonidal cyst and a history of withdrawal-related seizures. Psychiatric History: Ms. Hylton reports a history of multiple psychiatric hospitalizations ([facility]) secondary to mood instability and suicide attempts. Her most recent hospitalization was at [facility] after a suicide attempt via self mutilation ( cutting). Diagnosis of Bipolar disorder. Patient is currently seen by Dr. Adamson in [facility] and reports being prescribed Seroquel 300mg BID + Remeron 45mg HS + Klonopin 2mg TID. Ms. Hylton reports medications compliance. At present patient denies suicidal/homicidal ideation but reports sleeping poorly. Physical/Sexual Abuse/Trauma History: denies. Mental Status Exam - Mental Status Exam Alert and Oriented to: Time, Place, Person Cognitive Function: Good Patient Appearance: Well Groomed Mood: Withdrawn, Irritable Affect: Mood Congruent Patient Behavior: Cooperative Speech Pattern: Appropriate Voice Loudness: Normal Thought Process: Goal Oriented Thought Disorder: Not Present Hallucinations: Denies Suicidal Ideation: Denies Homicidal Ideation: Denies Insight/Judgement: Poor Sleep: Poorly Appetite: Fair Muscle strength/Tone: Normal Gait/Station: Normal Psychiatric Findings - Problem List ([place] 1, 2,3) (1) Substance-induced sleep disorder Current Visit: Yes Status: Acute (2) Alcohol dependence with withdrawal, uncomplicated Current Visit: Yes Status: Acute (3) Cocaine dependence Current Visit: Yes Status: Acute Qualifiers: Substance use status: uncomplicated Qualified Code(s): F14.20 - Cocaine dependence, uncomplicated (4) Methadone maintenance therapy patient Current Visit: Yes Status: Chronic Comment: on 200 mg Methadone, dose pending verification (5) Bipolar II disorder Current Visit: Yes Status: Chronic Comment: As per self-report. - Initial Treatment Plan Initial Treatment Plan: Psychoeducation provided. Detoxification in progress. [facility] contated and able to speak to pharmacy staff. Patient picked up a 30 day prescription of the following medications on 04/17/19: Seroquel 300mg BID+ Remeron 45mg HS + Klonopin 2mg TID + Gabapentin 600mg TID. Will order Seroquel 300mg HS (morning dose of seroquel will held be given due to risk of hypotension) + Remeron 15mg HS. Benefits and side effects discussed. Verbal consent given.
[2019-05-04] MEDS: MAGNESIUM HYDROX 2400MG/30ML ORAL SUSPENSION 30 ML CUP PO PRN (10:20)
--- NOTE | 2019-05-04 10:49 | PN ---
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
[2019-05-04] MEDS ORDERED: FLU VACCINE QUAD 60 MCG/0.5 ML (MDV 19-20) IM ONE (12:00)
[2019-05-04] MEDS ORDERED: PNEUMOCOCCAL 23 VACCINE 0.5 ML VIAL IM ONE (12:00)
[2019-05-04] MEDS ORDERED: PNEUMOC 13-VAL CONJ-DIP CRM/PF 0.5 ML DISP.SYRIN IM ONE (12:00)
[2019-05-04 13:08] LABS: HEMATOCRIT 33.9 % (32.4-45.2); HEMOGLOBIN 11.3 GM/dL (10.7-15.3); MCH 30.8 pg (25.7-33.7); MCHC 33.5 g/dl (32.0-36.0); MEAN PLT VOLUME 8.7 fl (7.5-11.1); PLATELET COUNT 207 K/MM3 (134-434); RBC 3.68 M/mm3 (3.60-5.2); RDW 14.4 % (11.6-15.6); WHITE BLOOD COUNT 3.9 K/mm3 (4.0-10.0)
[2019-05-04 13:09] LABS: PH,URINE 5.5 (5.0-8.0); URINE APPEARANCE CLEAR; URINE BILIRUBIN NEGATIVE (NEGATIVE); URINE COLOR YELLOW; URINE GLUCOSE (UA) NEGATIVE (NEGATIVE); URINE KETONE NEGATIVE (NEGATIVE); URINE LEUK ESTERASE NEGATIVE (NEGATIVE); URINE NITRITE NEGATIVE (NEGATIVE); URINE PROTEIN NEGATIVE (NEGATIVE); URINE UROBILINOGEN 0.2 mg/dL (0.2-1.0)
[2019-05-04 13:24] LABS: ALBUMIN 3.5 g/dl (3.4-5.0); BILIRUBIN,TOTAL 0.3 mg/dL (0.2-1); BLOOD UREA NITROGEN 11.7 mg/dL (7-18); CALCIUM 8.8 mg/dL (8.5-10.1); CREATININE 0.9 mg/dL (0.55-1.3)
[2019-05-04] MEDS: SODIUM CHLORIDE NASAL SPRAY 44 ML BOTTLE NS SCH ×2 (13:43→22:20)
[2019-05-04] MEDS: guaiFENesin 600 MG TABLET.ER (FP) PO SCH ×2 (13:44→22:19)
[2019-05-04] MEDS: NICOTINE POLACRILEX 4 MG GUM BUC PRN ×3 (13:57→22:17)
--- NOTE | 2019-05-04 14:06 | EKG ---
Test Reason : Blood Pressure : / mmHG Vent. Rate : 054 BPM Atrial Rate : 054 BPM P-R Int : 112 ms QRS Dur : 096 ms QT Int : 522 ms P-R-T Axes : 040 062 059 degrees QTc Int : 495 ms SINUS BRADYCARDIA PROLONGED QT ABNORMAL ECG WHEN COMPARED WITH ECG OF 03-MAY-2017 23:07, NO SIGNIFICANT CHANGE WAS FOUND Confirmed by FELICITY CH MD ([id number]) on 05/04/2019 2:06:14 PM Referred By: Confirmed By:FELICITY CH MD
[2019-05-04] MEDS ORDERED: QUEtiapine FUMARATE 100 MG TABLET (FP) ONE (22:02)
[2019-05-04] MEDS: THIAMINE HCL 100 MG TABLET (FP) PO SCH (22:19)
[2019-05-04] MEDS: QUEtiapine FUMARATE 300 MG TABLET PO SCH (22:19)
[2019-05-04] MEDS: MIRTAZAPINE 15 MG TABLET (FP) PO SCH (22:19)
[2019-05-04] MEDS: MELATONIN 5 MG TABLETS PO SCH (22:19)
[2019-05-05] MEDS: NICOTINE POLACRILEX 4 MG GUM BUC PRN ×4 (03:53→18:28)
[2019-05-05] MEDS: METHOCARBAMOL 500 MG TABLET PO PRN (03:53)
[2019-05-05] MEDS: chlordiazePOXIDE HCL 10 MG CAPSULE PO PRN ×3 (03:53→18:28)
[2019-05-05] MEDS: METHADONE HCL 40 MG DISPERSABLE TABLET PO SCH (05:35)
[2019-05-05] MEDS: chlordiazePOXIDE 5 MG CAPSULE PO SCH ×3 (05:35→22:34)
[2019-05-05] MEDS: hydrOXYzine PAMOATE 25 MG CAPSULE (FP) PO SCH ×5 (05:35→22:34)
[2019-05-05] MEDS: SODIUM CHLORIDE NASAL SPRAY 44 ML BOTTLE NS SCH ×2 (09:42→22:35)
[2019-05-05] MEDS: PRENATAL VITAMINS W/ FOLIC ACID TABLET (FP) PO SCH (09:43)
[2019-05-05] MEDS: guaiFENesin 600 MG TABLET.ER (FP) PO SCH ×2 (09:43→22:35)
[2019-05-05] MEDS: levETIRAcetam 500 MG TABLET (FP) PO SCH ×2 (09:43→22:34)
[2019-05-05] MEDS: NICOTINE 21 MG/24 HOURS TOPICAL PATCH TD SCH (09:43)
[2019-05-05] MEDS: BUDESONIDE/FORMETEROL FUMARATE 160/4.5 mcg INHALER IH SCH ×2 (09:44→22:33)
--- NOTE | 2019-05-05 10:57 | EKG ---
Test Reason : Blood Pressure : / mmHG Vent. Rate : 064 BPM Atrial Rate : 064 BPM P-R Int : 122 ms QRS Dur : 084 ms QT Int : 424 ms P-R-T Axes : 042 056 045 degrees QTc Int : 437 ms NORMAL SINUS RHYTHM NORMAL ECG WHEN COMPARED WITH ECG OF 03-MAY-2019 18:35, QT HAS SHORTENED Confirmed by JERRY JONES MD ([id number]) on 05/05/2019 10:56:43 AM Referred By: GUERITA Confirmed By:JERRY JONES MD
[2019-05-05] MEDS: MAG HYDROX/AL HYDROX/SIMETH 30 ML UNIT-DOSE CUP PO PRN ×2 (11:57→18:28)
[2019-05-05] MEDS ORDERED: COLLOIDAL OATMEAL 1 BAR EACH TP PRN (12:53)
--- NOTE | 2019-05-05 14:26 | PN ---
[facility] CIWA - CIWA Score Nausea/Vomitin-Mild Nausea/No Vomiting Muscle Tremors: 1-None Visible, but [place] Anxiety: 2 Agitation: 2 Paroxysmal Sweats: No Perspiration Orientation: 0-Oriented Tacttile Disturbances: 1-Very Mild Itch/Numbness Auditory Disturbances: 0-None Visual Disturbances: 0-None Headache: 1-Very Mild CIWA-Ar Total Score: 8 BHS Progress Note (SOAP) Subjective: alert,irritable,anxious,interrupted sleep,pain in the body Objective: 05/05/19 14:24 Vital Signs Temperature 98.2 F 05/05/19 08:37 Pulse Rate 70 05/05/19 08:37 Respiratory Rate 16 05/05/19 08:37 Blood Pressure 102/63 05/05/19 08:37 O2 Sat by Pulse Oximetry (%) Laboratory Last Values WBC 3.9 K/mm3 (4.0-10.0) L 05/04/19 09:00 RBC 3.68 M/mm3 (3.60-5.2) 05/04/19 09:00 Hgb 11.3 GM/dL (10.7-15.3) 05/04/19 09:00 Hct 33.9 % (32.4-45.2) 05/04/19 09:00 MCV 92.0 fl (80-96) 05/04/19 09:00 MCH 30.8 pg (25.7-33.7) 05/04/19 09:00 MCHC 33.5 g/dl (32.0-36.0) 05/04/19 09:00 RDW 14.4 % (11.6-15.6) 05/04/19 09:00 Plt Count 207 K/MM3 (134-434) 05/04/19 09:00 MPV 8.7 fl (7.5-11.1) 05/04/19 09:00 Sodium 140 mmol/L (136-145) 05/04/19 09:00 Potassium 4.0 mmol/L (3.5-5.1) 05/04/19 09:00 Chloride 108 mmol/L (98-107) H 05/04/19 09:00 Carbon Dioxide 27 mmol/L (21-32) 05/04/19 09:00 Anion Gap 5 MMOL/L (8-16) L 05/04/19 09:00 BUN 11.7 mg/dL (7-18) 05/04/19 09:00 Creatinine 0.9 mg/dL (0.55-1.3) 05/04/19 09:00 Est GFR (CKD-EPI)AfAm 92.05 05/04/19 09:00 Est GFR (CKD-EPI)NonAf 79.42 05/04/19 09:00 Random Glucose 116 mg/dL (74-106) H 05/04/19 09:00 Calcium 8.8 mg/dL (8.5-10.1) 05/04/19 09:00 Total Bilirubin 0.3 mg/dL (0.2-1) 05/04/19 09:00 AST 23 U/L (15-37) 05/04/19 09:00 ALT 50 U/L (13-61) 05/04/19 09:00 Alkaline Phosphatase 48 U/L (45-117) 05/04/19 09:00 Total Protein 7.0 g/dl (6.4-8.2) 05/04/19 09:00 Albumin 3.5 g/dl (3.4-5.0) 05/04/19 09:00 Urine Color Yellow 05/04/19 09:20 Urine Appearance Clear 05/04/19 09:20 Urine pH 5.5 (5.0-8.0) 05/04/19 09:20 Ur Specific [place] 1.014 (1.010-1.035) 05/04/19 09:20 Urine Protein Negative (NEGATIVE) 05/04/19 09:20 Urine Glucose (UA) Negative (NEGATIVE) 05/04/19 09:20 Urine Ketones Negative (NEGATIVE) 05/04/19 09:20 Urine Blood Negative (NEGATIVE) 05/04/19 09:20 Urine Nitrite Negative (NEGATIVE) 05/04/19 09:20 Urine Bilirubin Negative (NEGATIVE) 05/04/19 09:20 Urine Urobilinogen 0.2 mg/dL (0.2-1.0) 05/04/19 09:20 Ur Leukocyte Esterase Negative (NEGATIVE) 05/04/19 09:20 RPR Titer Nonreactive (NONREACTIVE) 05/04/19 09:00 Assessment: 05/05/19 14:25 withdrawal symptom Plan: continue detox librium regimen,continue methadone 200 mgs po daily maintenance,close monitoring
[2019-05-05] MEDS: MAGNESIUM HYDROX 2400MG/30ML ORAL SUSPENSION 30 ML CUP PO PRN (14:39)
[2019-05-05] MEDS: THIAMINE HCL 100 MG TABLET (FP) PO SCH (22:34)
[2019-05-05] MEDS: MELATONIN 5 MG TABLETS PO SCH (22:34)
[2019-05-05] MEDS: MIRTAZAPINE 15 MG TABLET (FP) PO SCH (22:35)
[2019-05-05] MEDS: QUEtiapine FUMARATE 300 MG TABLET PO SCH (22:35)
[2019-05-06] MEDS: chlordiazePOXIDE HCL 10 MG CAPSULE PO PRN ×2 (03:21→17:11)
[2019-05-06] MEDS: hydrOXYzine PAMOATE 25 MG CAPSULE (FP) PO SCH ×5 (05:57→22:57)
[2019-05-06] MEDS: METHADONE HCL 40 MG DISPERSABLE TABLET PO SCH (05:58)
[2019-05-06] MEDS: chlordiazePOXIDE HCL 10 MG CAPSULE PO SCH ×3 (05:59→22:56)
[2019-05-06] MEDS: NICOTINE POLACRILEX 4 MG GUM BUC PRN ×5 (06:01→20:00)
[2019-05-06] MEDS: MAG HYDROX/AL HYDROX/SIMETH 30 ML UNIT-DOSE CUP PO PRN ×2 (09:02→17:09)
[2019-05-06] MEDS: BUDESONIDE/FORMETEROL FUMARATE 160/4.5 mcg INHALER IH SCH ×2 (10:29→22:58)
[2019-05-06] MEDS: SODIUM CHLORIDE NASAL SPRAY 44 ML BOTTLE NS SCH ×2 (10:29→22:57)
[2019-05-06] MEDS: guaiFENesin 600 MG TABLET.ER (FP) PO SCH ×2 (10:30→22:57)
[2019-05-06] MEDS: levETIRAcetam 500 MG TABLET (FP) PO SCH ×2 (10:30→22:56)
[2019-05-06] MEDS: FAMOTIDINE 20 MG TABLET PO SCH (10:30)
[2019-05-06] MEDS: PRENATAL VITAMINS W/ FOLIC ACID TABLET (FP) PO SCH (10:30)
[2019-05-06] MEDS: NICOTINE 21 MG/24 HOURS TOPICAL PATCH TD SCH (10:30)
--- NOTE | 2019-05-06 12:59 | PN ---
[facility] CIWA - CIWA Score Nausea/Vomitin-No Nausea/No Vomiting Muscle Tremors: None Anxiety: 2 Agitation: 0-Normal Activity Paroxysmal Sweats: 2 Orientation: 0-Oriented Tacttile Disturbances: 0-None Auditory Disturbances: 0-None Visual Disturbances: 0-None Headache: 0-None Present CIWA-Ar Total Score: 4 BHS Progress Note (SOAP) Subjective: c/o mild withdrawal symptoms. Objective: 05/06/19 12:58 Vital Signs 05/06/19 05/06/19 06:36 08:49 Temperature 97.8 F 97.8 F Pulse Rate 73 73 Respiratory 18 18 Rate Blood Pressure 99/63 116/69 Laboratory Last Values WBC 3.9 K/mm3 (4.0-10.0) L 05/04/19 09:00 RBC 3.68 M/mm3 (3.60-5.2) 05/04/19 09:00 Hgb 11.3 GM/dL (10.7-15.3) 05/04/19 09:00 Hct 33.9 % (32.4-45.2) 05/04/19 09:00 MCV 92.0 fl (80-96) 05/04/19 09:00 MCH 30.8 pg (25.7-33.7) 05/04/19 09:00 MCHC 33.5 g/dl (32.0-36.0) 05/04/19 09:00 RDW 14.4 % (11.6-15.6) 05/04/19 09:00 Plt Count 207 K/MM3 (134-434) 05/04/19 09:00 MPV 8.7 fl (7.5-11.1) 05/04/19 09:00 Sodium 140 mmol/L (136-145) 05/04/19 09:00 Potassium 4.0 mmol/L (3.5-5.1) 05/04/19 09:00 Chloride 108 mmol/L (98-107) H 05/04/19 09:00 Carbon Dioxide 27 mmol/L (21-32) 05/04/19 09:00 Anion Gap 5 MMOL/L (8-16) L 05/04/19 09:00 BUN 11.7 mg/dL (7-18) 05/04/19 09:00 Creatinine 0.9 mg/dL (0.55-1.3) 05/04/19 09:00 Est GFR (CKD-EPI)AfAm 92.05 05/04/19 09:00 Est GFR (CKD-EPI)NonAf 79.42 05/04/19 09:00 Random Glucose 116 mg/dL (74-106) H 05/04/19 09:00 Calcium 8.8 mg/dL (8.5-10.1) 05/04/19 09:00 Total Bilirubin 0.3 mg/dL (0.2-1) 05/04/19 09:00 AST 23 U/L (15-37) 05/04/19 09:00 ALT 50 U/L (13-61) 05/04/19 09:00 Alkaline Phosphatase 48 U/L (45-117) 05/04/19 09:00 Total Protein 7.0 g/dl (6.4-8.2) 05/04/19 09:00 Albumin 3.5 g/dl (3.4-5.0) 05/04/19 09:00 Urine Color Yellow 05/04/19 09:20 Urine Appearance Clear 05/04/19 09:20 Urine pH 5.5 (5.0-8.0) 05/04/19 09:20 Ur Specific [place] 1.014 (1.010-1.035) 05/04/19 09:20 Urine Protein Negative (NEGATIVE) 05/04/19 09:20 Urine Glucose (UA) Negative (NEGATIVE) 05/04/19 09:20 Urine Ketones Negative (NEGATIVE) 05/04/19 09:20 Urine Blood Negative (NEGATIVE) 05/04/19 09:20 Urine Nitrite Negative (NEGATIVE) 05/04/19 09:20 Urine Bilirubin Negative (NEGATIVE) 05/04/19 09:20 Urine Urobilinogen 0.2 mg/dL (0.2-1.0) 05/04/19 09:20 Ur Leukocyte Esterase Negative (NEGATIVE) 05/04/19 09:20 RPR Titer Nonreactive (NONREACTIVE) 05/04/19 09:00 Labs noted. Assessment: 05/06/19 12:59 AOX3, in no acute respiratory distress. Full ROM, ambulating in the unit. Withdrawal symptoms. For d/c tomorrow. Plan: continue detox. D/C in AM.
[2019-05-06] MEDS ORDERED: QUEtiapine FUMARATE 100 MG TABLET (FP) ONE (22:19)
[2019-05-06] MEDS: MIRTAZAPINE 15 MG TABLET (FP) PO SCH (22:56)
[2019-05-06] MEDS: THIAMINE HCL 100 MG TABLET (FP) PO SCH (22:57)
[2019-05-06] MEDS: MELATONIN 5 MG TABLETS PO SCH (22:57)
[2019-05-06] MEDS: QUEtiapine FUMARATE 300 MG TABLET PO SCH (22:57)
[2019-05-07] MEDS ORDERED: chlordiazePOXIDE HCL 10 MG CAPSULE PO ONE (05:00)
[2019-05-07] MEDS: hydrOXYzine PAMOATE 25 MG CAPSULE (FP) PO SCH ×3 (06:14→13:02)
[2019-05-07] MEDS: METHADONE HCL 40 MG DISPERSABLE TABLET PO SCH (06:14)
[2019-05-07] MEDS: METHOCARBAMOL 500 MG TABLET PO PRN (06:15)
[2019-05-07] MEDS: NICOTINE POLACRILEX 4 MG GUM BUC PRN ×3 (06:15→13:01)
[2019-05-07] MEDS: MAG HYDROX/AL HYDROX/SIMETH 30 ML UNIT-DOSE CUP PO PRN ×2 (07:14→13:00)
[2019-05-07] MEDS: levETIRAcetam 500 MG TABLET (FP) PO SCH (10:07)
[2019-05-07] MEDS: PRENATAL VITAMINS W/ FOLIC ACID TABLET (FP) PO SCH (10:07)
[2019-05-07] MEDS: guaiFENesin 600 MG TABLET.ER (FP) PO SCH (10:07)
[2019-05-07] MEDS: FAMOTIDINE 20 MG TABLET PO SCH (10:08)
[2019-05-07] MEDS: NICOTINE 21 MG/24 HOURS TOPICAL PATCH TD SCH (10:08)
[2019-05-07] MEDS: SODIUM CHLORIDE NASAL SPRAY 44 ML BOTTLE NS SCH (10:08)
[2019-05-07] MEDS: BUDESONIDE/FORMETEROL FUMARATE 160/4.5 mcg INHALER IH SCH (10:09)
--- NOTE | 2019-05-07 12:57 | DS ---
[facility] Detox Discharge Summary Admission Date: 05/03/19 Discharge Date: 05/07/19 - History Present History: Alcohol Dependence Additional Comments: 43 years old female admitted on 05/03/19 for alcohol withdrawal sx management treating with librium detox regiment Ms Hylton has completed the librum regiment and is tolerated well seen by psychiatrist resume seroquel and remeron alert oriented x 3 cardiac s1s2 regular rate rhythm respiratory clear lungs bilaterally on auscultation extremities full range of motion patient was doing well through out the detox attending behavior and psychosocial therapies groups and meetings discuss own feeling and share and encourage others to stay sober Pertinent Past History: time for discharge 35 minutes - Physical Exam Results Vital Signs: Vital Signs Temperature 98.8 F 05/07/19 08:40 Pulse Rate 75 05/07/19 08:40 Respiratory Rate 18 05/07/19 08:40 Blood Pressure 102/58 L 05/07/19 08:40 O2 Sat by Pulse Oximetry (%) Pertinent Admission Physical Exam Findings: alcohol withdrawal Laboratory Last Values WBC 3.9 K/mm3 (4.0-10.0) L 05/04/19 09:00 RBC 3.68 M/mm3 (3.60-5.2) 05/04/19 09:00 Hgb 11.3 GM/dL (10.7-15.3) 05/04/19 09:00 Hct 33.9 % (32.4-45.2) 05/04/19 09:00 MCV 92.0 fl (80-96) 05/04/19 09:00 MCH 30.8 pg (25.7-33.7) 05/04/19 09:00 MCHC 33.5 g/dl (32.0-36.0) 05/04/19 09:00 RDW 14.4 % (11.6-15.6) 05/04/19 09:00 Plt Count 207 K/MM3 (134-434) 05/04/19 09:00 MPV 8.7 fl (7.5-11.1) 05/04/19 09:00 Sodium 140 mmol/L (136-145) 05/04/19 09:00 Potassium 4.0 mmol/L (3.5-5.1) 05/04/19 09:00 Chloride 108 mmol/L (98-107) H 05/04/19 09:00 Carbon Dioxide 27 mmol/L (21-32) 05/04/19 09:00 Anion Gap 5 MMOL/L (8-16) L 05/04/19 09:00 BUN 11.7 mg/dL (7-18) 05/04/19 09:00 Creatinine 0.9 mg/dL (0.55-1.3) 05/04/19 09:00 Est GFR (CKD-EPI)AfAm 92.05 05/04/19 09:00 Est GFR (CKD-EPI)NonAf 79.42 05/04/19 09:00 Random Glucose 116 mg/dL (74-106) H 05/04/19 09:00 Calcium 8.8 mg/dL (8.5-10.1) 05/04/19 09:00 Total Bilirubin 0.3 mg/dL (0.2-1) 05/04/19 09:00 AST 23 U/L (15-37) 05/04/19 09:00 ALT 50 U/L (13-61) 05/04/19 09:00 Alkaline Phosphatase 48 U/L (45-117) 05/04/19 09:00 Total Protein 7.0 g/dl (6.4-8.2) 05/04/19 09:00 Albumin 3.5 g/dl (3.4-5.0) 05/04/19 09:00 Urine Color Yellow 05/04/19:20 Urine Appearance Clear 05/04/19 09:20 Urine pH 5.5 (5.0-8.0) 05/04/19 09:20 Ur Specific [place] 1.014 (1.010-1.035) 05/04/19 09:20 Urine Protein Negative (NEGATIVE) 05/04/19 09:20 Urine Glucose (UA) Negative (NEGATIVE) 05/04/19 09:20 Urine Ketones Negative (NEGATIVE) 05/04/19:20 Urine Blood Negative (NEGATIVE) 05/04/19:20 Urine Nitrite Negative (NEGATIVE) 05/04/19:20 Urine Bilirubin Negative (NEGATIVE) 05/04/19 09:20 Urine Urobilinogen 0.2 mg/dL (0.2-1.0) 05/04/19 09:20 Ur Leukocyte Esterase Negative (NEGATIVE) 05/04/19 09:20 RPR Titer Nonreactive (NONREACTIVE) 05/04/19 09:00 Vital Signs Temperature 98.8 F 05/07/19 08:40 Pulse Rate 75 05/07/19 08:40 Respiratory Rate 18 05/07/19 08:40 Blood Pressure 102/58 L 05/07/19 08:40 O2 Sat by Pulse Oximetry (%) lab noted - Treatment Hospital Course: Detox Protocol Followed, Detoxed Safely, Responded well, Discharged Condition Good, Rehab Referral Accepted Patient has Accepted [facility] Referral [facility] - Medication Discharge Medications: Ambulatory Orders hydrOXYzine PAMOATE [Vistaril -] 50 mg PO DAILY 05/03/17 Albuterol Sulfate Inhaler - [Ventolin HFA Inhaler -] 2 puff IH Q4H PRN #1 inhaler 05/18/17 Budesonide/Formeterol Fumarate [SYMBICORT 160/4.5mcg -] 1 puff IH BID #1 inhaler 05/18/17 Spiriva Respimat 1 puff PO BID 09/23/18 Mirtazapine [Remeron -] 45 mg PO HS #90 tablet 10/13/18 Quetiapine Fumarate [Seroquel -] 300 mg PO HS #30 tablet 10/13/18 levETIRAcetam [Keppra -] 500 mg PO BID #60 tablet 10/13/18 clonazePAM [Klonopin -] 0.5 mg PO TID #21 tablet MDD 1.5MG 10/14/18 - Diagnosis (1) Seizure Current Visit: Yes Status: Chronic (2) Alcohol dependence with withdrawal, uncomplicated Current Visit: Yes Status: Acute (3) Asthma Current Visit: Yes Status: Chronic Qualifiers: Asthma severity: mild Asthma persistence: intermittent Asthma complication type: with status asthmaticus Qualified Code(s): J45.22 - Mild intermittent asthma with status asthmaticus (4) HCV (hepatitis C virus) Current Visit: Yes Status: Chronic Qualifiers: Viral hepatitis chronicity: carrier Qualified Code(s): B18.2 - Chronic viral hepatitis C (5) Methadone maintenance therapy patient Current Visit: Yes Status: Chronic (6) Nicotine dependence Current Visit: Yes Status: Acute Qualifiers: Nicotine product type: cigarettes Substance use status: in withdrawal Qualified Code(s): F17.213 - Nicotine dependence, cigarettes, with withdrawal (7) HTN (hypertension) Current Visit: Yes Status: Chronic Qualifiers: Hypertension type: essential hypertension Qualified Code(s): I10 - Essential (primary) hypertension (8) Opioid dependence on agonist therapy Current Visit: Yes Status: Acute - AMA Did Patient Leave Against Medical Advice: No CIWA Score - CIWA Score Nausea/Vomitin-No Nausea/No Vomiting Muscle Tremors: None Anxiety: 1-Mildly Anxious Agitation: 0-Normal Activity Paroxysmal Sweats: 1-Minimal Palms Moist Orientation: 0-Oriented Tacttile Disturbances: 0-None Auditory Disturbances: 0-None Visual Disturbances: 0-None Headache: 0-None Present CIWA-Ar Total Score: 2
[2019-05-07 13:34] VITALS: BP 116/65; PULSE 77; TEMP 98.7
== END 2019-05-07 14:18 | disposition other institution (70) | DRG 773 ==
LOC: YASAS 13:51 → Y3N 18:37
PROVIDERS: ADMIT Allergy & Immunology; ATTEND Allergy & Immunology
PROC: HZ2ZZZZ Detoxification Services for Substance Abuse Treatment (ICD-10-PCS; principal; 2019-05-03)
DX: F10.230 Alcohol dependence with withdrawal, uncomplicated (principal); F11.20 Opioid dependence, uncomplicated; F14.20 Cocaine dependence, uncomplicated; F17.213 Nicotine dependence, cigarettes, with withdrawal; F19.282 Other psychoactive substance dependence with psychoactive substance-induced sleep disorder; D64.9 Anemia, unspecified; J45.22 Mild intermittent asthma with status asthmaticus; I10 Essential (primary) hypertension; G40.509 Epileptic seizures related to external causes, not intractable, without status epilepticus; B18.2 Chronic viral hepatitis C; M79.7 Fibromyalgia; Z88.5 Allergy status to narcotic agent; Z88.8 Allergy status to other drugs, medicaments and biological substances
CPT/HCPCS: 36415; 80053; 80177; 81003; 85027; 86593; 90732; 93005; 93010; G0009; Q0162; Q2036

== ENCOUNTER 2021-04-21 15:05 | Inpatient (IN) | payer OTHER ==
[2021-04-21 15:38] VITALS: BMI 30.7
[2021-04-21] MEDS ORDERED: MAGNESIUM CITRATE 300 ML BOTTLE PO PRN (16:07)
[2021-04-21] MEDS ORDERED: BISMUTH SUBSALICYLATE 524 MG/30 ML PO PRN (16:07)
[2021-04-21] MEDS ORDERED: MENTHOL/PHENOL 1 EACH UD MM PRN (16:07)
[2021-04-21] MEDS ORDERED: ONDANSETRON *ODT* 4 MG TABLET SL PRN (16:07)
[2021-04-21] MEDS ORDERED: ACETAMINOPHEN 325 MG TABLET (FP) PO PRN (16:07)
[2021-04-21] MEDS ORDERED: MAG HYDROX/AL HYDROX/SIMETH 30 ML UNIT-DOSE CUP PO PRN (16:07)
[2021-04-21] MEDS ORDERED: LOPERAMIDE HCL 2 MG CAPSULE PO PRN (16:07)
[2021-04-21] MEDS ORDERED: diazePAM 5 MG TABLET PO PRN (16:07)
[2021-04-21] MEDS ORDERED: MAGNESIUM HYDROX 2400MG/30ML ORAL SUSPENSION 30 ML CUP PO PRN (16:07)
[2021-04-21] MEDS ORDERED: SODIUM CHLORIDE FOR INHALATION 3 ML VIAL.NEB IH PRN (16:12)
[2021-04-21] MEDS: hydrOXYzine PAMOATE 25 MG CAPSULE (FP) PO SCH ×2 (18:56→22:19)
[2021-04-21] MEDS: METHOCARBAMOL 500 MG TABLET PO PRN ×2 (18:56→22:19)
[2021-04-21] MEDS: IBUPROFEN 400 MG TABLET (FP) PO PRN (18:57)
[2021-04-21] MEDS: diazePAM 5 MG TABLET PO SCH ×2 (18:58→22:19)
[2021-04-21] MEDS: NICOTINE 21 MG/24 HOURS TOPICAL PATCH TD SCH (19:12)
[2021-04-21] MEDS ORDERED: MELATONIN 5 MG TABLETS PO SCH (22:00)
[2021-04-21] MEDS: THIAMINE HCL 100 MG TABLET (FP) PO SCH (22:19)
[2021-04-21] MEDS: BUDESONIDE/FORMETEROL FUMARATE 160/4.5 mcg INHALER IH SCH (22:24)
[2021-04-22] MEDS: ACETAMINOPHEN 325 MG TABLET (FP) PO PRN (01:38)
[2021-04-22] MEDS: NICOTINE POLACRILEX 2 MG GUM BUC PRN ×3 (01:38→18:46)
[2021-04-22] MEDS: IBUPROFEN 400 MG TABLET (FP) PO PRN ×3 (03:16→17:55)
[2021-04-22] MEDS: ALBUTEROL SO4 HFA INHALER IH PRN (03:34)
[2021-04-22] MEDS: diazePAM 5 MG TABLET PO SCH ×4 (04:59→22:22)
[2021-04-22] MEDS: hydrOXYzine PAMOATE 25 MG CAPSULE (FP) PO SCH (04:59)
[2021-04-22] MEDS: NICOTINE 10 MG CARTRIDGE (INHALER) IH PRN ×3 (05:00→21:24)
[2021-04-22 09:24] LABS: HEMOGLOBIN 11.6 GM/dL (10.7-15.3); MCH 31.5 pg (25.7-33.7); MCHC 34.2 g/dl (32.0-36.0); MEAN CELL VOLUME 92.4 fl (80-96); MEAN PLT VOLUME 8.6 fl (7.5-11.1); PLATELET COUNT 205 10^3/uL (134-434); RBC 3.68 M/mm3 (3.60-5.2); RDW 14.5 % (11.6-15.6)
[2021-04-22 09:32] LABS: ALBUMIN 3.2 g/dl (3.4-5.0); BLOOD UREA NITROGEN 9.5 mg/dL (7-18)
[2021-04-22 09:34] LABS: CREATININE 0.9 mg/dL (0.55-1.3)
[2021-04-22 09:36] LABS: BILIRUBIN,TOTAL 0.1 mg/dL (0.2-1); TOT PROT 7.1 g/dl (6.4-8.2)
[2021-04-22] MEDS ORDERED: methaDONE HCL 10 MG TABLET ONE (09:46)
[2021-04-22] MEDS ORDERED: methaDONE HCL 40 MG DISPERSABLE TABLET ONE (09:47)
[2021-04-22] MEDS ORDERED: methaDONE HCL 40 MG DISPERSABLE TABLET PO ONE (10:00)
[2021-04-22] MEDS: PRENATAL VITAMINS W/ FOLIC ACID TABLET (FP) PO SCH (10:09)
[2021-04-22] MEDS: hydrOXYzine PAMOATE 25 MG CAPSULE (FP) PO PRN (10:10)
[2021-04-22] MEDS: levETIRAcetam 500 MG TABLET (FP) PO SCH ×2 (10:10→22:18)
[2021-04-22] MEDS: METHOCARBAMOL 500 MG TABLET PO PRN (10:10)
[2021-04-22] MEDS: BUDESONIDE/FORMETEROL FUMARATE 160/4.5 mcg INHALER IH SCH ×2 (10:12→23:23)
[2021-04-22] MEDS: TIOTROPIUM BROMIDE 2.5 MCG (SPIRIVA) RESPIMAT INHALER IH SCH (10:12)
[2021-04-22] MEDS: NICOTINE 21 MG/24 HOURS TOPICAL PATCH TD SCH (10:14)
[2021-04-22] MEDS ORDERED: COLLOIDAL OATMEAL 1 BAR EACH TP PRN (10:21)
[2021-04-22] MEDS: AMOXICILLIN 500 MG CAPSULE (FP) PO SCH ×2 (11:16→22:19)
[2021-04-22] MEDS: LIDOCAINE 5% TOPICAL PATCH TP SCH (11:17)
[2021-04-22] MEDS: MINERAL OIL/PETROLAT/WATER TOPICAL CREAM 113 GM JAR TP SCH ×2 (11:45→23:23)
[2021-04-22] MEDS: DOCUSATE SODIUM 100 MG CAPSULE (FP) PO SCH ×2 (13:15→22:18)
[2021-04-22] MEDS: SODIUM CHLORIDE NASAL SPRAY 44 ML BOTTLE NS SCH ×2 (13:15→22:19)
[2021-04-22 15:23] LABS: HIV INTERPRETATION NEGATIVE (NEGATIVE)
[2021-04-22] MEDS: FAMOTIDINE 20 MG TABLET PO SCH (22:17)
[2021-04-22] MEDS: MIRTAZAPINE 15 MG TABLET (FP) PO SCH (22:18)
[2021-04-22] MEDS: THIAMINE HCL 100 MG TABLET (FP) PO SCH (22:18)
[2021-04-22] MEDS: LIDOCAINE PATCH REMOVAL MC SCH (22:19)
[2021-04-22] MEDS: QUEtiapine FUMARATE 300 MG TABLET PO SCH (22:22)
[2021-04-23] MEDS: SUVOREXANT 10 MG TABLET PO PRN (02:34)
[2021-04-23] MEDS: NICOTINE POLACRILEX 2 MG GUM BUC PRN ×4 (02:35→12:38)
[2021-04-23] MEDS ORDERED: methaDONE HCL 10 MG TABLET ONE (04:35)
[2021-04-23] MEDS ORDERED: methaDONE HCL 40 MG DISPERSABLE TABLET ONE (04:36)
[2021-04-23] MEDS: DOCUSATE SODIUM 100 MG CAPSULE (FP) PO SCH ×3 (05:55→22:08)
[2021-04-23] MEDS: diazePAM 5 MG TABLET PO SCH ×3 (05:55→22:08)
[2021-04-23] MEDS: ACETAMINOPHEN 325 MG TABLET (FP) PO PRN (05:56)
[2021-04-23] MEDS: SODIUM CHLORIDE NASAL SPRAY 44 ML BOTTLE NS SCH ×3 (06:00→23:08)
[2021-04-23] MEDS ORDERED: methaDONE HCL 10 MG TABLET PO SCH (06:00)
[2021-04-23 08:10] LABS: SARS-CoV-2 NAA Not Detected (Not Detected)
[2021-04-23] MEDS: FAMOTIDINE 20 MG TABLET PO SCH ×2 (10:15→22:08)
[2021-04-23] MEDS: AMOXICILLIN 500 MG CAPSULE (FP) PO SCH ×2 (10:15→22:07)
[2021-04-23] MEDS: METHOCARBAMOL 500 MG TABLET PO PRN (10:15)
[2021-04-23] MEDS: MINERAL OIL/PETROLAT/WATER TOPICAL CREAM 113 GM JAR TP SCH (10:15)
[2021-04-23] MEDS: PRENATAL VITAMINS W/ FOLIC ACID TABLET (FP) PO SCH (10:15)
[2021-04-23] MEDS: levETIRAcetam 500 MG TABLET (FP) PO SCH ×2 (10:15→22:07)
[2021-04-23] MEDS: TIOTROPIUM BROMIDE 2.5 MCG (SPIRIVA) RESPIMAT INHALER IH SCH (10:16)
[2021-04-23] MEDS: BUDESONIDE/FORMETEROL FUMARATE 160/4.5 mcg INHALER IH SCH ×2 (10:16→23:05)
[2021-04-23] MEDS: LIDOCAINE 5% TOPICAL PATCH TP SCH (10:17)
[2021-04-23] MEDS: NICOTINE 21 MG/24 HOURS TOPICAL PATCH TD SCH (10:17)
[2021-04-23] MEDS: NICOTINE 10 MG CARTRIDGE (INHALER) IH PRN ×3 (10:19→18:54)
[2021-04-23] MEDS: IBUPROFEN 400 MG TABLET (FP) PO PRN ×2 (12:39→22:11)
[2021-04-23] MEDS: hydrOXYzine PAMOATE 25 MG CAPSULE (FP) PO PRN (18:53)
[2021-04-23] MEDS: THIAMINE HCL 100 MG TABLET (FP) PO SCH (22:07)
[2021-04-23] MEDS: MIRTAZAPINE 15 MG TABLET (FP) PO SCH (22:08)
[2021-04-23] MEDS: QUEtiapine FUMARATE 300 MG TABLET PO SCH (22:08)
[2021-04-24] MEDS: LIDOCAINE PATCH REMOVAL MC SCH ×2 (00:03→23:48)
[2021-04-24] MEDS: MINERAL OIL/PETROLAT/WATER TOPICAL CREAM 113 GM JAR TP SCH ×3 (00:03→23:48)
[2021-04-24] MEDS: NICOTINE POLACRILEX 2 MG GUM BUC PRN ×4 (01:31→16:43)
[2021-04-24] MEDS: SUVOREXANT 10 MG TABLET PO PRN (01:34)
[2021-04-24] MEDS ORDERED: methaDONE HCL 10 MG TABLET ONE (03:45)
[2021-04-24] MEDS ORDERED: methaDONE HCL 40 MG DISPERSABLE TABLET ONE (03:45)
[2021-04-24] MEDS: SODIUM CHLORIDE NASAL SPRAY 44 ML BOTTLE NS SCH ×3 (06:08→23:49)
[2021-04-24] MEDS: diazePAM 5 MG TABLET PO SCH ×2 (06:15→17:57)
[2021-04-24] MEDS: DOCUSATE SODIUM 100 MG CAPSULE (FP) PO SCH ×3 (06:15→22:10)
[2021-04-24] MEDS: ACETAMINOPHEN 325 MG TABLET (FP) PO PRN (06:22)
[2021-04-24] MEDS: LIDOCAINE 5% TOPICAL PATCH TP SCH (10:05)
[2021-04-24] MEDS: BUDESONIDE/FORMETEROL FUMARATE 160/4.5 mcg INHALER IH SCH ×2 (10:05→23:49)
[2021-04-24] MEDS: NICOTINE 21 MG/24 HOURS TOPICAL PATCH TD SCH (10:05)
[2021-04-24] MEDS: FAMOTIDINE 20 MG TABLET PO SCH ×2 (10:07→22:11)
[2021-04-24] MEDS: AMOXICILLIN 500 MG CAPSULE (FP) PO SCH ×2 (10:07→22:10)
[2021-04-24] MEDS: levETIRAcetam 500 MG TABLET (FP) PO SCH ×2 (10:07→22:10)
[2021-04-24] MEDS: ALBUTEROL SO4 HFA INHALER IH PRN (10:07)
[2021-04-24] MEDS: PRENATAL VITAMINS W/ FOLIC ACID TABLET (FP) PO SCH (10:07)
[2021-04-24] MEDS: METHOCARBAMOL 500 MG TABLET PO PRN ×2 (10:07→17:59)
[2021-04-24] MEDS: TIOTROPIUM BROMIDE 2.5 MCG (SPIRIVA) RESPIMAT INHALER IH SCH (10:08)
[2021-04-24] MEDS: NICOTINE 10 MG CARTRIDGE (INHALER) IH PRN ×3 (10:48→22:11)
[2021-04-24] MEDS: SENNOSIDES 8.6MG TABLET (FP) PO SCH (11:11)
[2021-04-24 14:49] LABS: INR 0.93 (0.83-1.09); PROTHROMBIN TIME (PATIENT) 10.7 SEC (9.7-13.0)
[2021-04-24] MEDS: IBUPROFEN 400 MG TABLET (FP) PO PRN (16:46)
[2021-04-24] MEDS: hydrOXYzine PAMOATE 25 MG CAPSULE (FP) PO PRN ×2 (17:56→22:10)
[2021-04-24] MEDS: THIAMINE HCL 100 MG TABLET (FP) PO SCH (22:10)
[2021-04-24] MEDS: MIRTAZAPINE 15 MG TABLET (FP) PO SCH (22:11)
[2021-04-24] MEDS: QUEtiapine FUMARATE 300 MG TABLET PO SCH (22:49)
[2021-04-25] MEDS: SUVOREXANT 10 MG TABLET PO PRN (01:15)
[2021-04-25] MEDS: NICOTINE POLACRILEX 2 MG GUM BUC PRN ×4 (01:16→11:26)
[2021-04-25] MEDS ORDERED: methaDONE HCL 40 MG DISPERSABLE TABLET ONE (03:51)
[2021-04-25] MEDS ORDERED: methaDONE HCL 10 MG TABLET ONE (03:51)
[2021-04-25] MEDS: DOCUSATE SODIUM 100 MG CAPSULE (FP) PO SCH (05:37)
[2021-04-25] MEDS: hydrOXYzine PAMOATE 25 MG CAPSULE (FP) PO PRN ×2 (05:37→10:17)
[2021-04-25] MEDS ORDERED: diazePAM 5 MG TABLET PO ONE (06:00)
[2021-04-25] MEDS: SODIUM CHLORIDE NASAL SPRAY 44 ML BOTTLE NS SCH (06:09)
[2021-04-25] MEDS: NICOTINE 10 MG CARTRIDGE (INHALER) IH PRN (06:55)
[2021-04-25] MEDS: ACETAMINOPHEN 325 MG TABLET (FP) PO PRN (06:56)
[2021-04-25 10:09] VITALS: BP 103/61; PULSE 73; TEMP 98.1
[2021-04-25] MEDS: levETIRAcetam 500 MG TABLET (FP) PO SCH (10:13)
[2021-04-25] MEDS: METHOCARBAMOL 500 MG TABLET PO PRN (10:13)
[2021-04-25] MEDS: PRENATAL VITAMINS W/ FOLIC ACID TABLET (FP) PO SCH (10:13)
[2021-04-25] MEDS: AMOXICILLIN 500 MG CAPSULE (FP) PO SCH (10:13)
[2021-04-25] MEDS: FAMOTIDINE 20 MG TABLET PO SCH (10:13)
[2021-04-25] MEDS: LIDOCAINE 5% TOPICAL PATCH TP SCH (10:14)
[2021-04-25] MEDS: MINERAL OIL/PETROLAT/WATER TOPICAL CREAM 113 GM JAR TP SCH (10:14)
[2021-04-25] MEDS: NICOTINE 21 MG/24 HOURS TOPICAL PATCH TD SCH (10:16)
[2021-04-25] MEDS: TIOTROPIUM BROMIDE 2.5 MCG (SPIRIVA) RESPIMAT INHALER IH SCH (10:16)
[2021-04-25] MEDS: BUDESONIDE/FORMETEROL FUMARATE 160/4.5 mcg INHALER IH SCH (10:16)
[2021-04-25] MEDS: SENNOSIDES 8.6MG TABLET (FP) PO SCH (11:15)
== END 2021-04-25 12:30 | disposition other institution (70) | DRG 773 ==
LOC: YASAS 15:05 → Y6N 17:58
PROVIDERS: ADMIT Allergy & Immunology; ATTEND Allergy & Immunology
PROC: HZ2ZZZZ Detoxification Services for Substance Abuse Treatment (ICD-10-PCS; principal; 2021-04-21)
DX: F10.230 Alcohol dependence with withdrawal, uncomplicated (principal); F11.20 Opioid dependence, uncomplicated; F13.230 Sedative, hypnotic or anxiolytic dependence with withdrawal, uncomplicated; F14.20 Cocaine dependence, uncomplicated; F17.210 Nicotine dependence, cigarettes, uncomplicated; F31.81 Bipolar II disorder; F19.280 Other psychoactive substance dependence with psychoactive substance-induced anxiety disorder; F19.282 Other psychoactive substance dependence with psychoactive substance-induced sleep disorder; G40.909 Epilepsy, unspecified, not intractable, without status epilepticus; J44.9 Chronic obstructive pulmonary disease, unspecified; J45.20 Mild intermittent asthma, uncomplicated; K59.03 Drug induced constipation; M79.7 Fibromyalgia; Z86.19 Personal history of other infectious and parasitic diseases; Z91.51 Personal history of suicidal behavior; Z88.8 Allergy status to other drugs, medicaments and biological substances
CPT/HCPCS: 36415; 80053; 80177; 81025; 82962; 85027; 85610; 86780; 87389; C9803; U0003; U0005

== ENCOUNTER 2021-04-25 12:57 | Inpatient (IN) | payer OTHER ==
[2021-04-25] MEDS ORDERED: MAGNESIUM CITRATE 300 ML BOTTLE PO PRN (14:26)
[2021-04-25] MEDS ORDERED: guaiFENesin 200 MG/10 ML 10 ML UNIT-DOSE CUPS PO PRN (14:26)
[2021-04-25] MEDS ORDERED: LOPERAMIDE HCL 2 MG CAPSULE PO PRN (14:26)
[2021-04-25] MEDS ORDERED: P-EPHED 60MG/TRIPROLIDI 2.5MG TABLET PO PRN (14:26)
[2021-04-25] MEDS ORDERED: SODIUM CHLORIDE NASAL SPRAY 44 ML BOTTLE NS PRN (14:29)
[2021-04-25] MEDS ORDERED: ALBUTEROL SO4 HFA INHALER IH PRN (15:04)
[2021-04-25] MEDS: ACETAMINOPHEN 325 MG TABLET (FP) PO PRN (17:04)
[2021-04-25] MEDS: MENTHOL/PHENOL 1 EACH UD MM PRN (17:06)
[2021-04-25] MEDS: hydrOXYzine PAMOATE 25 MG CAPSULE (FP) PO SCH ×2 (17:40→21:23)
[2021-04-25] MEDS: BUDESONIDE/FORMETEROL FUMARATE 160/4.5 mcg INHALER IH SCH (21:19)
[2021-04-25] MEDS: MIRTAZAPINE 15 MG TABLET (FP) PO SCH (21:19)
[2021-04-25] MEDS: THIAMINE HCL 100 MG TABLET (FP) PO SCH (21:20)
[2021-04-25] MEDS: QUEtiapine FUMARATE 300 MG TABLET PO SCH (21:20)
[2021-04-25] MEDS: LIDOCAINE PATCH REMOVAL MC SCH (21:20)
[2021-04-25] MEDS: levETIRAcetam 500 MG TABLET (FP) PO SCH (21:20)
[2021-04-25] MEDS: DOCUSATE SODIUM 100 MG CAPSULE (FP) PO SCH (21:20)
[2021-04-25] MEDS: MELATONIN 5 MG TABLETS PO SCH (21:20)
[2021-04-25] MEDS: NICOTINE POLACRILEX 4 MG GUM BUC PRN (21:51)
[2021-04-25] MEDS: COLLOIDAL OATMEAL 1 BAR EACH TP PRN (22:03)
[2021-04-26] MEDS: NICOTINE POLACRILEX 4 MG GUM BUC PRN ×7 (01:51→22:48)
[2021-04-26] MEDS: ACETAMINOPHEN 325 MG TABLET (FP) PO PRN ×2 (01:51→10:07)
[2021-04-26] MEDS ORDERED: methaDONE HCL 10 MG TABLET ONE (04:06)
[2021-04-26] MEDS ORDERED: methaDONE HCL 40 MG DISPERSABLE TABLET ONE (04:06)
[2021-04-26] MEDS ORDERED: methaDONE HCL 10 MG TABLET PO SCH (06:00)
[2021-04-26] MEDS: MENTHOL/PHENOL 1 EACH UD MM PRN ×4 (06:39→22:50)
[2021-04-26] MEDS: hydrOXYzine PAMOATE 25 MG CAPSULE (FP) PO SCH ×5 (06:43→22:47)
[2021-04-26] MEDS: levETIRAcetam 500 MG TABLET (FP) PO SCH ×2 (10:03→22:44)
[2021-04-26] MEDS: PRENATAL VITAMINS W/ FOLIC ACID TABLET (FP) PO SCH (10:03)
[2021-04-26] MEDS: NICOTINE 7 MG/24 HOURS TOPICAL PATCH TD SCH (10:04)
[2021-04-26] MEDS: TIOTROPIUM BROMIDE 2.5 MCG (SPIRIVA) RESPIMAT INHALER IH SCH (10:04)
[2021-04-26] MEDS: BUDESONIDE/FORMETEROL FUMARATE 160/4.5 mcg INHALER IH SCH ×2 (10:04→22:47)
[2021-04-26] MEDS: NICOTINE 10 MG CARTRIDGE (INHALER) IH PRN ×3 (10:05→22:48)
[2021-04-26] MEDS: LIDOCAINE 5% TOPICAL PATCH TP SCH (10:06)
[2021-04-26] MEDS: IBUPROFEN 400 MG TABLET (FP) PO PRN (17:17)
[2021-04-26] MEDS: QUEtiapine FUMARATE 300 MG TABLET PO SCH (22:44)
[2021-04-26] MEDS: MIRTAZAPINE 15 MG TABLET (FP) PO SCH (22:45)
[2021-04-26] MEDS: THIAMINE HCL 100 MG TABLET (FP) PO SCH (22:46)
[2021-04-26] MEDS: DOCUSATE SODIUM 100 MG CAPSULE (FP) PO SCH (22:46)
[2021-04-26] MEDS: MELATONIN 5 MG TABLETS PO SCH (22:47)
[2021-04-26] MEDS: LIDOCAINE PATCH REMOVAL MC SCH (23:31)
[2021-04-27] MEDS: NICOTINE POLACRILEX 4 MG GUM BUC PRN ×5 (02:58→22:14)
[2021-04-27] MEDS ORDERED: methaDONE HCL 10 MG TABLET ONE (03:28)
[2021-04-27] MEDS ORDERED: methaDONE HCL 40 MG DISPERSABLE TABLET ONE (03:29)
[2021-04-27] MEDS: NICOTINE 10 MG CARTRIDGE (INHALER) IH PRN ×3 (06:09→17:09)
[2021-04-27] MEDS: hydrOXYzine PAMOATE 25 MG CAPSULE (FP) PO SCH ×5 (06:10→22:12)
[2021-04-27] MEDS: MENTHOL/PHENOL 1 EACH UD MM PRN ×3 (06:13→22:12)
[2021-04-27] MEDS: TIOTROPIUM BROMIDE 2.5 MCG (SPIRIVA) RESPIMAT INHALER IH SCH (10:32)
[2021-04-27] MEDS: PRENATAL VITAMINS W/ FOLIC ACID TABLET (FP) PO SCH (10:32)
[2021-04-27] MEDS: BUDESONIDE/FORMETEROL FUMARATE 160/4.5 mcg INHALER IH SCH ×2 (10:32→22:13)
[2021-04-27] MEDS: NICOTINE 7 MG/24 HOURS TOPICAL PATCH TD SCH (10:33)
[2021-04-27] MEDS: LIDOCAINE 5% TOPICAL PATCH TP SCH (10:34)
[2021-04-27] MEDS: levETIRAcetam 500 MG TABLET (FP) PO SCH ×2 (10:35→22:12)
[2021-04-27] MEDS: IBUPROFEN 400 MG TABLET (FP) PO PRN ×2 (10:37→17:24)
[2021-04-27] MEDS: MAG HYDROX/AL HYDROX/SIMETH 30 ML UNIT-DOSE CUP PO PRN (17:22)
[2021-04-27] MEDS: LIDOCAINE PATCH REMOVAL MC SCH (22:00)
[2021-04-27] MEDS: MIRTAZAPINE 15 MG TABLET (FP) PO SCH (22:11)
[2021-04-27] MEDS: DOCUSATE SODIUM 100 MG CAPSULE (FP) PO SCH (22:11)
[2021-04-27] MEDS: QUEtiapine FUMARATE 300 MG TABLET PO SCH (22:11)
[2021-04-27] MEDS: THIAMINE HCL 100 MG TABLET (FP) PO SCH (22:12)
[2021-04-27] MEDS: MELATONIN 5 MG TABLETS PO SCH (23:07)
[2021-04-28] MEDS ORDERED: methaDONE HCL 40 MG DISPERSABLE TABLET ONE (02:54)
[2021-04-28] MEDS ORDERED: methaDONE HCL 10 MG TABLET ONE (02:54)
[2021-04-28] MEDS: hydrOXYzine PAMOATE 25 MG CAPSULE (FP) PO SCH ×5 (06:06→21:35)
[2021-04-28] MEDS: NICOTINE 10 MG CARTRIDGE (INHALER) IH PRN ×2 (06:07→14:09)
[2021-04-28] MEDS: IBUPROFEN 400 MG TABLET (FP) PO PRN ×2 (08:57→15:56)
[2021-04-28] MEDS: NICOTINE POLACRILEX 4 MG GUM BUC PRN ×4 (08:58→20:14)
[2021-04-28] MEDS: MENTHOL/PHENOL 1 EACH UD MM PRN (08:58)
[2021-04-28] MEDS: NICOTINE 7 MG/24 HOURS TOPICAL PATCH TD SCH (08:59)
[2021-04-28] MEDS: PRENATAL VITAMINS W/ FOLIC ACID TABLET (FP) PO SCH (08:59)
[2021-04-28] MEDS: levETIRAcetam 500 MG TABLET (FP) PO SCH ×2 (08:59→21:35)
[2021-04-28] MEDS: LIDOCAINE 5% TOPICAL PATCH TP SCH (09:00)
[2021-04-28] MEDS: BUDESONIDE/FORMETEROL FUMARATE 160/4.5 mcg INHALER IH SCH ×2 (09:00→21:34)
[2021-04-28] MEDS: TIOTROPIUM BROMIDE 2.5 MCG (SPIRIVA) RESPIMAT INHALER IH SCH (09:00)
[2021-04-28] MEDS: MAG HYDROX/AL HYDROX/SIMETH 30 ML UNIT-DOSE CUP PO PRN (10:21)
[2021-04-28] MEDS: COLLOIDAL OATMEAL 1 BAR EACH TP PRN (14:08)
[2021-04-28] MEDS: METHOCARBAMOL 500 MG TABLET PO PRN ×2 (14:08→21:35)
[2021-04-28] MEDS: MIRTAZAPINE 15 MG TABLET (FP) PO SCH (21:35)
[2021-04-28] MEDS: DOCUSATE SODIUM 100 MG CAPSULE (FP) PO SCH (21:35)
[2021-04-28] MEDS: MELATONIN 5 MG TABLETS PO SCH (21:35)
[2021-04-28] MEDS: QUEtiapine FUMARATE 300 MG TABLET PO SCH (21:35)
[2021-04-28] MEDS: SUVOREXANT 10 MG TABLET PO PRN (21:35)
[2021-04-28] MEDS: THIAMINE HCL 100 MG TABLET (FP) PO SCH (21:35)
[2021-04-28] MEDS: LIDOCAINE PATCH REMOVAL MC SCH (21:36)
[2021-04-29] MEDS ORDERED: methaDONE HCL 10 MG TABLET ONE (03:10)
[2021-04-29] MEDS ORDERED: methaDONE HCL 40 MG DISPERSABLE TABLET ONE (03:10)
[2021-04-29] MEDS: hydrOXYzine PAMOATE 25 MG CAPSULE (FP) PO SCH ×5 (06:06→21:57)
[2021-04-29] MEDS: NICOTINE POLACRILEX 4 MG GUM BUC PRN ×4 (06:08→20:32)
[2021-04-29] MEDS: MENTHOL/PHENOL 1 EACH UD MM PRN (08:42)
[2021-04-29] MEDS: METHOCARBAMOL 500 MG TABLET PO PRN ×3 (08:43→22:00)
[2021-04-29] MEDS: IBUPROFEN 400 MG TABLET (FP) PO PRN ×2 (08:43→17:04)
[2021-04-29] MEDS: NICOTINE 7 MG/24 HOURS TOPICAL PATCH TD SCH (10:07)
[2021-04-29] MEDS: BUDESONIDE/FORMETEROL FUMARATE 160/4.5 mcg INHALER IH SCH ×2 (10:07→21:56)
[2021-04-29] MEDS: TIOTROPIUM BROMIDE 2.5 MCG (SPIRIVA) RESPIMAT INHALER IH SCH (10:07)
[2021-04-29] MEDS: levETIRAcetam 500 MG TABLET (FP) PO SCH ×2 (10:07→21:57)
[2021-04-29] MEDS: LIDOCAINE 5% TOPICAL PATCH TP SCH (10:08)
[2021-04-29] MEDS: PRENATAL VITAMINS W/ FOLIC ACID TABLET (FP) PO SCH (10:08)
[2021-04-29] MEDS: NICOTINE 10 MG CARTRIDGE (INHALER) IH PRN ×2 (10:09→17:05)
[2021-04-29] MEDS: MIRTAZAPINE 15 MG TABLET (FP) PO SCH (21:57)
[2021-04-29] MEDS: THIAMINE HCL 100 MG TABLET (FP) PO SCH (21:57)
[2021-04-29] MEDS: DOCUSATE SODIUM 100 MG CAPSULE (FP) PO SCH (21:57)
[2021-04-29] MEDS: MELATONIN 5 MG TABLETS PO SCH (21:58)
[2021-04-29] MEDS: QUEtiapine FUMARATE 300 MG TABLET PO SCH (21:58)
[2021-04-29] MEDS: LIDOCAINE PATCH REMOVAL MC SCH (21:58)
[2021-04-29] MEDS: SUVOREXANT 10 MG TABLET PO PRN (21:58)
[2021-04-30] MEDS ORDERED: methaDONE HCL 10 MG TABLET ONE (05:06)
[2021-04-30] MEDS ORDERED: methaDONE HCL 40 MG DISPERSABLE TABLET ONE (05:06)
[2021-04-30] MEDS: hydrOXYzine PAMOATE 25 MG CAPSULE (FP) PO SCH ×5 (05:40→21:37)
[2021-04-30] MEDS: IBUPROFEN 400 MG TABLET (FP) PO PRN ×2 (05:45→15:26)
[2021-04-30] MEDS: NICOTINE 10 MG CARTRIDGE (INHALER) IH PRN (06:10)
[2021-04-30] MEDS: NICOTINE POLACRILEX 4 MG GUM BUC PRN ×5 (06:10→21:52)
[2021-04-30] MEDS: METHOCARBAMOL 500 MG TABLET PO PRN (09:43)
[2021-04-30] MEDS: BUDESONIDE/FORMETEROL FUMARATE 160/4.5 mcg INHALER IH SCH ×2 (09:43→21:37)
[2021-04-30] MEDS: TIOTROPIUM BROMIDE 2.5 MCG (SPIRIVA) RESPIMAT INHALER IH SCH (09:43)
[2021-04-30] MEDS: levETIRAcetam 500 MG TABLET (FP) PO SCH ×2 (09:43→21:37)
[2021-04-30] MEDS: NICOTINE 7 MG/24 HOURS TOPICAL PATCH TD SCH (09:43)
[2021-04-30] MEDS: PRENATAL VITAMINS W/ FOLIC ACID TABLET (FP) PO SCH (09:44)
[2021-04-30] MEDS: LIDOCAINE 5% TOPICAL PATCH TP SCH (09:44)
[2021-04-30] MEDS: MAGNESIUM HYDROX 2400MG/30ML ORAL SUSPENSION 30 ML CUP PO PRN (09:46)
[2021-04-30 10:09] LABS: SARS-CoV-2 NAA Not Detected (Not Detected)
[2021-04-30] MEDS ORDERED: AMOXICILLIN 500 MG CAPSULE (FP) PO ONE (11:00)
[2021-04-30] MEDS: AMOXICILLIN 500 MG CAPSULE (FP) PO SCH ×2 (13:34→21:36)
[2021-04-30] MEDS: ACETAMINOPHEN 325 MG TABLET (FP) PO PRN (20:45)
[2021-04-30] MEDS: DOCUSATE SODIUM 100 MG CAPSULE (FP) PO SCH (21:36)
[2021-04-30] MEDS: MIRTAZAPINE 15 MG TABLET (FP) PO SCH (21:36)
[2021-04-30] MEDS: MELATONIN 5 MG TABLETS PO SCH (21:37)
[2021-04-30] MEDS: QUEtiapine FUMARATE 300 MG TABLET PO SCH (21:37)
[2021-04-30] MEDS: LIDOCAINE PATCH REMOVAL MC SCH (21:37)
[2021-04-30] MEDS: THIAMINE HCL 100 MG TABLET (FP) PO SCH (21:37)
[2021-04-30] MEDS: SUVOREXANT 10 MG TABLET PO PRN (21:39)
[2021-05-01] MEDS ORDERED: methaDONE HCL 40 MG DISPERSABLE TABLET ONE (03:13)
[2021-05-01] MEDS ORDERED: methaDONE HCL 10 MG TABLET ONE (03:13)
[2021-05-01] MEDS: NICOTINE POLACRILEX 4 MG GUM BUC PRN ×6 (03:53→22:26)
[2021-05-01] MEDS: AMOXICILLIN 500 MG CAPSULE (FP) PO SCH ×3 (05:59→21:49)
[2021-05-01] MEDS: hydrOXYzine PAMOATE 25 MG CAPSULE (FP) PO SCH ×5 (05:59→21:49)
[2021-05-01] MEDS: MAGNESIUM HYDROX 2400MG/30ML ORAL SUSPENSION 30 ML CUP PO PRN (06:35)
[2021-05-01] MEDS: IBUPROFEN 400 MG TABLET (FP) PO PRN ×2 (09:08→17:38)
[2021-05-01] MEDS: METHOCARBAMOL 500 MG TABLET PO PRN ×2 (09:08→17:38)
[2021-05-01] MEDS: PRENATAL VITAMINS W/ FOLIC ACID TABLET (FP) PO SCH (10:39)
[2021-05-01] MEDS: BUDESONIDE/FORMETEROL FUMARATE 160/4.5 mcg INHALER IH SCH ×2 (10:39→21:50)
[2021-05-01] MEDS: levETIRAcetam 500 MG TABLET (FP) PO SCH ×2 (10:39→21:51)
[2021-05-01] MEDS: TIOTROPIUM BROMIDE 2.5 MCG (SPIRIVA) RESPIMAT INHALER IH SCH (10:39)
[2021-05-01] MEDS: LIDOCAINE 5% TOPICAL PATCH TP SCH (10:40)
[2021-05-01] MEDS: NICOTINE 7 MG/24 HOURS TOPICAL PATCH TD SCH (10:41)
[2021-05-01] MEDS: DOCUSATE SODIUM 100 MG CAPSULE (FP) PO SCH (21:48)
[2021-05-01] MEDS: QUEtiapine FUMARATE 300 MG TABLET PO SCH (21:49)
[2021-05-01] MEDS: LIDOCAINE PATCH REMOVAL MC SCH (21:50)
[2021-05-01] MEDS: MIRTAZAPINE 15 MG TABLET (FP) PO SCH (21:50)
[2021-05-01] MEDS: THIAMINE HCL 100 MG TABLET (FP) PO SCH (21:50)
[2021-05-01] MEDS: MELATONIN 5 MG TABLETS PO SCH (21:51)
[2021-05-01] MEDS: SUVOREXANT 10 MG TABLET PO PRN (21:52)
[2021-05-01] MEDS: MENTHOL/PHENOL 1 EACH UD MM PRN (22:26)
[2021-05-02] MEDS: METHOCARBAMOL 500 MG TABLET PO PRN ×2 (02:44→17:59)
[2021-05-02] MEDS: NICOTINE POLACRILEX 4 MG GUM BUC PRN ×3 (02:45→18:00)
[2021-05-02] MEDS: MENTHOL/PHENOL 1 EACH UD MM PRN ×3 (02:46→17:59)
[2021-05-02] MEDS ORDERED: methaDONE HCL 10 MG TABLET ONE (03:39)
[2021-05-02] MEDS ORDERED: methaDONE HCL 40 MG DISPERSABLE TABLET ONE (03:39)
[2021-05-02] MEDS: hydrOXYzine PAMOATE 25 MG CAPSULE (FP) PO SCH ×5 (06:09→21:50)
[2021-05-02] MEDS: AMOXICILLIN 500 MG CAPSULE (FP) PO SCH ×3 (06:10→21:49)
[2021-05-02] MEDS: BUDESONIDE/FORMETEROL FUMARATE 160/4.5 mcg INHALER IH SCH ×2 (10:19→21:50)
[2021-05-02] MEDS: LIDOCAINE 5% TOPICAL PATCH TP SCH (10:19)
[2021-05-02] MEDS: NICOTINE 7 MG/24 HOURS TOPICAL PATCH TD SCH (10:20)
[2021-05-02] MEDS: TIOTROPIUM BROMIDE 2.5 MCG (SPIRIVA) RESPIMAT INHALER IH SCH (10:20)
[2021-05-02] MEDS: IBUPROFEN 400 MG TABLET (FP) PO PRN ×2 (10:20→21:53)
[2021-05-02] MEDS: PRENATAL VITAMINS W/ FOLIC ACID TABLET (FP) PO SCH (10:20)
[2021-05-02] MEDS: levETIRAcetam 500 MG TABLET (FP) PO SCH ×2 (10:22→21:50)
[2021-05-02] MEDS: NICOTINE 10 MG CARTRIDGE (INHALER) IH PRN ×2 (14:05→21:47)
[2021-05-02] MEDS: DOCUSATE SODIUM 100 MG CAPSULE (FP) PO SCH (21:48)
[2021-05-02] MEDS: QUEtiapine FUMARATE 300 MG TABLET PO SCH (21:49)
[2021-05-02] MEDS: MIRTAZAPINE 15 MG TABLET (FP) PO SCH (21:50)
[2021-05-02] MEDS: LIDOCAINE PATCH REMOVAL MC SCH (21:50)
[2021-05-02] MEDS: THIAMINE HCL 100 MG TABLET (FP) PO SCH (21:50)
[2021-05-02] MEDS: METHYL SALICYLATE/MENTHOL OINT 30 GM TUBE TP SCH (21:51)
[2021-05-02] MEDS: MELATONIN 5 MG TABLETS PO SCH (22:02)
[2021-05-02] MEDS: SUVOREXANT 10 MG TABLET PO PRN (22:05)
[2021-05-03] MEDS ORDERED: methaDONE HCL 40 MG DISPERSABLE TABLET ONE (06:02)
[2021-05-03] MEDS ORDERED: methaDONE HCL 10 MG TABLET ONE (06:02)
[2021-05-03] MEDS: MENTHOL/PHENOL 1 EACH UD MM PRN (06:04)
[2021-05-03] MEDS: hydrOXYzine PAMOATE 25 MG CAPSULE (FP) PO SCH ×5 (06:04→21:46)
[2021-05-03] MEDS: AMOXICILLIN 500 MG CAPSULE (FP) PO SCH ×3 (06:04→21:43)
[2021-05-03] MEDS: NICOTINE POLACRILEX 4 MG GUM BUC PRN ×5 (06:05→17:22)
[2021-05-03] MEDS: levETIRAcetam 500 MG TABLET (FP) PO SCH ×2 (09:02→21:43)
[2021-05-03] MEDS: PRENATAL VITAMINS W/ FOLIC ACID TABLET (FP) PO SCH (09:02)
[2021-05-03] MEDS: METHOCARBAMOL 500 MG TABLET PO PRN ×2 (09:02→17:21)
[2021-05-03] MEDS: IBUPROFEN 400 MG TABLET (FP) PO PRN ×2 (09:03→19:42)
[2021-05-03] MEDS: TIOTROPIUM BROMIDE 2.5 MCG (SPIRIVA) RESPIMAT INHALER IH SCH (09:03)
[2021-05-03] MEDS: BUDESONIDE/FORMETEROL FUMARATE 160/4.5 mcg INHALER IH SCH ×2 (09:03→21:42)
[2021-05-03] MEDS: LIDOCAINE 5% TOPICAL PATCH TP SCH (09:04)
[2021-05-03] MEDS: NICOTINE 7 MG/24 HOURS TOPICAL PATCH TD SCH (09:04)
[2021-05-03] MEDS: METHYL SALICYLATE/MENTHOL OINT 30 GM TUBE TP SCH ×2 (09:05→21:43)
[2021-05-03] MEDS: NICOTINE 10 MG CARTRIDGE (INHALER) IH PRN ×3 (09:14→21:48)
[2021-05-03] MEDS: MAGNESIUM HYDROX 2400MG/30ML ORAL SUSPENSION 30 ML CUP PO PRN (14:34)
[2021-05-03] MEDS: QUEtiapine FUMARATE 300 MG TABLET PO SCH (21:43)
[2021-05-03] MEDS: SUVOREXANT 10 MG TABLET PO PRN (21:43)
[2021-05-03] MEDS: THIAMINE HCL 100 MG TABLET (FP) PO SCH (21:43)
[2021-05-03] MEDS: DOCUSATE SODIUM 100 MG CAPSULE (FP) PO SCH (21:44)
[2021-05-03] MEDS: LIDOCAINE PATCH REMOVAL MC SCH (21:44)
[2021-05-03] MEDS: MELATONIN 5 MG TABLETS PO SCH (21:44)
[2021-05-03] MEDS: MIRTAZAPINE 15 MG TABLET (FP) PO SCH (21:45)
[2021-05-04] MEDS ORDERED: methaDONE HCL 10 MG TABLET ONE (02:43)
[2021-05-04] MEDS ORDERED: methaDONE HCL 40 MG DISPERSABLE TABLET ONE (02:44)
[2021-05-04] MEDS: AMOXICILLIN 500 MG CAPSULE (FP) PO SCH ×3 (06:12→21:36)
[2021-05-04] MEDS: hydrOXYzine PAMOATE 25 MG CAPSULE (FP) PO SCH ×5 (06:12→21:36)
[2021-05-04] MEDS: NICOTINE 10 MG CARTRIDGE (INHALER) IH PRN ×3 (06:13→21:39)
[2021-05-04] MEDS: NICOTINE POLACRILEX 4 MG GUM BUC PRN ×3 (06:14→12:54)
[2021-05-04] MEDS: NICOTINE 7 MG/24 HOURS TOPICAL PATCH TD SCH (10:37)
[2021-05-04] MEDS: levETIRAcetam 500 MG TABLET (FP) PO SCH ×2 (10:37→21:36)
[2021-05-04] MEDS: METHYL SALICYLATE/MENTHOL OINT 30 GM TUBE TP SCH ×2 (10:37→22:06)
[2021-05-04] MEDS: PRENATAL VITAMINS W/ FOLIC ACID TABLET (FP) PO SCH (10:37)
[2021-05-04] MEDS: BUDESONIDE/FORMETEROL FUMARATE 160/4.5 mcg INHALER IH SCH ×2 (10:37→21:35)
[2021-05-04] MEDS: LIDOCAINE 5% TOPICAL PATCH TP SCH (10:38)
[2021-05-04] MEDS: TIOTROPIUM BROMIDE 2.5 MCG (SPIRIVA) RESPIMAT INHALER IH SCH (10:38)
[2021-05-04] MEDS: IBUPROFEN 400 MG TABLET (FP) PO PRN ×2 (10:39→17:50)
[2021-05-04] MEDS: METHOCARBAMOL 500 MG TABLET PO PRN ×2 (10:40→17:49)
[2021-05-04] MEDS: MAGNESIUM HYDROX 2400MG/30ML ORAL SUSPENSION 30 ML CUP PO PRN (17:49)
[2021-05-04] MEDS: MIRTAZAPINE 15 MG TABLET (FP) PO SCH (21:36)
[2021-05-04] MEDS: QUEtiapine FUMARATE 300 MG TABLET PO SCH (21:36)
[2021-05-04] MEDS: THIAMINE HCL 100 MG TABLET (FP) PO SCH (21:36)
[2021-05-04] MEDS: DOCUSATE SODIUM 100 MG CAPSULE (FP) PO SCH (21:36)
[2021-05-04] MEDS: ACETAMINOPHEN 325 MG TABLET (FP) PO PRN (21:37)
[2021-05-04] MEDS: SUVOREXANT 10 MG TABLET PO PRN (21:37)
[2021-05-04] MEDS: COLLOIDAL OATMEAL 1 BAR EACH TP PRN (21:39)
[2021-05-04] MEDS ORDERED: SUVOREXANT 10 MG TABLET PO PRN (22:00)
[2021-05-04] MEDS: LIDOCAINE PATCH REMOVAL MC SCH (22:07)
[2021-05-04] MEDS: MELATONIN 5 MG TABLETS PO SCH (22:07)
[2021-05-05] MEDS ORDERED: methaDONE HCL 40 MG DISPERSABLE TABLET ONE (04:00)
[2021-05-05] MEDS ORDERED: methaDONE HCL 10 MG TABLET ONE (04:00)
[2021-05-05] MEDS: MENTHOL/PHENOL 1 EACH UD MM PRN (04:10)
[2021-05-05] MEDS: NICOTINE POLACRILEX 4 MG GUM BUC PRN ×2 (04:10→09:54)
[2021-05-05] MEDS: NICOTINE 10 MG CARTRIDGE (INHALER) IH PRN (06:17)
[2021-05-05] MEDS: hydrOXYzine PAMOATE 25 MG CAPSULE (FP) PO SCH ×2 (06:18→09:50)
[2021-05-05] MEDS: AMOXICILLIN 500 MG CAPSULE (FP) PO SCH (06:48)
[2021-05-05 07:25] VITALS: BP 127/73; PULSE 75; TEMP 97.5
[2021-05-05] MEDS: METHYL SALICYLATE/MENTHOL OINT 30 GM TUBE TP SCH (09:50)
[2021-05-05] MEDS: LIDOCAINE 5% TOPICAL PATCH TP SCH (09:50)
[2021-05-05] MEDS: levETIRAcetam 500 MG TABLET (FP) PO SCH (09:50)
[2021-05-05] MEDS: PRENATAL VITAMINS W/ FOLIC ACID TABLET (FP) PO SCH (09:51)
[2021-05-05] MEDS: NICOTINE 7 MG/24 HOURS TOPICAL PATCH TD SCH (09:51)
[2021-05-05] MEDS: BUDESONIDE/FORMETEROL FUMARATE 160/4.5 mcg INHALER IH SCH (09:57)
[2021-05-05] MEDS: TIOTROPIUM BROMIDE 2.5 MCG (SPIRIVA) RESPIMAT INHALER IH SCH (09:58)
== END 2021-05-05 10:00 | disposition home or self-care (01) | DRG 772 ==
LOC: YASAS 12:57 → Y5N 12:59
PROVIDERS: ADMIT Allergy & Immunology; ATTEND Allergy & Immunology
PROC: HZ42ZZZ Group Counseling for Substance Abuse Treatment, Cognitive-Behavioral (ICD-10-PCS; principal; 2021-04-25)
DX: F11.20 Opioid dependence, uncomplicated (principal); F10.20 Alcohol dependence, uncomplicated; F14.20 Cocaine dependence, uncomplicated; F17.210 Nicotine dependence, cigarettes, uncomplicated; F31.81 Bipolar II disorder; F19.280 Other psychoactive substance dependence with psychoactive substance-induced anxiety disorder; F19.282 Other psychoactive substance dependence with psychoactive substance-induced sleep disorder; I10 Essential (primary) hypertension; J45.909 Unspecified asthma, uncomplicated; J02.0 Streptococcal pharyngitis; K21.9 Gastro-esophageal reflux disease without esophagitis; M79.7 Fibromyalgia; Z86.69 Personal history of other diseases of the nervous system and sense organs; Z86.19 Personal history of other infectious and parasitic diseases; Z88.8 Allergy status to other drugs, medicaments and biological substances; Z56.0 Unemployment, unspecified
CPT/HCPCS: 87070; 87077; C9803; U0003; U0005

== ENCOUNTER 2022-04-09 13:51 | Inpatient (IN) | payer OTHER ==
[2022-04-09 15:09] VITALS: BMI 25.0
[2022-04-09] MEDS ORDERED: ACETAMINOPHEN 325 MG TABLET (FP) PO PRN (17:36)
[2022-04-09] MEDS ORDERED: IBUPROFEN 600 MG TABLET (FP) PO PRN (17:36)
[2022-04-09] MEDS ORDERED: MAGNESIUM HYDROX 2400MG/30ML ORAL SUSPENSION 30 ML CUP PO PRN (17:36)
[2022-04-09] MEDS ORDERED: P-EPHED 60MG/TRIPROLIDI 2.5MG TABLET PO PRN (17:36)
[2022-04-09] MEDS ORDERED: IBUPROFEN 400 MG TABLET (FP) PO PRN (17:36)
[2022-04-09] MEDS ORDERED: ONDANSETRON *ODT* 4 MG TABLET SL PRN (17:36)
[2022-04-09] MEDS ORDERED: DICYCLOMINE HCL 10 MG CAPSULE PO PRN (17:36)
[2022-04-09] MEDS ORDERED: NALOXONE HCL 0.4 MG/ML VIAL IM PRN (17:36)
[2022-04-09] MEDS ORDERED: NALOXONE HCL (KLOXXADO) 8 MG SPRAY NS PRN (17:36)
[2022-04-09] MEDS ORDERED: POLYETHYLENE GLYCOL (HEALTHYLAX) 3350 17 GM PACKET PO PRN (17:36)
[2022-04-09] MEDS ORDERED: BENZOCAINE/MENTHOL (CHLORASEPTIC ) LOZENGE MM PRN (17:36)
[2022-04-09] MEDS ORDERED: guaiFENesin 200 MG/10 ML 10 ML UNIT-DOSE CUPS PO PRN (17:36)
[2022-04-09] MEDS ORDERED: SODIUM CHLORIDE NASAL SPRAY 44 ML BOTTLE NS PRN (17:38)
[2022-04-09] MEDS ORDERED: chlordiazePOXIDE HCL 25 MG CAPSULE PO ONE (17:46)
[2022-04-09] MEDS: NICOTINE 10 MG CARTRIDGE (INHALER) IH PRN (18:50)
[2022-04-09] MEDS: NICOTINE POLACRILEX 4 MG GUM BUC PRN ×2 (18:50→22:26)
[2022-04-09] MEDS: chlordiazePOXIDE HCL 25 MG CAPSULE PO PRN (19:15)
[2022-04-09] MEDS: COLLOIDAL OATMEAL 1 BAR EACH TP PRN (19:15)
[2022-04-09] MEDS: MELATONIN 5 MG TABLETS PO PRN (22:21)
[2022-04-09] MEDS: THIAMINE HCL 100 MG TABLET (FP) PO SCH (22:21)
[2022-04-09] MEDS: DOCUSATE SODIUM 100 MG CAPSULE (FP) PO SCH (22:21)
[2022-04-09] MEDS: levETIRAcetam 500 MG TABLET (FP) PO SCH (22:21)
[2022-04-09] MEDS: MAG HYDROX/AL HYDROX/SIMETH 30 ML UNIT-DOSE CUP PO PRN (22:22)
[2022-04-09] MEDS: chlordiazePOXIDE HCL 25 MG CAPSULE PO SCH (22:23)
[2022-04-09] MEDS: hydrOXYzine PAMOATE 25 MG CAPSULE (FP) PO PRN (22:27)
[2022-04-09] MEDS: METHOCARBAMOL 500 MG TABLET PO PRN (23:48)
[2022-04-10] MEDS: NICOTINE POLACRILEX 4 MG GUM BUC PRN ×4 (02:26→21:45)
[2022-04-10] MEDS: chlordiazePOXIDE HCL 25 MG CAPSULE PO SCH ×4 (05:11→22:19)
[2022-04-10] MEDS: NICOTINE 10 MG CARTRIDGE (INHALER) IH PRN ×3 (05:55→18:31)
[2022-04-10] MEDS ORDERED: methaDONE HCL 10 MG TABLET PO SCH (09:15)
[2022-04-10] MEDS: levETIRAcetam 500 MG TABLET (FP) PO SCH ×2 (10:00→21:41)
[2022-04-10] MEDS: PRENATAL VITAMINS W/ FOLIC ACID TABLET (FP) PO SCH (10:00)
[2022-04-10] MEDS: TIOTROPIUM BROMIDE 2.5 MCG (SPIRIVA) RESPIMAT INHALER IH SCH (10:01)
[2022-04-10] MEDS: NICOTINE 14 MG/24 HOURS TOPICAL PATCH TD SCH (10:03)
[2022-04-10 10:58] LABS: CALCIUM 8.7 mg/dL (8.5-10.1); HEMOGLOBIN 11.4 GM/dL (10.7-15.3); MCH 30.8 pg (25.7-33.7); MCHC 33.6 g/dl (32.0-36.0); MEAN CELL VOLUME 91.5 fl (80-96); MEAN PLT VOLUME 9.3 fl (7.5-11.1); PLATELET COUNT 145 10^3/uL (134-434); RBC 3.72 M/mm3 (3.60-5.2); RDW 13.8 % (11.6-15.6); WHITE BLOOD COUNT 2.9 K/mm3 (4.0-10.0)
[2022-04-10 10:59] LABS: ALBUMIN 3.3 g/dl (3.4-5.0)
[2022-04-10 11:02] LABS: CREATININE 0.7 mg/dL (0.55-1.3)
[2022-04-10 11:03] LABS: BILIRUBIN,TOTAL 0.4 mg/dL (0.2-1)
[2022-04-10 11:04] LABS: TOT PROT 6.5 g/dl (6.4-8.2)
[2022-04-10] MEDS: ALBUTEROL SO4 HFA INHALER IH PRN (12:37)
[2022-04-10] MEDS: hydrOXYzine PAMOATE 25 MG CAPSULE (FP) PO PRN ×3 (12:38→21:41)
[2022-04-10] MEDS: chlordiazePOXIDE HCL 25 MG CAPSULE PO PRN (13:37)
[2022-04-10] MEDS: METHOCARBAMOL 500 MG TABLET PO PRN (14:31)
[2022-04-10] MEDS: ACETAMINOPHEN 325 MG TABLET (FP) PO PRN (18:33)
[2022-04-10] MEDS ORDERED: MIRTAZAPINE 15 MG TABLET (FP) ONE (21:30)
[2022-04-10] MEDS: DOCUSATE SODIUM 100 MG CAPSULE (FP) PO SCH (21:40)
[2022-04-10] MEDS: MIRTAZAPINE 30 MG TABLET PO SCH (21:41)
[2022-04-10] MEDS: THIAMINE HCL 100 MG TABLET (FP) PO SCH (21:41)
[2022-04-10] MEDS: MELATONIN 5 MG TABLETS PO PRN (21:42)
[2022-04-10] MEDS: QUEtiapine FUMARATE 200 MG TABLET PO SCH (21:42)
[2022-04-11] MEDS: chlordiazePOXIDE HCL 25 MG CAPSULE PO PRN ×2 (02:32→13:07)
[2022-04-11] MEDS: chlordiazePOXIDE HCL 25 MG CAPSULE PO SCH ×4 (05:33→22:05)
[2022-04-11] MEDS: NICOTINE 10 MG CARTRIDGE (INHALER) IH PRN ×4 (05:36→22:08)
[2022-04-11] MEDS: NICOTINE POLACRILEX 4 MG GUM BUC PRN ×6 (05:37→22:10)
[2022-04-11] MEDS: hydrOXYzine PAMOATE 25 MG CAPSULE (FP) PO PRN ×2 (09:11→17:27)
[2022-04-11] MEDS: TIOTROPIUM BROMIDE 2.5 MCG (SPIRIVA) RESPIMAT INHALER IH SCH (10:32)
[2022-04-11] MEDS: ALBUTEROL SO4 HFA INHALER IH PRN (10:33)
[2022-04-11] MEDS: PRENATAL VITAMINS W/ FOLIC ACID TABLET (FP) PO SCH (10:34)
[2022-04-11] MEDS: levETIRAcetam 500 MG TABLET (FP) PO SCH ×2 (10:35→22:04)
[2022-04-11] MEDS: NICOTINE 14 MG/24 HOURS TOPICAL PATCH TD SCH (10:38)
[2022-04-11] MEDS: ACETAMINOPHEN 325 MG TABLET (FP) PO PRN ×2 (14:39→22:05)
[2022-04-11] MEDS: MAG HYDROX/AL HYDROX/SIMETH 30 ML UNIT-DOSE CUP PO PRN (19:32)
[2022-04-11] MEDS ORDERED: MIRTAZAPINE 15 MG TABLET (FP) ONE (21:13)
[2022-04-11] MEDS: LOPERAMIDE HCL 2 MG CAPSULE PO PRN (21:21)
[2022-04-11] MEDS: MIRTAZAPINE 30 MG TABLET PO SCH (22:04)
[2022-04-11] MEDS: THIAMINE HCL 100 MG TABLET (FP) PO SCH (22:05)
[2022-04-11] MEDS: DOCUSATE SODIUM 100 MG CAPSULE (FP) PO SCH (22:05)
[2022-04-11] MEDS: QUEtiapine FUMARATE 200 MG TABLET PO SCH (22:05)
[2022-04-11] MEDS: METHOCARBAMOL 500 MG TABLET PO PRN (22:09)
[2022-04-12] MEDS ORDERED: chlordiazePOXIDE HCL 10 MG CAPSULE PO PRN
[2022-04-12] MEDS: hydrOXYzine PAMOATE 25 MG CAPSULE (FP) PO PRN ×3 (01:54→18:52)
[2022-04-12] MEDS: BISMUTH SUBSALICYLATE 524 MG/30 ML PO PRN ×2 (01:57→13:47)
[2022-04-12] MEDS: NICOTINE POLACRILEX 4 MG GUM BUC PRN ×6 (02:02→22:12)
[2022-04-12] MEDS: chlordiazePOXIDE HCL 10 MG CAPSULE PO SCH ×4 (05:52→23:12)
[2022-04-12] MEDS: METHOCARBAMOL 500 MG TABLET PO PRN ×2 (05:57→13:20)
[2022-04-12] MEDS: NICOTINE 10 MG CARTRIDGE (INHALER) IH PRN ×3 (05:58→22:12)
[2022-04-12] MEDS: ALBUTEROL SO4 HFA INHALER IH PRN ×3 (05:58→22:13)
[2022-04-12] MEDS: TIOTROPIUM BROMIDE 2.5 MCG (SPIRIVA) RESPIMAT INHALER IH SCH (10:31)
[2022-04-12] MEDS: PRENATAL VITAMINS W/ FOLIC ACID TABLET (FP) PO SCH (10:31)
[2022-04-12] MEDS: NICOTINE 14 MG/24 HOURS TOPICAL PATCH TD SCH (10:32)
[2022-04-12] MEDS: levETIRAcetam 500 MG TABLET (FP) PO SCH ×2 (10:32→22:07)
[2022-04-12] MEDS: ACETAMINOPHEN 325 MG TABLET (FP) PO PRN (12:01)
[2022-04-12] MEDS ORDERED: MIRTAZAPINE 15 MG TABLET (FP) ONE (21:44)
[2022-04-12] MEDS: QUEtiapine FUMARATE 200 MG TABLET PO SCH (22:07)
[2022-04-12] MEDS: MIRTAZAPINE 30 MG TABLET PO SCH (22:07)
[2022-04-12] MEDS: DOCUSATE SODIUM 100 MG CAPSULE (FP) PO SCH (22:07)
[2022-04-12] MEDS: THIAMINE HCL 100 MG TABLET (FP) PO SCH (22:08)
[2022-04-12] MEDS: LOPERAMIDE HCL 2 MG CAPSULE PO PRN (22:33)
[2022-04-13] MEDS: chlordiazePOXIDE HCL 10 MG CAPSULE PO SCH ×2 (05:13→17:21)
[2022-04-13] MEDS: NICOTINE POLACRILEX 4 MG GUM BUC PRN ×5 (05:15→19:58)
[2022-04-13] MEDS: hydrOXYzine PAMOATE 25 MG CAPSULE (FP) PO PRN ×2 (05:15→13:08)
[2022-04-13] MEDS: NICOTINE 10 MG CARTRIDGE (INHALER) IH PRN ×2 (05:15→15:57)
[2022-04-13] MEDS: LOPERAMIDE HCL 2 MG CAPSULE PO PRN ×2 (05:49→19:56)
[2022-04-13] MEDS: COLLOIDAL OATMEAL 1 BAR EACH TP PRN (09:12)
[2022-04-13] MEDS: NICOTINE 14 MG/24 HOURS TOPICAL PATCH TD SCH (10:06)
[2022-04-13] MEDS: PRENATAL VITAMINS W/ FOLIC ACID TABLET (FP) PO SCH (10:06)
[2022-04-13] MEDS: levETIRAcetam 500 MG TABLET (FP) PO SCH ×2 (10:07→22:10)
[2022-04-13] MEDS: TIOTROPIUM BROMIDE 2.5 MCG (SPIRIVA) RESPIMAT INHALER IH SCH (10:07)
[2022-04-13] MEDS: ALBUTEROL SO4 HFA INHALER IH PRN ×2 (10:07→22:16)
[2022-04-13] MEDS: METHOCARBAMOL 500 MG TABLET PO PRN ×2 (10:08→22:12)
[2022-04-13] MEDS: ACETAMINOPHEN 325 MG TABLET (FP) PO PRN ×2 (13:08→19:57)
[2022-04-13 13:15] LABS: HIV INTERPRETATION NEGATIVE (NEGATIVE)
[2022-04-13] MEDS: MAG HYDROX/AL HYDROX/SIMETH 30 ML UNIT-DOSE CUP PO PRN (17:30)
[2022-04-13] MEDS ORDERED: MIRTAZAPINE 15 MG TABLET (FP) ONE (20:56)
[2022-04-13] MEDS: THIAMINE HCL 100 MG TABLET (FP) PO SCH (22:09)
[2022-04-13] MEDS: DOCUSATE SODIUM 100 MG CAPSULE (FP) PO SCH (22:09)
[2022-04-13] MEDS: MIRTAZAPINE 30 MG TABLET PO SCH (22:10)
[2022-04-13] MEDS: QUEtiapine FUMARATE 200 MG TABLET PO SCH (22:11)
[2022-04-14] MEDS ORDERED: chlordiazePOXIDE HCL 10 MG CAPSULE PO ONE (05:00)
[2022-04-14] MEDS: PRENATAL VITAMINS W/ FOLIC ACID TABLET (FP) PO SCH (09:23)
[2022-04-14] MEDS: TIOTROPIUM BROMIDE 2.5 MCG (SPIRIVA) RESPIMAT INHALER IH SCH (09:23)
[2022-04-14] MEDS: levETIRAcetam 500 MG TABLET (FP) PO SCH (09:23)
[2022-04-14] MEDS: METHOCARBAMOL 500 MG TABLET PO PRN ×2 (09:24→17:00)
[2022-04-14] MEDS: LOPERAMIDE HCL 2 MG CAPSULE PO PRN (09:26)
[2022-04-14] MEDS: NICOTINE POLACRILEX 4 MG GUM BUC PRN ×3 (09:26→15:46)
[2022-04-14] MEDS: NICOTINE 14 MG/24 HOURS TOPICAL PATCH TD SCH ×2 (09:28→12:33)
[2022-04-14] MEDS: MAG HYDROX/AL HYDROX/SIMETH 30 ML UNIT-DOSE CUP PO PRN (10:49)
[2022-04-14] MEDS: hydrOXYzine PAMOATE 25 MG CAPSULE (FP) PO PRN (10:55)
[2022-04-14] MEDS: BISMUTH SUBSALICYLATE 524 MG/30 ML PO PRN ×2 (12:35→16:58)
[2022-04-14 12:36] VITALS: RESP 18
[2022-04-14] MEDS: ACETAMINOPHEN 325 MG TABLET (FP) PO PRN (15:45)
[2022-04-14 17:33] VITALS: BP 112/60; PULSE 63; TEMP 97.3
== END 2022-04-14 18:37 | disposition other institution (70) | DRG 773 ==
LOC: YASAS 13:51 → Y3N 18:09
PROVIDERS: ADMIT Allergy & Immunology; ATTEND Surgery
PROC: HZ2ZZZZ Detoxification Services for Substance Abuse Treatment (ICD-10-PCS; principal; 2022-04-09)
DX: F10.230 Alcohol dependence with withdrawal, uncomplicated (principal); F11.20 Opioid dependence, uncomplicated; F14.20 Cocaine dependence, uncomplicated; F17.210 Nicotine dependence, cigarettes, uncomplicated; F31.81 Bipolar II disorder; F41.9 Anxiety disorder, unspecified; I10 Essential (primary) hypertension; J44.9 Chronic obstructive pulmonary disease, unspecified; J45.20 Mild intermittent asthma, uncomplicated; K21.9 Gastro-esophageal reflux disease without esophagitis; M79.7 Fibromyalgia; M54.50 Low back pain, unspecified; G89.29 Other chronic pain; R56.9 Unspecified convulsions; Z86.19 Personal history of other infectious and parasitic diseases; Z88.8 Allergy status to other drugs, medicaments and biological substances
CPT/HCPCS: 36415; 80053; 81025; 85027; 86780; 87389; C9803-CS; U0003; U0005

== ENCOUNTER 2022-04-14 18:44 | Inpatient (IN) | payer OTHER ==
[2022-04-14] MEDS ORDERED: P-EPHED 60MG/TRIPROLIDI 2.5MG TABLET PO PRN (19:35)
[2022-04-14] MEDS ORDERED: LOPERAMIDE HCL 2 MG CAPSULE PO PRN (19:35)
[2022-04-14] MEDS ORDERED: guaiFENesin 200 MG/10 ML 10 ML UNIT-DOSE CUPS PO PRN (19:35)
[2022-04-14] MEDS ORDERED: POLYETHYLENE GLYCOL (HEALTHYLAX) 3350 17 GM PACKET PO PRN (19:35)
[2022-04-14] MEDS ORDERED: BENZOCAINE/MENTHOL (CHLORASEPTIC ) LOZENGE MM PRN (19:35)
[2022-04-14] MEDS ORDERED: MELATONIN 5 MG TABLETS PO PRN (19:35)
[2022-04-14] MEDS ORDERED: ALBUTEROL SO4 HFA INHALER IH PRN (19:36)
[2022-04-14] MEDS: levETIRAcetam 500 MG TABLET (FP) PO SCH (21:34)
[2022-04-14] MEDS: DOCUSATE SODIUM 100 MG CAPSULE (FP) PO SCH (21:36)
[2022-04-14] MEDS: THIAMINE HCL 100 MG TABLET (FP) PO SCH (21:36)
[2022-04-14] MEDS ORDERED: MIRTAZAPINE 15 MG TABLET (FP) PO ONE (22:00)
[2022-04-14] MEDS ORDERED: QUEtiapine FUMARATE 200 MG TABLET PO ONE (22:00)
[2022-04-15] MEDS: IBUPROFEN 400 MG TABLET (FP) PO PRN ×2 (06:17→22:15)
[2022-04-15] MEDS ORDERED: hydrOXYzine PAMOATE 25 MG CAPSULE (FP) PO PRN (08:39)
[2022-04-15] MEDS ORDERED: methaDONE HCL 10 MG TABLET PO SCH (08:45)
[2022-04-15] MEDS: COLLOIDAL OATMEAL 1 BAR EACH TP PRN (10:26)
[2022-04-15] MEDS: levETIRAcetam 500 MG TABLET (FP) PO SCH (10:27)
[2022-04-15] MEDS: PRENATAL VITAMINS W/ FOLIC ACID TABLET (FP) PO SCH (10:29)
[2022-04-15] MEDS: BUDESONIDE/FORMETEROL FUMARATE 160/4.5 mcg INHALER IH SCH ×2 (10:36→21:55)
[2022-04-15] MEDS: NICOTINE POLACRILEX 4 MG GUM BUC PRN ×3 (10:37→16:57)
[2022-04-15] MEDS ORDERED: FLU VACC QS2022-23(6MOS UP)/PF 60 MCG/0.5 ML SYRINGE IM ONE (12:00)
[2022-04-15] MEDS: TIOTROPIUM BROMIDE 2.5 MCG (SPIRIVA) RESPIMAT INHALER IH SCH (12:04)
[2022-04-15] MEDS: NICOTINE 14 MG/24 HOURS TOPICAL PATCH TD SCH (12:46)
[2022-04-15] MEDS: hydrOXYzine PAMOATE 25 MG CAPSULE (FP) PO PRN ×2 (14:07→17:47)
[2022-04-15] MEDS: METHOCARBAMOL 500 MG TABLET PO PRN (14:07)
[2022-04-15] MEDS: ACETAMINOPHEN 325 MG TABLET (FP) PO PRN (16:52)
[2022-04-15] MEDS: DOCUSATE SODIUM 100 MG CAPSULE (FP) PO SCH (21:54)
[2022-04-15] MEDS: levETIRAcetam 250 MG TABLET PO SCH (21:54)
[2022-04-15] MEDS: QUEtiapine FUMARATE 300 MG TABLET PO SCH (21:55)
[2022-04-15] MEDS: THIAMINE HCL 100 MG TABLET (FP) PO SCH (21:55)
[2022-04-15] MEDS: MIRTAZAPINE 15 MG TABLET (FP) PO SCH (21:55)
[2022-04-15] MEDS: SUVOREXANT 10 MG TABLET PO PRN (22:12)
[2022-04-16] MEDS: hydrOXYzine PAMOATE 25 MG CAPSULE (FP) PO PRN ×5 (03:26→21:50)
[2022-04-16] MEDS: ACETAMINOPHEN 325 MG TABLET (FP) PO PRN (03:27)
[2022-04-16] MEDS: NICOTINE POLACRILEX 4 MG GUM BUC PRN ×5 (03:28→21:54)
[2022-04-16] MEDS: PRENATAL VITAMINS W/ FOLIC ACID TABLET (FP) PO SCH (10:22)
[2022-04-16] MEDS: BUDESONIDE/FORMETEROL FUMARATE 160/4.5 mcg INHALER IH SCH ×2 (10:22→21:56)
[2022-04-16] MEDS: TIOTROPIUM BROMIDE 2.5 MCG (SPIRIVA) RESPIMAT INHALER IH SCH (10:22)
[2022-04-16] MEDS: METHOCARBAMOL 500 MG TABLET PO PRN ×2 (10:23→21:49)
[2022-04-16] MEDS: NICOTINE 14 MG/24 HOURS TOPICAL PATCH TD SCH (10:23)
[2022-04-16] MEDS: levETIRAcetam 250 MG TABLET PO SCH ×2 (10:23→21:50)
[2022-04-16] MEDS: IBUPROFEN 400 MG TABLET (FP) PO PRN ×2 (10:25→16:40)
[2022-04-16] MEDS: AMOXICILLIN 500 MG CAPSULE (FP) PO SCH ×2 (13:56→21:49)
[2022-04-16] MEDS: BENZOCAINE 20 % GEL TUBE MM PRN ×2 (13:59→19:00)
[2022-04-16] MEDS: MIRTAZAPINE 15 MG TABLET (FP) PO SCH (21:49)
[2022-04-16] MEDS: THIAMINE HCL 100 MG TABLET (FP) PO SCH (21:49)
[2022-04-16] MEDS: QUEtiapine FUMARATE 300 MG TABLET PO SCH (21:50)
[2022-04-16] MEDS: DOCUSATE SODIUM 100 MG CAPSULE (FP) PO SCH (21:50)
[2022-04-16] MEDS: SUVOREXANT 10 MG TABLET PO PRN (21:52)
[2022-04-17] MEDS: IBUPROFEN 400 MG TABLET (FP) PO PRN ×2 (04:39→15:58)
[2022-04-17] MEDS: BENZOCAINE 20 % GEL TUBE MM PRN ×3 (04:40→17:42)
[2022-04-17] MEDS: hydrOXYzine PAMOATE 25 MG CAPSULE (FP) PO PRN ×4 (04:40→18:32)
[2022-04-17] MEDS: NICOTINE POLACRILEX 4 MG GUM BUC PRN ×4 (04:43→21:38)
[2022-04-17] MEDS: AMOXICILLIN 500 MG CAPSULE (FP) PO SCH ×3 (06:19→21:35)
[2022-04-17] MEDS: PRENATAL VITAMINS W/ FOLIC ACID TABLET (FP) PO SCH (09:42)
[2022-04-17] MEDS: BUDESONIDE/FORMETEROL FUMARATE 160/4.5 mcg INHALER IH SCH ×2 (09:42→21:37)
[2022-04-17] MEDS: METHOCARBAMOL 500 MG TABLET PO PRN (09:44)
[2022-04-17] MEDS: NICOTINE 14 MG/24 HOURS TOPICAL PATCH TD SCH (09:45)
[2022-04-17] MEDS: levETIRAcetam 250 MG TABLET PO SCH ×2 (09:49→21:35)
[2022-04-17] MEDS: ACETAMINOPHEN 325 MG TABLET (FP) PO PRN ×3 (12:05→21:37)
[2022-04-17] MEDS: TIOTROPIUM BROMIDE 2.5 MCG (SPIRIVA) RESPIMAT INHALER IH SCH (12:07)
[2022-04-17] MEDS: SUVOREXANT 10 MG TABLET PO PRN (21:35)
[2022-04-17] MEDS: THIAMINE HCL 100 MG TABLET (FP) PO SCH (21:36)
[2022-04-17] MEDS: QUEtiapine FUMARATE 300 MG TABLET PO SCH (21:36)
[2022-04-17] MEDS: MIRTAZAPINE 15 MG TABLET (FP) PO SCH (21:36)
[2022-04-17] MEDS: DOCUSATE SODIUM 100 MG CAPSULE (FP) PO SCH (21:37)
[2022-04-18] MEDS: hydrOXYzine PAMOATE 25 MG CAPSULE (FP) PO PRN ×3 (06:08→13:54)
[2022-04-18] MEDS: AMOXICILLIN 500 MG CAPSULE (FP) PO SCH ×3 (06:09→21:46)
[2022-04-18] MEDS: BENZOCAINE 20 % GEL TUBE MM PRN ×2 (06:10→13:54)
[2022-04-18] MEDS: NICOTINE POLACRILEX 4 MG GUM BUC PRN ×6 (06:13→21:48)
[2022-04-18] MEDS: IBUPROFEN 400 MG TABLET (FP) PO PRN ×2 (08:51→17:33)
[2022-04-18] MEDS: NICOTINE 14 MG/24 HOURS TOPICAL PATCH TD SCH (10:03)
[2022-04-18] MEDS: PRENATAL VITAMINS W/ FOLIC ACID TABLET (FP) PO SCH (10:03)
[2022-04-18] MEDS: BUDESONIDE/FORMETEROL FUMARATE 160/4.5 mcg INHALER IH SCH ×2 (10:04→21:48)
[2022-04-18] MEDS: levETIRAcetam 250 MG TABLET PO SCH ×2 (10:04→21:47)
[2022-04-18] MEDS: TIOTROPIUM BROMIDE 2.5 MCG (SPIRIVA) RESPIMAT INHALER IH SCH (10:04)
[2022-04-18] MEDS: METHOCARBAMOL 500 MG TABLET PO PRN ×2 (10:06→21:47)
[2022-04-18] MEDS: MAG HYDROX/AL HYDROX/SIMETH 30 ML UNIT-DOSE CUP PO PRN (12:12)
[2022-04-18] MEDS: ACETAMINOPHEN 325 MG TABLET (FP) PO PRN ×2 (13:54→22:27)
[2022-04-18] MEDS: MIRTAZAPINE 15 MG TABLET (FP) PO SCH (21:46)
[2022-04-18] MEDS: SUVOREXANT 10 MG TABLET PO PRN (21:46)
[2022-04-18] MEDS: THIAMINE HCL 100 MG TABLET (FP) PO SCH (21:47)
[2022-04-18] MEDS: QUEtiapine FUMARATE 300 MG TABLET PO SCH (21:47)
[2022-04-18] MEDS: DOCUSATE SODIUM 100 MG CAPSULE (FP) PO SCH (21:48)
[2022-04-19] MEDS: ACETAMINOPHEN 325 MG TABLET (FP) PO PRN (04:27)
[2022-04-19] MEDS: hydrOXYzine PAMOATE 25 MG CAPSULE (FP) PO PRN ×4 (04:27→22:04)
[2022-04-19] MEDS: NICOTINE POLACRILEX 4 MG GUM BUC PRN ×6 (04:29→22:05)
[2022-04-19] MEDS: AMOXICILLIN 500 MG CAPSULE (FP) PO SCH ×3 (05:59→22:03)
[2022-04-19] MEDS: BENZOCAINE 20 % GEL TUBE MM PRN ×3 (06:00→22:11)
[2022-04-19] MEDS: NICOTINE 14 MG/24 HOURS TOPICAL PATCH TD SCH (10:07)
[2022-04-19] MEDS: PRENATAL VITAMINS W/ FOLIC ACID TABLET (FP) PO SCH (10:07)
[2022-04-19] MEDS: BUDESONIDE/FORMETEROL FUMARATE 160/4.5 mcg INHALER IH SCH ×2 (10:09→22:09)
[2022-04-19] MEDS: TIOTROPIUM BROMIDE 2.5 MCG (SPIRIVA) RESPIMAT INHALER IH SCH (10:10)
[2022-04-19] MEDS: METHOCARBAMOL 500 MG TABLET PO PRN ×2 (10:10→22:04)
[2022-04-19] MEDS: IBUPROFEN 400 MG TABLET (FP) PO PRN ×2 (10:10→22:03)
[2022-04-19] MEDS: levETIRAcetam 250 MG TABLET PO SCH ×2 (10:10→22:09)
[2022-04-19] MEDS: MIRTAZAPINE 15 MG TABLET (FP) PO SCH (22:03)
[2022-04-19] MEDS: SUVOREXANT 10 MG TABLET PO PRN (22:03)
[2022-04-19] MEDS: QUEtiapine FUMARATE 300 MG TABLET PO SCH (22:03)
[2022-04-19] MEDS: THIAMINE HCL 100 MG TABLET (FP) PO SCH (22:03)
[2022-04-19] MEDS: DOCUSATE SODIUM 100 MG CAPSULE (FP) PO SCH (22:07)
[2022-04-20] MEDS: AMOXICILLIN 500 MG CAPSULE (FP) PO SCH ×3 (06:40→21:37)
[2022-04-20] MEDS: hydrOXYzine PAMOATE 25 MG CAPSULE (FP) PO PRN ×4 (06:40→21:37)
[2022-04-20] MEDS: NICOTINE POLACRILEX 4 MG GUM BUC PRN ×5 (06:45→21:38)
[2022-04-20] MEDS: ACETAMINOPHEN 325 MG TABLET (FP) PO PRN (08:54)
[2022-04-20] MEDS: levETIRAcetam 250 MG TABLET PO SCH ×2 (09:36→21:36)
[2022-04-20] MEDS: NICOTINE 14 MG/24 HOURS TOPICAL PATCH TD SCH (09:36)
[2022-04-20] MEDS: PRENATAL VITAMINS W/ FOLIC ACID TABLET (FP) PO SCH (09:36)
[2022-04-20] MEDS: BUDESONIDE/FORMETEROL FUMARATE 160/4.5 mcg INHALER IH SCH ×2 (09:37→21:41)
[2022-04-20] MEDS: TIOTROPIUM BROMIDE 2.5 MCG (SPIRIVA) RESPIMAT INHALER IH SCH (09:37)
[2022-04-20] MEDS: IBUPROFEN 400 MG TABLET (FP) PO PRN (17:23)
[2022-04-20] MEDS: METHOCARBAMOL 500 MG TABLET PO PRN (21:36)
[2022-04-20] MEDS: MIRTAZAPINE 15 MG TABLET (FP) PO SCH (21:37)
[2022-04-20] MEDS: THIAMINE HCL 100 MG TABLET (FP) PO SCH (21:37)
[2022-04-20] MEDS: QUEtiapine FUMARATE 300 MG TABLET PO SCH (21:37)
[2022-04-20] MEDS: SUVOREXANT 10 MG TABLET PO PRN (21:38)
[2022-04-20] MEDS: DOCUSATE SODIUM 100 MG CAPSULE (FP) PO SCH (21:56)
[2022-04-21] MEDS: ACETAMINOPHEN 325 MG TABLET (FP) PO PRN ×3 (03:46→21:34)
[2022-04-21] MEDS: hydrOXYzine PAMOATE 25 MG CAPSULE (FP) PO PRN ×5 (03:46→21:34)
[2022-04-21] MEDS: NICOTINE POLACRILEX 4 MG GUM BUC PRN ×5 (03:49→16:54)
[2022-04-21] MEDS: AMOXICILLIN 500 MG CAPSULE (FP) PO SCH ×3 (06:15→21:29)
[2022-04-21] MEDS: levETIRAcetam 250 MG TABLET PO SCH ×2 (10:03→21:29)
[2022-04-21] MEDS: PRENATAL VITAMINS W/ FOLIC ACID TABLET (FP) PO SCH (10:04)
[2022-04-21] MEDS: NICOTINE 14 MG/24 HOURS TOPICAL PATCH TD SCH (10:04)
[2022-04-21] MEDS: TIOTROPIUM BROMIDE 2.5 MCG (SPIRIVA) RESPIMAT INHALER IH SCH (10:04)
[2022-04-21] MEDS: IBUPROFEN 400 MG TABLET (FP) PO PRN ×2 (10:06→16:53)
[2022-04-21] MEDS: BUDESONIDE/FORMETEROL FUMARATE 160/4.5 mcg INHALER IH SCH ×2 (10:06→22:11)
[2022-04-21] MEDS: COLLOIDAL OATMEAL 1 BAR EACH TP PRN (16:53)
[2022-04-21] MEDS: MIRTAZAPINE 15 MG TABLET (FP) PO SCH (21:30)
[2022-04-21] MEDS: QUEtiapine FUMARATE 300 MG TABLET PO SCH (21:34)
[2022-04-21] MEDS: SUVOREXANT 10 MG TABLET PO PRN (21:34)
[2022-04-21] MEDS: DOCUSATE SODIUM 100 MG CAPSULE (FP) PO SCH (21:34)
[2022-04-21] MEDS: THIAMINE HCL 100 MG TABLET (FP) PO SCH (22:11)
[2022-04-22] MEDS: hydrOXYzine PAMOATE 25 MG CAPSULE (FP) PO PRN ×5 (06:08→21:34)
[2022-04-22] MEDS: AMOXICILLIN 500 MG CAPSULE (FP) PO SCH ×3 (06:08→21:33)
[2022-04-22] MEDS: NICOTINE 10 MG CARTRIDGE (INHALER) IH PRN ×3 (06:08→21:35)
[2022-04-22] MEDS: IBUPROFEN 400 MG TABLET (FP) PO PRN ×2 (09:09→15:15)
[2022-04-22] MEDS: NICOTINE POLACRILEX 4 MG GUM BUC PRN ×5 (09:10→22:04)
[2022-04-22] MEDS: NICOTINE 14 MG/24 HOURS TOPICAL PATCH TD SCH (10:00)
[2022-04-22] MEDS: PRENATAL VITAMINS W/ FOLIC ACID TABLET (FP) PO SCH (10:00)
[2022-04-22] MEDS: TIOTROPIUM BROMIDE 2.5 MCG (SPIRIVA) RESPIMAT INHALER IH SCH (10:01)
[2022-04-22] MEDS: levETIRAcetam 250 MG TABLET PO SCH ×2 (10:01→21:32)
[2022-04-22] MEDS: BUDESONIDE/FORMETEROL FUMARATE 160/4.5 mcg INHALER IH SCH ×2 (10:01→21:43)
[2022-04-22] MEDS: ACETAMINOPHEN 325 MG TABLET (FP) PO PRN ×2 (10:03→17:24)
[2022-04-22] MEDS: BENZOCAINE 20 % GEL TUBE MM PRN (13:20)
[2022-04-22] MEDS: QUEtiapine FUMARATE 300 MG TABLET PO SCH (21:33)
[2022-04-22] MEDS: DOCUSATE SODIUM 100 MG CAPSULE (FP) PO SCH (21:33)
[2022-04-22] MEDS: MIRTAZAPINE 15 MG TABLET (FP) PO SCH (21:33)
[2022-04-22] MEDS: THIAMINE HCL 100 MG TABLET (FP) PO SCH (21:33)
[2022-04-22] MEDS: METHOCARBAMOL 500 MG TABLET PO PRN (21:34)
[2022-04-22] MEDS: SUVOREXANT 10 MG TABLET PO PRN (21:34)
[2022-04-23] MEDS: AMOXICILLIN 500 MG CAPSULE (FP) PO SCH ×3 (06:13→21:44)
[2022-04-23] MEDS: IBUPROFEN 400 MG TABLET (FP) PO PRN ×2 (06:13→20:41)
[2022-04-23] MEDS: NICOTINE POLACRILEX 4 MG GUM BUC PRN ×5 (06:14→20:42)
[2022-04-23] MEDS: hydrOXYzine PAMOATE 25 MG CAPSULE (FP) PO PRN ×4 (06:14→20:41)
[2022-04-23] MEDS: levETIRAcetam 250 MG TABLET PO SCH ×2 (09:44→21:43)
[2022-04-23] MEDS: NICOTINE 14 MG/24 HOURS TOPICAL PATCH TD SCH (09:44)
[2022-04-23] MEDS: PRENATAL VITAMINS W/ FOLIC ACID TABLET (FP) PO SCH (09:44)
[2022-04-23] MEDS: BUDESONIDE/FORMETEROL FUMARATE 160/4.5 mcg INHALER IH SCH ×2 (09:45→21:48)
[2022-04-23] MEDS: TIOTROPIUM BROMIDE 2.5 MCG (SPIRIVA) RESPIMAT INHALER IH SCH (09:45)
[2022-04-23] MEDS: SUMAtriptan SUCCINATE 25 MG TABLET PO PRN (11:43)
[2022-04-23] MEDS: ACETAMINOPHEN 325 MG TABLET (FP) PO PRN (14:12)
[2022-04-23] MEDS: MAG HYDROX/AL HYDROX/SIMETH 30 ML UNIT-DOSE CUP PO PRN (17:16)
[2022-04-23] MEDS: MIRTAZAPINE 15 MG TABLET (FP) PO SCH (21:44)
[2022-04-23] MEDS: DOCUSATE SODIUM 100 MG CAPSULE (FP) PO SCH (21:44)
[2022-04-23] MEDS: QUEtiapine FUMARATE 300 MG TABLET PO SCH (21:44)
[2022-04-23] MEDS: THIAMINE HCL 100 MG TABLET (FP) PO SCH (21:44)
[2022-04-23] MEDS: SUVOREXANT 10 MG TABLET PO PRN (21:46)
[2022-04-24] MEDS: AMOXICILLIN 500 MG CAPSULE (FP) PO SCH ×3 (05:53→21:42)
[2022-04-24] MEDS: hydrOXYzine PAMOATE 25 MG CAPSULE (FP) PO PRN ×3 (05:53→16:34)
[2022-04-24] MEDS: NICOTINE POLACRILEX 4 MG GUM BUC PRN ×5 (05:56→16:33)
[2022-04-24] MEDS: levETIRAcetam 250 MG TABLET PO SCH ×2 (09:48→21:43)
[2022-04-24] MEDS: NICOTINE 14 MG/24 HOURS TOPICAL PATCH TD SCH (09:49)
[2022-04-24] MEDS: PRENATAL VITAMINS W/ FOLIC ACID TABLET (FP) PO SCH (09:49)
[2022-04-24] MEDS: SODIUM CHLORIDE NASAL SPRAY 44 ML BOTTLE NS PRN (09:50)
[2022-04-24] MEDS: BUDESONIDE/FORMETEROL FUMARATE 160/4.5 mcg INHALER IH SCH ×2 (10:32→21:48)
[2022-04-24] MEDS: IBUPROFEN 400 MG TABLET (FP) PO PRN (10:32)
[2022-04-24] MEDS: TIOTROPIUM BROMIDE 2.5 MCG (SPIRIVA) RESPIMAT INHALER IH SCH (11:11)
[2022-04-24] MEDS: NICOTINE 10 MG CARTRIDGE (INHALER) IH PRN ×2 (16:32→21:45)
[2022-04-24] MEDS: MIRTAZAPINE 15 MG TABLET (FP) PO SCH (21:43)
[2022-04-24] MEDS: DOCUSATE SODIUM 100 MG CAPSULE (FP) PO SCH (21:43)
[2022-04-24] MEDS: THIAMINE HCL 100 MG TABLET (FP) PO SCH (21:43)
[2022-04-24] MEDS: METHOCARBAMOL 500 MG TABLET PO PRN (21:44)
[2022-04-24] MEDS: QUEtiapine FUMARATE 300 MG TABLET PO SCH (21:44)
[2022-04-24] MEDS: SUVOREXANT 10 MG TABLET PO PRN (21:44)
[2022-04-25] MEDS: AMOXICILLIN 500 MG CAPSULE (FP) PO SCH ×3 (06:27→21:45)
[2022-04-25] MEDS: hydrOXYzine PAMOATE 25 MG CAPSULE (FP) PO PRN ×3 (06:27→14:25)
[2022-04-25] MEDS: NICOTINE POLACRILEX 4 MG GUM BUC PRN ×5 (06:30→21:51)
[2022-04-25] MEDS: MAG HYDROX/AL HYDROX/SIMETH 30 ML UNIT-DOSE CUP PO PRN (07:09)
[2022-04-25] MEDS: NICOTINE 10 MG CARTRIDGE (INHALER) IH PRN ×3 (10:06→21:51)
[2022-04-25] MEDS: PRENATAL VITAMINS W/ FOLIC ACID TABLET (FP) PO SCH (10:06)
[2022-04-25] MEDS: BUDESONIDE/FORMETEROL FUMARATE 160/4.5 mcg INHALER IH SCH ×2 (10:07→21:46)
[2022-04-25] MEDS: TIOTROPIUM BROMIDE 2.5 MCG (SPIRIVA) RESPIMAT INHALER IH SCH (10:07)
[2022-04-25] MEDS: levETIRAcetam 250 MG TABLET PO SCH ×2 (10:08→21:45)
[2022-04-25] MEDS: NICOTINE 14 MG/24 HOURS TOPICAL PATCH TD SCH (10:08)
[2022-04-25] MEDS: SUMAtriptan SUCCINATE 25 MG TABLET PO PRN (10:10)
[2022-04-25] MEDS: DOCUSATE SODIUM 100 MG CAPSULE (FP) PO SCH (21:45)
[2022-04-25] MEDS: THIAMINE HCL 100 MG TABLET (FP) PO SCH (21:45)
[2022-04-25] MEDS: QUEtiapine FUMARATE 300 MG TABLET PO SCH (21:46)
[2022-04-25] MEDS: MIRTAZAPINE 15 MG TABLET (FP) PO SCH (21:46)
[2022-04-25] MEDS: SUVOREXANT 10 MG TABLET PO PRN (21:48)
[2022-04-25] MEDS: MAGNESIUM HYDROX 2400MG/30ML ORAL SUSPENSION 30 ML CUP PO PRN (21:48)
[2022-04-26] MEDS: hydrOXYzine PAMOATE 25 MG CAPSULE (FP) PO PRN ×4 (06:14→19:01)
[2022-04-26] MEDS: AMOXICILLIN 500 MG CAPSULE (FP) PO SCH (06:14)
[2022-04-26] MEDS: TIOTROPIUM BROMIDE 2.5 MCG (SPIRIVA) RESPIMAT INHALER IH SCH (10:26)
[2022-04-26] MEDS: PRENATAL VITAMINS W/ FOLIC ACID TABLET (FP) PO SCH (10:26)
[2022-04-26] MEDS: SODIUM CHLORIDE NASAL SPRAY 44 ML BOTTLE NS PRN (10:27)
[2022-04-26] MEDS: levETIRAcetam 250 MG TABLET PO SCH ×2 (10:28→21:28)
[2022-04-26] MEDS: BUDESONIDE/FORMETEROL FUMARATE 160/4.5 mcg INHALER IH SCH ×2 (10:28→21:28)
[2022-04-26] MEDS: NICOTINE 14 MG/24 HOURS TOPICAL PATCH TD SCH (10:28)
[2022-04-26] MEDS: MAGNESIUM HYDROX 2400MG/30ML ORAL SUSPENSION 30 ML CUP PO PRN (12:24)
[2022-04-26] MEDS: NICOTINE 10 MG CARTRIDGE (INHALER) IH PRN (18:14)
[2022-04-26] MEDS: NICOTINE POLACRILEX 4 MG GUM BUC PRN (18:14)
[2022-04-26] MEDS: SUMAtriptan SUCCINATE 25 MG TABLET PO PRN (19:01)
[2022-04-26] MEDS: MIRTAZAPINE 15 MG TABLET (FP) PO SCH (21:28)
[2022-04-26] MEDS: QUEtiapine FUMARATE 300 MG TABLET PO SCH (21:28)
[2022-04-26] MEDS: DOCUSATE SODIUM 100 MG CAPSULE (FP) PO SCH (21:28)
[2022-04-26] MEDS: THIAMINE HCL 100 MG TABLET (FP) PO SCH (21:29)
[2022-04-26] MEDS: SUVOREXANT 10 MG TABLET PO PRN (21:31)
[2022-04-27] MEDS: hydrOXYzine PAMOATE 25 MG CAPSULE (FP) PO PRN ×4 (03:11→21:38)
[2022-04-27] MEDS: NICOTINE POLACRILEX 4 MG GUM BUC PRN ×6 (03:12→21:40)
[2022-04-27] MEDS: IBUPROFEN 400 MG TABLET (FP) PO PRN (05:57)
[2022-04-27] MEDS: NICOTINE 10 MG CARTRIDGE (INHALER) IH PRN ×3 (09:02→21:39)
[2022-04-27] MEDS: NICOTINE 14 MG/24 HOURS TOPICAL PATCH TD SCH (10:00)
[2022-04-27] MEDS: PRENATAL VITAMINS W/ FOLIC ACID TABLET (FP) PO SCH (10:01)
[2022-04-27] MEDS: BUDESONIDE/FORMETEROL FUMARATE 160/4.5 mcg INHALER IH SCH ×2 (10:02→22:14)
[2022-04-27] MEDS: TIOTROPIUM BROMIDE 2.5 MCG (SPIRIVA) RESPIMAT INHALER IH SCH (10:02)
[2022-04-27] MEDS: levETIRAcetam 250 MG TABLET PO SCH ×2 (10:03→21:36)
[2022-04-27] MEDS: METHOCARBAMOL 500 MG TABLET PO PRN ×3 (11:12→19:43)
[2022-04-27] MEDS ORDERED: FLUCONAZOLE 50 MG TABLET PO ONE (13:45)
[2022-04-27] MEDS: QUEtiapine FUMARATE 300 MG TABLET PO SCH (21:35)
[2022-04-27] MEDS: DOCUSATE SODIUM 100 MG CAPSULE (FP) PO SCH (21:36)
[2022-04-27] MEDS: THIAMINE HCL 100 MG TABLET (FP) PO SCH (21:36)
[2022-04-27] MEDS: MIRTAZAPINE 15 MG TABLET (FP) PO SCH (21:38)
[2022-04-27] MEDS: SUVOREXANT 10 MG TABLET PO PRN (21:38)
[2022-04-28] MEDS: METHOCARBAMOL 500 MG TABLET PO PRN ×3 (06:05→21:31)
[2022-04-28] MEDS: hydrOXYzine PAMOATE 25 MG CAPSULE (FP) PO PRN ×4 (06:06→21:31)
[2022-04-28] MEDS: NICOTINE POLACRILEX 4 MG GUM BUC PRN ×5 (06:09→20:11)
[2022-04-28] MEDS: TIOTROPIUM BROMIDE 2.5 MCG (SPIRIVA) RESPIMAT INHALER IH SCH (09:39)
[2022-04-28] MEDS: NICOTINE 14 MG/24 HOURS TOPICAL PATCH TD SCH (09:39)
[2022-04-28] MEDS: PRENATAL VITAMINS W/ FOLIC ACID TABLET (FP) PO SCH (09:39)
[2022-04-28] MEDS: levETIRAcetam 250 MG TABLET PO SCH ×2 (09:39→21:31)
[2022-04-28] MEDS: BUDESONIDE/FORMETEROL FUMARATE 160/4.5 mcg INHALER IH SCH ×2 (09:40→21:44)
[2022-04-28] MEDS: NICOTINE 10 MG CARTRIDGE (INHALER) IH PRN (20:11)
[2022-04-28] MEDS: DOCUSATE SODIUM 100 MG CAPSULE (FP) PO SCH (21:30)
[2022-04-28] MEDS: QUEtiapine FUMARATE 300 MG TABLET PO SCH (21:30)
[2022-04-28] MEDS: MIRTAZAPINE 15 MG TABLET (FP) PO SCH (21:30)
[2022-04-28] MEDS: THIAMINE HCL 100 MG TABLET (FP) PO SCH (21:30)
[2022-04-28] MEDS: SUVOREXANT 10 MG TABLET PO PRN (21:31)
[2022-04-29] MEDS: hydrOXYzine PAMOATE 25 MG CAPSULE (FP) PO PRN ×4 (06:16→19:18)
[2022-04-29] MEDS: NICOTINE POLACRILEX 4 MG GUM BUC PRN ×6 (06:16→21:13)
[2022-04-29] MEDS: NICOTINE 10 MG CARTRIDGE (INHALER) IH PRN ×4 (06:16→17:49)
[2022-04-29] MEDS: COLLOIDAL OATMEAL 1 BAR EACH TP PRN (07:02)
[2022-04-29] MEDS: METHOCARBAMOL 500 MG TABLET PO PRN ×2 (09:02→21:14)
[2022-04-29] MEDS: levETIRAcetam 250 MG TABLET PO SCH ×2 (09:47→21:11)
[2022-04-29] MEDS: NICOTINE 14 MG/24 HOURS TOPICAL PATCH TD SCH (09:48)
[2022-04-29] MEDS: PRENATAL VITAMINS W/ FOLIC ACID TABLET (FP) PO SCH (09:48)
[2022-04-29] MEDS: TIOTROPIUM BROMIDE 2.5 MCG (SPIRIVA) RESPIMAT INHALER IH SCH (09:50)
[2022-04-29] MEDS: BUDESONIDE/FORMETEROL FUMARATE 160/4.5 mcg INHALER IH SCH ×2 (09:50→21:14)
[2022-04-29] MEDS: SUMAtriptan SUCCINATE 25 MG TABLET PO PRN (09:53)
[2022-04-29] MEDS: IBUPROFEN 400 MG TABLET (FP) PO PRN (14:11)
[2022-04-29] MEDS: SUVOREXANT 10 MG TABLET PO PRN (21:10)
[2022-04-29] MEDS: QUEtiapine FUMARATE 300 MG TABLET PO SCH (21:11)
[2022-04-29] MEDS: DOCUSATE SODIUM 100 MG CAPSULE (FP) PO SCH (21:11)
[2022-04-29] MEDS: MIRTAZAPINE 15 MG TABLET (FP) PO SCH (21:12)
[2022-04-29] MEDS: THIAMINE HCL 100 MG TABLET (FP) PO SCH (21:12)
[2022-04-30] MEDS: hydrOXYzine PAMOATE 25 MG CAPSULE (FP) PO PRN ×4 (04:06→21:43)
[2022-04-30] MEDS: NICOTINE 10 MG CARTRIDGE (INHALER) IH PRN ×5 (04:06→21:44)
[2022-04-30] MEDS: NICOTINE POLACRILEX 4 MG GUM BUC PRN ×6 (04:06→21:45)
[2022-04-30] MEDS: IBUPROFEN 400 MG TABLET (FP) PO PRN (05:59)
[2022-04-30] MEDS: NICOTINE 14 MG/24 HOURS TOPICAL PATCH TD SCH (10:19)
[2022-04-30] MEDS: PRENATAL VITAMINS W/ FOLIC ACID TABLET (FP) PO SCH (10:19)
[2022-04-30] MEDS: TIOTROPIUM BROMIDE 2.5 MCG (SPIRIVA) RESPIMAT INHALER IH SCH (10:22)
[2022-04-30] MEDS: SUMAtriptan SUCCINATE 25 MG TABLET PO PRN (10:22)
[2022-04-30] MEDS: levETIRAcetam 250 MG TABLET PO SCH ×2 (10:23→21:38)
[2022-04-30] MEDS: METHOCARBAMOL 500 MG TABLET PO PRN ×3 (10:26→21:43)
[2022-04-30] MEDS: BUDESONIDE/FORMETEROL FUMARATE 160/4.5 mcg INHALER IH SCH ×2 (11:19→21:37)
[2022-04-30] MEDS: BENZOCAINE 20 % GEL TUBE MM PRN (14:28)
[2022-04-30] MEDS: DOCUSATE SODIUM 100 MG CAPSULE (FP) PO SCH (21:38)
[2022-04-30] MEDS: MIRTAZAPINE 15 MG TABLET (FP) PO SCH (21:38)
[2022-04-30] MEDS: THIAMINE HCL 100 MG TABLET (FP) PO SCH (21:39)
[2022-04-30] MEDS: QUEtiapine FUMARATE 300 MG TABLET PO SCH (21:39)
[2022-04-30] MEDS: SUVOREXANT 10 MG TABLET PO PRN (21:42)
[2022-05-01] MEDS: hydrOXYzine PAMOATE 25 MG CAPSULE (FP) PO PRN ×4 (03:09→17:51)
[2022-05-01] MEDS: NICOTINE 10 MG CARTRIDGE (INHALER) IH PRN ×5 (06:09→21:37)
[2022-05-01] MEDS: NICOTINE POLACRILEX 4 MG GUM BUC PRN ×4 (08:53→21:37)
[2022-05-01] MEDS: levETIRAcetam 250 MG TABLET PO SCH ×2 (10:02→21:35)
[2022-05-01] MEDS: NICOTINE 14 MG/24 HOURS TOPICAL PATCH TD SCH (10:02)
[2022-05-01] MEDS: PRENATAL VITAMINS W/ FOLIC ACID TABLET (FP) PO SCH (10:02)
[2022-05-01] MEDS: TIOTROPIUM BROMIDE 2.5 MCG (SPIRIVA) RESPIMAT INHALER IH SCH (10:04)
[2022-05-01] MEDS: BUDESONIDE/FORMETEROL FUMARATE 160/4.5 mcg INHALER IH SCH ×2 (10:05→21:46)
[2022-05-01] MEDS: MAGNESIUM HYDROX 2400MG/30ML ORAL SUSPENSION 30 ML CUP PO PRN (11:15)
[2022-05-01] MEDS: METHOCARBAMOL 500 MG TABLET PO PRN (17:13)
[2022-05-01] MEDS: MIRTAZAPINE 15 MG TABLET (FP) PO SCH (21:35)
[2022-05-01] MEDS: DOCUSATE SODIUM 100 MG CAPSULE (FP) PO SCH (21:35)
[2022-05-01] MEDS: QUEtiapine FUMARATE 300 MG TABLET PO SCH (21:36)
[2022-05-01] MEDS: SUVOREXANT 10 MG TABLET PO PRN (21:36)
[2022-05-01] MEDS: THIAMINE HCL 100 MG TABLET (FP) PO SCH (21:36)
[2022-05-02] MEDS: METHOCARBAMOL 500 MG TABLET PO PRN ×2 (06:06→17:43)
[2022-05-02] MEDS: hydrOXYzine PAMOATE 25 MG CAPSULE (FP) PO PRN ×4 (06:06→21:33)
[2022-05-02] MEDS: NICOTINE POLACRILEX 4 MG GUM BUC PRN ×5 (06:07→21:34)
[2022-05-02] MEDS: NICOTINE 10 MG CARTRIDGE (INHALER) IH PRN ×4 (07:01→21:33)
[2022-05-02] MEDS: PRENATAL VITAMINS W/ FOLIC ACID TABLET (FP) PO SCH (09:38)
[2022-05-02] MEDS: levETIRAcetam 250 MG TABLET PO SCH ×2 (09:38→21:33)
[2022-05-02] MEDS: NICOTINE 14 MG/24 HOURS TOPICAL PATCH TD SCH (09:38)
[2022-05-02] MEDS: TIOTROPIUM BROMIDE 2.5 MCG (SPIRIVA) RESPIMAT INHALER IH SCH (09:38)
[2022-05-02] MEDS: BUDESONIDE/FORMETEROL FUMARATE 160/4.5 mcg INHALER IH SCH ×2 (09:39→21:53)
[2022-05-02] MEDS: MAGNESIUM HYDROX 2400MG/30ML ORAL SUSPENSION 30 ML CUP PO PRN (10:09)
[2022-05-02] MEDS: THIAMINE HCL 100 MG TABLET (FP) PO SCH (21:32)
[2022-05-02] MEDS: MIRTAZAPINE 15 MG TABLET (FP) PO SCH (21:33)
[2022-05-02] MEDS: QUEtiapine FUMARATE 300 MG TABLET PO SCH (21:33)
[2022-05-02] MEDS: SUVOREXANT 10 MG TABLET PO PRN (21:33)
[2022-05-02] MEDS: DOCUSATE SODIUM 100 MG CAPSULE (FP) PO SCH (21:33)
[2022-05-03] MEDS: hydrOXYzine PAMOATE 25 MG CAPSULE (FP) PO PRN ×4 (06:21→21:39)
[2022-05-03] MEDS: NICOTINE POLACRILEX 4 MG GUM BUC PRN ×4 (06:21→21:42)
[2022-05-03] MEDS: NICOTINE 10 MG CARTRIDGE (INHALER) IH PRN ×3 (08:51→21:41)
[2022-05-03] MEDS: levETIRAcetam 250 MG TABLET PO SCH ×2 (09:37→21:39)
[2022-05-03] MEDS: PRENATAL VITAMINS W/ FOLIC ACID TABLET (FP) PO SCH (09:37)
[2022-05-03] MEDS: METHOCARBAMOL 500 MG TABLET PO PRN ×2 (09:37→21:39)
[2022-05-03] MEDS: BUDESONIDE/FORMETEROL FUMARATE 160/4.5 mcg INHALER IH SCH ×2 (09:37→21:39)
[2022-05-03] MEDS: NICOTINE 14 MG/24 HOURS TOPICAL PATCH TD SCH (09:37)
[2022-05-03] MEDS: TIOTROPIUM BROMIDE 2.5 MCG (SPIRIVA) RESPIMAT INHALER IH SCH (09:40)
[2022-05-03] MEDS: IBUPROFEN 400 MG TABLET (FP) PO PRN (11:28)
[2022-05-03] MEDS: MIRTAZAPINE 15 MG TABLET (FP) PO SCH (21:38)
[2022-05-03] MEDS: DOCUSATE SODIUM 100 MG CAPSULE (FP) PO SCH (21:39)
[2022-05-03] MEDS: THIAMINE HCL 100 MG TABLET (FP) PO SCH (21:39)
[2022-05-03] MEDS: QUEtiapine FUMARATE 300 MG TABLET PO SCH (21:39)
[2022-05-03] MEDS: SUVOREXANT 10 MG TABLET PO PRN (21:40)
[2022-05-04] MEDS: hydrOXYzine PAMOATE 25 MG CAPSULE (FP) PO PRN ×3 (05:55→16:00)
[2022-05-04] MEDS: NICOTINE POLACRILEX 4 MG GUM BUC PRN ×5 (05:57→20:14)
[2022-05-04] MEDS: NICOTINE 10 MG CARTRIDGE (INHALER) IH PRN ×6 (06:22→21:46)
[2022-05-04] MEDS: COLLOIDAL OATMEAL 1 BAR EACH TP PRN (06:23)
[2022-05-04 07:23] VITALS: RESP 18
[2022-05-04] MEDS: levETIRAcetam 250 MG TABLET PO SCH ×2 (10:11→21:43)
[2022-05-04] MEDS: PRENATAL VITAMINS W/ FOLIC ACID TABLET (FP) PO SCH (10:11)
[2022-05-04] MEDS: NICOTINE 14 MG/24 HOURS TOPICAL PATCH TD SCH (10:11)
[2022-05-04] MEDS: BUDESONIDE/FORMETEROL FUMARATE 160/4.5 mcg INHALER IH SCH ×2 (10:11→21:42)
[2022-05-04] MEDS: TIOTROPIUM BROMIDE 2.5 MCG (SPIRIVA) RESPIMAT INHALER IH SCH (10:11)
[2022-05-04] MEDS: METHOCARBAMOL 500 MG TABLET PO PRN (10:11)
[2022-05-04] MEDS: SUVOREXANT 10 MG TABLET PO PRN (21:42)
[2022-05-04] MEDS: QUEtiapine FUMARATE 300 MG TABLET PO SCH (21:43)
[2022-05-04] MEDS: MIRTAZAPINE 15 MG TABLET (FP) PO SCH (21:43)
[2022-05-04] MEDS: DOCUSATE SODIUM 100 MG CAPSULE (FP) PO SCH (21:43)
[2022-05-04] MEDS: THIAMINE HCL 100 MG TABLET (FP) PO SCH (21:44)
[2022-05-05] MEDS: NICOTINE POLACRILEX 4 MG GUM BUC PRN ×6 (05:58→22:34)
[2022-05-05] MEDS: NICOTINE 10 MG CARTRIDGE (INHALER) IH PRN ×6 (05:58→22:33)
[2022-05-05] MEDS: hydrOXYzine PAMOATE 25 MG CAPSULE (FP) PO PRN ×3 (05:59→14:55)
[2022-05-05] MEDS: METHOCARBAMOL 500 MG TABLET PO PRN ×3 (05:59→21:56)
[2022-05-05] MEDS: NICOTINE 14 MG/24 HOURS TOPICAL PATCH TD SCH (10:04)
[2022-05-05] MEDS: PRENATAL VITAMINS W/ FOLIC ACID TABLET (FP) PO SCH (10:04)
[2022-05-05] MEDS: IBUPROFEN 400 MG TABLET (FP) PO PRN (10:04)
[2022-05-05] MEDS: levETIRAcetam 250 MG TABLET PO SCH ×2 (10:04→21:55)
[2022-05-05] MEDS: TIOTROPIUM BROMIDE 2.5 MCG (SPIRIVA) RESPIMAT INHALER IH SCH (10:42)
[2022-05-05] MEDS: BUDESONIDE/FORMETEROL FUMARATE 160/4.5 mcg INHALER IH SCH ×2 (10:42→21:56)
[2022-05-05] MEDS: MAGNESIUM HYDROX 2400MG/30ML ORAL SUSPENSION 30 ML CUP PO PRN (10:43)
[2022-05-05] MEDS: THIAMINE HCL 100 MG TABLET (FP) PO SCH (21:54)
[2022-05-05] MEDS: DOCUSATE SODIUM 100 MG CAPSULE (FP) PO SCH (21:55)
[2022-05-05] MEDS: MIRTAZAPINE 15 MG TABLET (FP) PO SCH (21:55)
[2022-05-05] MEDS: QUEtiapine FUMARATE 300 MG TABLET PO SCH (21:55)
[2022-05-05] MEDS: SUVOREXANT 10 MG TABLET PO PRN (21:56)
[2022-05-06] MEDS: NICOTINE POLACRILEX 4 MG GUM BUC PRN ×6 (02:00→21:43)
[2022-05-06] MEDS: NICOTINE 10 MG CARTRIDGE (INHALER) IH PRN ×6 (05:54→21:42)
[2022-05-06] MEDS: hydrOXYzine PAMOATE 25 MG CAPSULE (FP) PO PRN ×4 (05:54→21:41)
[2022-05-06] MEDS: MAG HYDROX/AL HYDROX/SIMETH 30 ML UNIT-DOSE CUP PO PRN (09:46)
[2022-05-06] MEDS: TIOTROPIUM BROMIDE 2.5 MCG (SPIRIVA) RESPIMAT INHALER IH SCH (09:47)
[2022-05-06] MEDS: BUDESONIDE/FORMETEROL FUMARATE 160/4.5 mcg INHALER IH SCH ×2 (09:47→21:45)
[2022-05-06] MEDS: levETIRAcetam 250 MG TABLET PO SCH ×2 (09:47→21:41)
[2022-05-06] MEDS: NICOTINE 14 MG/24 HOURS TOPICAL PATCH TD SCH (09:48)
[2022-05-06] MEDS: PRENATAL VITAMINS W/ FOLIC ACID TABLET (FP) PO SCH (09:48)
[2022-05-06] MEDS: METHOCARBAMOL 500 MG TABLET PO PRN (15:17)
[2022-05-06] MEDS: SUMAtriptan SUCCINATE 25 MG TABLET PO PRN (15:17)
[2022-05-06] MEDS: MIRTAZAPINE 15 MG TABLET (FP) PO SCH (21:41)
[2022-05-06] MEDS: DOCUSATE SODIUM 100 MG CAPSULE (FP) PO SCH (21:41)
[2022-05-06] MEDS: SUVOREXANT 10 MG TABLET PO PRN (21:41)
[2022-05-06] MEDS: THIAMINE HCL 100 MG TABLET (FP) PO SCH (21:41)
[2022-05-06] MEDS: QUEtiapine FUMARATE 300 MG TABLET PO SCH (21:41)
[2022-05-07] MEDS: NICOTINE 10 MG CARTRIDGE (INHALER) IH PRN ×5 (01:25→19:53)
[2022-05-07] MEDS: NICOTINE POLACRILEX 4 MG GUM BUC PRN ×6 (01:27→22:00)
[2022-05-07] MEDS: hydrOXYzine PAMOATE 25 MG CAPSULE (FP) PO PRN ×4 (05:54→19:54)
[2022-05-07] MEDS: METHOCARBAMOL 500 MG TABLET PO PRN ×2 (05:54→19:55)
[2022-05-07] MEDS: levETIRAcetam 250 MG TABLET PO SCH ×2 (10:15→21:34)
[2022-05-07] MEDS: MAG HYDROX/AL HYDROX/SIMETH 30 ML UNIT-DOSE CUP PO PRN ×2 (10:16→18:02)
[2022-05-07] MEDS: PRENATAL VITAMINS W/ FOLIC ACID TABLET (FP) PO SCH (10:16)
[2022-05-07] MEDS: NICOTINE 14 MG/24 HOURS TOPICAL PATCH TD SCH (10:16)
[2022-05-07] MEDS: TIOTROPIUM BROMIDE 2.5 MCG (SPIRIVA) RESPIMAT INHALER IH SCH (10:16)
[2022-05-07] MEDS: BUDESONIDE/FORMETEROL FUMARATE 160/4.5 mcg INHALER IH SCH ×2 (10:16→21:48)
[2022-05-07] MEDS: DOCUSATE SODIUM 100 MG CAPSULE (FP) PO SCH (21:34)
[2022-05-07] MEDS: THIAMINE HCL 100 MG TABLET (FP) PO SCH (21:35)
[2022-05-07] MEDS: MIRTAZAPINE 15 MG TABLET (FP) PO SCH (21:35)
[2022-05-07] MEDS: QUEtiapine FUMARATE 300 MG TABLET PO SCH (21:35)
[2022-05-07] MEDS: SUVOREXANT 10 MG TABLET PO PRN (21:35)
[2022-05-08] MEDS: NICOTINE 10 MG CARTRIDGE (INHALER) IH PRN ×7 (03:11→23:18)
[2022-05-08] MEDS: NICOTINE POLACRILEX 4 MG GUM BUC PRN ×6 (03:12→21:05)
[2022-05-08] MEDS: hydrOXYzine PAMOATE 25 MG CAPSULE (FP) PO PRN ×3 (06:04→17:27)
[2022-05-08] MEDS: TIOTROPIUM BROMIDE 2.5 MCG (SPIRIVA) RESPIMAT INHALER IH SCH (09:45)
[2022-05-08] MEDS: PRENATAL VITAMINS W/ FOLIC ACID TABLET (FP) PO SCH (09:45)
[2022-05-08] MEDS: levETIRAcetam 250 MG TABLET PO SCH ×2 (09:45→21:02)
[2022-05-08] MEDS: BUDESONIDE/FORMETEROL FUMARATE 160/4.5 mcg INHALER IH SCH ×2 (09:45→21:02)
[2022-05-08] MEDS: NICOTINE 14 MG/24 HOURS TOPICAL PATCH TD SCH (09:46)
[2022-05-08] MEDS: METHOCARBAMOL 500 MG TABLET PO PRN ×2 (09:46→17:27)
[2022-05-08] MEDS: SUVOREXANT 10 MG TABLET PO PRN (21:02)
[2022-05-08] MEDS: QUEtiapine FUMARATE 300 MG TABLET PO SCH (21:02)
[2022-05-08] MEDS: DOCUSATE SODIUM 100 MG CAPSULE (FP) PO SCH (21:03)
[2022-05-08] MEDS: MIRTAZAPINE 15 MG TABLET (FP) PO SCH (21:03)
[2022-05-08] MEDS: THIAMINE HCL 100 MG TABLET (FP) PO SCH (21:04)
[2022-05-09] MEDS: NICOTINE POLACRILEX 4 MG GUM BUC PRN ×6 (03:45→21:51)
[2022-05-09] MEDS: hydrOXYzine PAMOATE 25 MG CAPSULE (FP) PO PRN ×4 (05:56→18:57)
[2022-05-09] MEDS: NICOTINE 10 MG CARTRIDGE (INHALER) IH PRN ×6 (05:58→21:50)
[2022-05-09] MEDS: BUDESONIDE/FORMETEROL FUMARATE 160/4.5 mcg INHALER IH SCH ×2 (10:29→21:48)
[2022-05-09] MEDS: levETIRAcetam 250 MG TABLET PO SCH ×2 (10:30→21:48)
[2022-05-09] MEDS: TIOTROPIUM BROMIDE 2.5 MCG (SPIRIVA) RESPIMAT INHALER IH SCH (10:30)
[2022-05-09] MEDS: PRENATAL VITAMINS W/ FOLIC ACID TABLET (FP) PO SCH (10:30)
[2022-05-09] MEDS: NICOTINE 14 MG/24 HOURS TOPICAL PATCH TD SCH (10:31)
[2022-05-09] MEDS: METHOCARBAMOL 500 MG TABLET PO PRN ×2 (10:33→18:57)
[2022-05-09] MEDS: QUEtiapine FUMARATE 300 MG TABLET PO SCH (21:48)
[2022-05-09] MEDS: DOCUSATE SODIUM 100 MG CAPSULE (FP) PO SCH (21:48)
[2022-05-09] MEDS: MIRTAZAPINE 15 MG TABLET (FP) PO SCH (21:49)
[2022-05-09] MEDS: THIAMINE HCL 100 MG TABLET (FP) PO SCH (21:50)
[2022-05-09] MEDS: SUVOREXANT 10 MG TABLET PO PRN (21:52)
[2022-05-10] MEDS: NICOTINE 10 MG CARTRIDGE (INHALER) IH PRN ×6 (04:15→21:42)
[2022-05-10] MEDS: NICOTINE POLACRILEX 4 MG GUM BUC PRN ×4 (04:15→21:43)
[2022-05-10] MEDS: COLLOIDAL OATMEAL 1 BAR EACH TP PRN (04:17)
[2022-05-10] MEDS: hydrOXYzine PAMOATE 25 MG CAPSULE (FP) PO PRN ×3 (06:25→15:57)
[2022-05-10] MEDS: METHOCARBAMOL 500 MG TABLET PO PRN ×2 (08:07→20:31)
[2022-05-10] MEDS: levETIRAcetam 250 MG TABLET PO SCH ×2 (10:22→21:41)
[2022-05-10] MEDS: PRENATAL VITAMINS W/ FOLIC ACID TABLET (FP) PO SCH (10:22)
[2022-05-10] MEDS: NICOTINE 14 MG/24 HOURS TOPICAL PATCH TD SCH (10:22)
[2022-05-10] MEDS: TIOTROPIUM BROMIDE 2.5 MCG (SPIRIVA) RESPIMAT INHALER IH SCH (10:23)
[2022-05-10] MEDS: BUDESONIDE/FORMETEROL FUMARATE 160/4.5 mcg INHALER IH SCH ×2 (10:24→21:40)
[2022-05-10] MEDS: MAG HYDROX/AL HYDROX/SIMETH 30 ML UNIT-DOSE CUP PO PRN (15:57)
[2022-05-10] MEDS: THIAMINE HCL 100 MG TABLET (FP) PO SCH (21:40)
[2022-05-10] MEDS: DOCUSATE SODIUM 100 MG CAPSULE (FP) PO SCH (21:40)
[2022-05-10] MEDS: QUEtiapine FUMARATE 300 MG TABLET PO SCH (21:40)
[2022-05-10] MEDS: MIRTAZAPINE 15 MG TABLET (FP) PO SCH (21:40)
[2022-05-10] MEDS: SUVOREXANT 10 MG TABLET PO PRN (21:42)
[2022-05-11] MEDS: hydrOXYzine PAMOATE 25 MG CAPSULE (FP) PO PRN ×2 (03:42→09:51)
[2022-05-11] MEDS: NICOTINE POLACRILEX 4 MG GUM BUC PRN ×2 (03:43→09:56)
[2022-05-11] MEDS: METHOCARBAMOL 500 MG TABLET PO PRN (06:11)
[2022-05-11 07:56] VITALS: BP 106/63; PULSE 74; TEMP 98.1
[2022-05-11] MEDS: BUDESONIDE/FORMETEROL FUMARATE 160/4.5 mcg INHALER IH SCH (09:50)
[2022-05-11] MEDS: TIOTROPIUM BROMIDE 2.5 MCG (SPIRIVA) RESPIMAT INHALER IH SCH (09:50)
[2022-05-11] MEDS: levETIRAcetam 250 MG TABLET PO SCH (09:51)
[2022-05-11] MEDS: PRENATAL VITAMINS W/ FOLIC ACID TABLET (FP) PO SCH (09:52)
[2022-05-11] MEDS: SUMAtriptan SUCCINATE 25 MG TABLET PO PRN (09:52)
[2022-05-11] MEDS: NICOTINE 10 MG CARTRIDGE (INHALER) IH PRN (09:53)
[2022-05-11] MEDS: NICOTINE 14 MG/24 HOURS TOPICAL PATCH TD SCH (09:54)
== END 2022-05-11 10:55 | disposition home or self-care (01) | DRG 772 ==
LOC: YASAS 18:44 → Y5N 18:45
PROVIDERS: ADMIT Allergy & Immunology; ATTEND Allergy & Immunology
PROC: HZ42ZZZ Group Counseling for Substance Abuse Treatment, Cognitive-Behavioral (ICD-10-PCS; principal; 2022-04-14)
DX: F10.20 Alcohol dependence, uncomplicated (principal); F11.20 Opioid dependence, uncomplicated; F14.20 Cocaine dependence, uncomplicated; F13.20 Sedative, hypnotic or anxiolytic dependence, uncomplicated; F17.210 Nicotine dependence, cigarettes, uncomplicated; F19.282 Other psychoactive substance dependence with psychoactive substance-induced sleep disorder; F19.280 Other psychoactive substance dependence with psychoactive substance-induced anxiety disorder; F31.81 Bipolar II disorder; I10 Essential (primary) hypertension; K59.00 Constipation, unspecified; K04.7 Periapical abscess without sinus; K05.10 Chronic gingivitis, plaque induced; M79.7 Fibromyalgia; R56.9 Unspecified convulsions; Z88.8 Allergy status to other drugs, medicaments and biological substances
CPT/HCPCS: 36415; 80177; G0008; Q2036

== ENCOUNTER 2023-04-26 09:42 | Inpatient (IN) | payer OTHER ==
[2023-04-26] MEDS ORDERED: LOPERAMIDE HCL 2 MG CAPSULE PO PRN (12:29)
[2023-04-26] MEDS ORDERED: DICYCLOMINE HCL 10 MG CAPSULE PO PRN (12:29)
[2023-04-26] MEDS ORDERED: POLYETHYLENE GLYCOL (HEALTHYLAX) 3350 17 GM PACKET PO PRN (12:29)
[2023-04-26] MEDS ORDERED: BISMUTH SUBSALICYLATE 262 MG/15 ML BTL PO PRN (12:29)
[2023-04-26] MEDS ORDERED: NALOXONE HCL (KLOXXADO) 8 MG SPRAY NS PRN (12:29)
[2023-04-26] MEDS ORDERED: guaiFENesin 600 MG TABLET.ER (FP) PO PRN (12:29)
[2023-04-26] MEDS ORDERED: NALOXONE HCL 0.4 MG/ML VIAL IM PRN (12:29)
[2023-04-26] MEDS ORDERED: BENZOCAINE/MENTHOL (CHLORASEPTIC ) LOZENGE MM PRN (12:29)
[2023-04-26] MEDS ORDERED: BENZONATATE 200 MG CAPSULE PO PRN (12:29)
[2023-04-26] MEDS ORDERED: IBUPROFEN 400 MG TABLET (FP) PO PRN (12:29)
[2023-04-26] MEDS: IBUPROFEN 600 MG TABLET (FP) PO PRN (14:45)
[2023-04-26] MEDS: NICOTINE POLACRILEX 2 MG GUM BUC PRN (14:45)
[2023-04-26] MEDS: hydrOXYzine PAMOATE 25 MG CAPSULE (FP) PO PRN (14:46)
[2023-04-26] MEDS: ONDANSETRON *ODT* 4 MG TABLET SL PRN (14:47)
[2023-04-26] MEDS: METHOCARBAMOL 500 MG TABLET PO PRN (18:21)
[2023-04-26] MEDS: THIAMINE HCL 100 MG TABLET (FP) PO SCH (22:07)
[2023-04-26] MEDS: MELATONIN 5 MG TABLETS PO SCH (22:07)
[2023-04-26] MEDS: ALBUTEROL SO4 HFA INHALER IH PRN (22:07)
[2023-04-26] MEDS: QUEtiapine FUMARATE 300 MG TABLET PO SCH (22:08)
[2023-04-26] MEDS: DOCUSATE SODIUM 100 MG CAPSULE (FP) PO SCH (22:08)
[2023-04-26] MEDS: MIRTAZAPINE 15 MG TABLET (FP) PO SCH (22:08)
[2023-04-26] MEDS: BUDESONIDE/FORMETEROL FUMARATE 160/4.5 mcg INHALER IH SCH (22:09)
[2023-04-26] MEDS: chlordiazePOXIDE HCL 25 MG CAPSULE PO SCH (22:09)
[2023-04-26] MEDS: levETIRAcetam 250 MG TABLET PO SCH (22:09)
[2023-04-27] MEDS ORDERED: methaDONE HCL 10 MG TABLET PO SCH (07:45)
[2023-04-27] MEDS: PRENATAL VITAMINS W/ FOLIC ACID TABLET (FP) PO SCH (09:08)
[2023-04-27] MEDS: NICOTINE 14 MG/24 HOURS TOPICAL PATCH TD SCH (09:09)
[2023-04-27] MEDS: TIOTROPIUM BROMIDE 2.5 MCG (SPIRIVA) RESPIMAT INHALER IH SCH (10:08)
[2023-04-27 10:31] LABS: HEMATOCRIT 36.8 % (32.4-45.2); HEMOGLOBIN 12.1 GM/dL (10.7-15.3); MCH 29.8 pg (25.7-33.7); MEAN CELL VOLUME 90.2 fl (80-96); MEAN PLT VOLUME 8.7 fl (7.5-11.1); PLATELET COUNT 260 10^3/uL (134-434); RBC 4.08 M/mm3 (3.60-5.2); RDW 15.1 % (11.6-15.6); WHITE BLOOD COUNT 5.7 K/mm3 (4.0-10.0)
[2023-04-27] MEDS: MAG HYDROX/AL HYDROX/SIMETH 30 ML UNIT-DOSE CUP PO PRN (17:21)
[2023-04-28] MEDS: chlordiazePOXIDE HCL 25 MG CAPSULE PO SCH (05:18)
[2023-04-28] MEDS: hydrOXYzine PAMOATE 25 MG CAPSULE (FP) PO PRN (12:46)
[2023-04-28] MEDS: chlordiazePOXIDE HCL 25 MG CAPSULE PO PRN (13:55)
[2023-04-28] MEDS: MAGNESIUM HYDROX 2400MG/30ML ORAL SUSPENSION 30 ML CUP PO PRN (20:52)
[2023-04-28] MEDS ORDERED: AMOXICILLIN 500 MG CAPSULE (FP) PO SCH (22:00)
[2023-04-28] MEDS ORDERED: SODIUM CHLORIDE NASAL SPRAY 44 ML BOTTLE NS SCH (22:00)
[2023-04-28] MEDS: AMOXICILLIN 500 MG CAPSULE (FP) PO SCH (22:04)
[2023-04-28] MEDS: SODIUM CHLORIDE NASAL SPRAY 44 ML BOTTLE NS SCH (22:11)
[2023-04-29] MEDS: chlordiazePOXIDE HCL 10 MG CAPSULE PO PRN (02:49)
[2023-04-29] MEDS: chlordiazePOXIDE HCL 10 MG CAPSULE PO SCH (05:12)
[2023-04-29] MEDS: chlordiazePOXIDE 5 MG CAPSULE PO SCH (16:50)
[2023-04-30] MEDS ORDERED: chlordiazePOXIDE HCL 10 MG CAPSULE PO SCH (05:00)
[2023-04-30] MEDS: chlordiazePOXIDE 5 MG CAPSULE PO SCH (05:06)
[2023-04-30 10:02] VITALS: RESP 16
[2023-04-30] MEDS: hydrOXYzine PAMOATE 25 MG CAPSULE (FP) PO PRN (10:23)
[2023-04-30] MEDS: ACETAMINOPHEN 325 MG TABLET (FP) PO PRN (20:17)
[2023-05-01] MEDS ORDERED: chlordiazePOXIDE HCL 10 MG CAPSULE PO ONE (05:00)
[2023-05-01] MEDS: chlordiazePOXIDE 5 MG CAPSULE PO ONE (05:05)
[2023-05-01 09:52] VITALS: BP 112/65; PULSE 71; TEMP 98.1
== END 2023-05-01 10:22 | disposition home or self-care (01) | DRG 773 ==
LOC: YASAS 09:42 → Y6N 13:02
PROVIDERS: ADMIT Allergy & Immunology; ATTEND Surgery
PROC: HZ2ZZZZ Detoxification Services for Substance Abuse Treatment (ICD-10-PCS; principal; 2023-04-26)
DX: F10.230 Alcohol dependence with withdrawal, uncomplicated (principal); F14.20 Cocaine dependence, uncomplicated; F11.20 Opioid dependence, uncomplicated; F17.210 Nicotine dependence, cigarettes, uncomplicated; F19.282 Other psychoactive substance dependence with psychoactive substance-induced sleep disorder; F19.280 Other psychoactive substance dependence with psychoactive substance-induced anxiety disorder; F19.24 Other psychoactive substance dependence with psychoactive substance-induced mood disorder; G40.909 Epilepsy, unspecified, not intractable, without status epilepticus; I10 Essential (primary) hypertension; J44.9 Chronic obstructive pulmonary disease, unspecified; J45.20 Mild intermittent asthma, uncomplicated; K21.9 Gastro-esophageal reflux disease without esophagitis; M79.7 Fibromyalgia; Z88.8 Allergy status to other drugs, medicaments and biological substances
CPT/HCPCS: 36415; 80305; 85027; 86780; 87635; 87811; 93005; 93010; Q0162

== ENCOUNTER 2024-10-19 18:09 | Inpatient (IN) | payer OTHER ==
[2024-10-19 18:47] VITALS: BMI 23.3
[2024-10-19] MEDS ORDERED: NALOXONE (NARCAN) HCL 4 MG/0.1 ML SPRAY NS PRN (19:45)
[2024-10-19] MEDS ORDERED: ONDANSETRON *ODT* 4 MG TABLET SL PRN (19:45)
[2024-10-19] MEDS ORDERED: BISMUTH SUBSALICYLATE 524 MG/30 ML PO PRN (19:45)
[2024-10-19] MEDS ORDERED: IBUPROFEN 600 MG TABLET (FP) PO PRN (19:45)
[2024-10-19] MEDS ORDERED: MAGNESIUM HYDROX 2400MG/30ML ORAL SUSPENSION 30 ML CUP PO PRN (19:45)
[2024-10-19] MEDS ORDERED: DICYCLOMINE HCL 10 MG CAPSULE PO PRN (19:45)
[2024-10-19] MEDS ORDERED: POLYETHYLENE GLYCOL (HEALTHYLAX) 3350 17 GM PACKET PO PRN (19:45)
[2024-10-19] MEDS ORDERED: guaiFENesin 600 MG TABLET.ER (FP) PO PRN (19:45)
[2024-10-19] MEDS ORDERED: BENZONATATE 200 MG CAPSULE PO PRN (19:45)
[2024-10-19] MEDS ORDERED: IBUPROFEN 400 MG TABLET (FP) PO PRN (19:45)
[2024-10-19] MEDS: THIAMINE 100 MG TABLET PO SCH (23:11)
[2024-10-19] MEDS: MELATONIN 5 MG TABLETS PO SCH (23:11)
[2024-10-20] MEDS: METHOCARBAMOL 500 MG TABLET PO PRN (05:30)
[2024-10-20] MEDS: NICOTINE POLACRILEX 2 MG GUM BUC PRN (05:30)
[2024-10-20] MEDS ORDERED: ALBUTEROL SO4 HFA INHALER IH PRN (08:29)
[2024-10-20] MEDS: PRENATAL VITAMINS W/ FOLIC ACID TABLET (FP) PO SCH (09:47)
[2024-10-20] MEDS: BUDESONIDE/FORMETEROL FUMARATE 160/4.5 mcg INHALER IH SCH (09:47)
[2024-10-20] MEDS: NICOTINE 7 MG/24 HOURS TOPICAL PATCH TD SCH (09:47)
[2024-10-20 10:30] LABS: MCHC 32.2 g/dl (32.2-35.5); MEAN CELL VOLUME 91.7 fl (79.4-94.8); MEAN PLT VOLUME 10.4 fl (9.4-12.3); RDW 14.6 % (12.2-17.1)
[2024-10-20 10:58] LABS: GLUCOSE,RANDOM 70 mg/dL (74-106); TOT PROT 6.3 g/dl (6.4-8.2)
[2024-10-20 11:00] LABS: CO2 23 mmol/L (21-32)
[2024-10-20 11:01] LABS: ALK PHOS 50 U/L (40-150)
[2024-10-20 11:04] LABS: CREATININE 0.83 mg/dL (0.55-1.3); SGOT/AST 16 U/L (5-34); SGPT/ALT 13 U/L (0-55)
[2024-10-20] MEDS: MIRTAZAPINE 15 MG TABLET (FP) PO SCH (22:11)
[2024-10-21] MEDS: hydrOXYzine PAMOATE 25 MG CAPSULE (FP) PO PRN (07:59)
[2024-10-21] MEDS: ACETAMINOPHEN 325 MG TABLET (FP) PO PRN (09:19)
[2024-10-21] MEDS: MAG HYDROX/AL HYDROX/SIMETH 30 ML UNIT-DOSE CUP PO PRN (14:31)
[2024-10-21] MEDS: LOPERAMIDE HCL 2 MG CAPSULE PO PRN (21:42)
[2024-10-24] MEDS: BENZOCAINE/MENTHOL (CHLORASEPTIC ) LOZENGE MM PRN (05:31)
[2024-10-24 09:33] VITALS: BP 110/59; PULSE 72; RESP 15; TEMP 96.9
[2024-10-24] MEDS: NICOTINE 14 MG/24 HOURS TOPICAL PATCH TD SCH (10:24)
[2024-10-24] MEDS: NICOTINE POLACRILEX 4 MG GUM BUC PRN (11:20)
== END 2024-10-24 12:00 | disposition other institution (70) | DRG 773 ==
LOC: YASAS 18:09 → Y3N 21:34
PROVIDERS: ADMIT Neuromusculoskeletal Medicine & OMM; ATTEND Allergy & Immunology
PROC: HZ2ZZZZ Detoxification Services for Substance Abuse Treatment (ICD-10-PCS; principal; 2024-10-19)
DX: F13.230 Sedative, hypnotic or anxiolytic dependence with withdrawal, uncomplicated (principal); F11.20 Opioid dependence, uncomplicated; F14.10 Cocaine abuse, uncomplicated; F17.210 Nicotine dependence, cigarettes, uncomplicated; F31.81 Bipolar II disorder; G40.909 Epilepsy, unspecified, not intractable, without status epilepticus; G47.00 Insomnia, unspecified; I10 Essential (primary) hypertension; J44.9 Chronic obstructive pulmonary disease, unspecified; M54.50 Low back pain, unspecified; G89.29 Other chronic pain; Z88.8 Allergy status to other drugs, medicaments and biological substances
CPT/HCPCS: 36415; 80053; 80307; 85027; 86780; 93005; 93010